=== PATIENT | male | born 1960 | race Caucasian/White ===

== ENCOUNTER 2017-08-10 09:43 | Emergency (ER) | payer MEDICARE ==
[~2017-08-10] VITALS: Ht 180.3 cm; Wt 98.9 kg
[~2017-08-10 09:43] MED LIST: AMBIEN10 MG PO; ATORVASTATIN CA10 MG PO; CLONIDINE HCL0.1 MG PO; LYRICA150 MG PO; NORCO 10-325 T1 EACH PO; OXYCODONE-ACET1 EAC1 PO; SOMA350 MG PO; VALIUM10 MG PO; ZANAFLEX4 M1 PO; [UNRECOGNIZED DRUG - OTHER] PO
[2017-08-10] MEDS ORDERED: BYSTOLIC10 MG PO (09:51)
[2017-08-10] MEDS ORDERED: HYDROCODONE 7.5MG/IBUPROFEN 200MG TAB PO STA (10:22)
[2017-08-10 10:27] LABS: BASOPHILS # (AUTO) 0.1 (0.0-0.1); BASOPHILS % 0.5 % (0.0-1.0); EOSINOPHILS # (AUTO) 0.2 (0.0-0.4); HEMATOCRIT 46.6 % (38.2-49.6); HEMOGLOBIN 16.2 g/dL (14.0-18.0); LYMPHOCYTES # (AUTO) 1.7 (1.0-3.2); LYMPHOCYTES % 17.4 % (18.0-39.1); MEAN CORPUSCULAR HEMOGLOBIN 29.7 pg (28-32); MEAN CORPUSCULAR HGB CONC 34.8 g/dL (31-35); MEAN CORPUSCULAR VOLUME 85.3 fL (81-99); MONOCYTES # (AUTO) 0.5 (0.2-0.8); MONOCYTES % 5.4 % (4.4-11.3); NEUTROPHILS # (AUTO) 7.1 (2.1-6.9); NEUTROPHILS % 74.4 % (38.7-80.0); PLATELET COUNT 147 x10e3/uL (140-360); RED BLOOD COUNT 5.46 x10e6/uL (4.3-5.7); RED CELL DISTRIBUTION WIDTH 12.6 % (11.7-14.4)
[2017-08-10] MEDS ORDERED: FAMOTIDINE 20 MG TAB PO ONE (10:30)
[2017-08-10 10:31] LABS: INR 1.05; PROTHROMBIN TIME 12.9 seconds (11.9-14.5)
[2017-08-10 10:32] LABS: PARTIAL THROMBOPLASTIN TIME 26.6 seconds (23.8-35.5)
[2017-08-10] MEDS ORDERED: ONDANSETRON HCL INJ 2 MG/ML VIAL IV STA (10:37)
[2017-08-10 10:40] LABS: ALANINE AMINOTRANSFERASE 36 IU/L (0-55); ALBUMIN/GLOBULIN RATIO 1.3 (0.8-2.0); ALKALINE PHOSPHATASE 75 IU/L (40-150); AMYLASE 33 U/L (25-125); ANION GAP 12.1 mmol/L (8-16); BLOOD UREA NITROGEN 16 mg/dL (7-26); BUN/CREATININE RATIO 15 (6-25); CALCIUM 9.5 mg/dL (8.4-10.2); CARBON DIOXIDE 25 mmol/L (22-29); CHLORIDE 108 mmol/L (98-107); CREATINE KINASE 92 IU/L (30-200); CREATININE, SERUM 1.09 mg/dL (0.72-1.25); EST GLOMERULAR FILTRATION RATE > 60 ML/MIN (60-); GLUCOSE 150 mg/dL (74-118); LIPASE 34 U/L (8-78); POTASSIUM 4.1 mmol/L (3.5-5.1); SODIUM 141 mmol/L (136-145)
[2017-08-10] MEDS ORDERED: DONNATAL/LIDOCAINE/MAALOX 30 ML SUSP PO NR (10:45)
[2017-08-10 10:48] LABS: CLARITY,URINE SL CLOUDY (CLEAR); COLOR,URINE YELLOW (YELLOW); LEUKOCYTE ESTERASE ,URINE NEGATIVE (NEGATIVE)
[2017-08-10 10:49] LABS: BILIRUBIN,URINE NEGATIVE (NEGATIVE); EPITHELIAL CELLS,URINE RARE /LPF; KETONES,URINE NEGATIVE (NEGATIVE); NITRITE,URINE NEGATIVE (NEGATIVE); PROTEIN,URINE DIPSTICK NEGATIVE (NEGATIVE); RBC,URINE 0-5 /HPF (0-5); URINE UROBILINOGEN 0.2 mg/dL (0.2 - 1)
[2017-08-10 10:50] LABS: MUCUS,URINE RARE (RARE)
[2017-08-10 10:51] LABS: CALCIUM OXALATE CRYSTALS,UR RARE (FEW)
[2017-08-10] MEDS ORDERED: FENTANYL CITRATE/PF 100MCG/2 ML INJ IV ONE (11:00)
--- NOTE | 2017-08-10 11:40 | Diagnostic Imaging Report ---
PROCEDURE: CT ABDOMEN AND PELVIS WITH CONTRAST TECHNIQUE: The abdomen and pelvis were scanned utilizing a multidetector helical scanner from the diaphragm to the lesser trochanter after the IV administration of 100 cc of Isovue 370 and the oral administration of 100 mL of Isovue-370. Coronal and sagittal multiplanar reformations were obtained. COMPARISON: None. INDICATIONS: ABDOMINAL PAIN FINDINGS: LOWER THORAX: Normal. HEPATOBILIARY: Subcentimeter hypodensities in both lobes of the liver (series 2, images 27 and 13) are unchanged and likely represent small cysts. No suspicious hepatic lesions. There has been a cholecystectomy. No biliary ductal dilatation. SPLEEN: No splenomegaly. PANCREAS: No focal masses or ductal dilatation. ADRENALS: No adrenal nodules. KIDNEYS/URETERS: No hydronephrosis or solid mass lesions. 3 mm nonobstructing stone in the lower pole the right kidney (series 2 image 38). PELVIC ORGANS/BLADDER: Dystrophic calcifications of the prostate gland, unchanged. Bladder is unremarkable. PERITONEUM / RETROPERITONEUM: No free air or fluid. LYMPH NODES: No lymphadenopathy. VESSELS: Mild atherosclerotic calcifications of the aorta and its branches. GI TRACT: No distention or wall thickening. There are postsurgical changes from prior appendectomy. BONES AND SOFT TISSUES: Severe degenerative changes at L4-L5 and L5-S1 with sclerosis of L4 and L5. There is endplate irregularity at L5-S1. The appearance is unchanged since at least 12/17/2016. IMPRESSION: Stable 3 mm nonobstructing stone in the right kidney. No ureteral stones. No other findings to explain the patient's abdominal pain. There has been a cholecystectomy and appendectomy. Dictated by: Matthew Salazar M.D. on 08/10/2017 at 11:41 Electronically approved by: Matthew Salazar M.D. on 08/10/2017 at 11:41
[2017-08-10] MEDS ORDERED: SODIUM CHLORIDE 0.9% 50ML 50 ML ONE (11:42)
[2017-08-10] MEDS ORDERED: IOPAMIDOL 370 MG/ML 200 ML INFUS..BTL INJ ONE (11:43)
[2017-08-10] MEDS ORDERED: DONNATAL/LIDOCAINE/MAALOX 30 ML SUSP PO SCH (15:00)
== END 2017-08-10 12:24 | disposition home or self-care (01) ==
LOC: ER 09:43
DX: R10.13 Epigastric pain (principal); R11.0 Nausea; K29.20 Alcoholic gastritis without bleeding; K21.0 Gastro-esophageal reflux disease with esophagitis; F17.210 Nicotine dependence, cigarettes, uncomplicated
CPT/HCPCS: 36415; 74177; 80053; 81001; 82150; 82550; 82553; 83690; 84484; 85025; 85610; 85730; 93005; 99284; J2405; Q9967

== ENCOUNTER → 2018-02-03 | Day surgery (SDC) | payer MEDICARE ==
[~2018-02-03] MED LIST changes: +BYSTOLIC10 MG PO; +FENTANYL CITRATE/PF 100MCG/2 ML INJ ONE; +MIDAZOLAM HCL 2 MG/2 ML VIAL ONE; +NICOTINE PATCH; +PROPOFOL IV EMULSION 10 MG/ML 50 ML VIAL ONE
--- NOTE | 2018-02-03 13:08 | Operative Report ---
DATE OF PROCEDURE: February 03, 2018 REFERRING PHYSICIAN: Dr. Julien Wilson PROCEDURE PERFORMED: Esophagogastroduodenoscopy with biopsies and esophageal dilatation. INDICATIONS FOR EGD: Dysphagia, nausea, epigastric pain. MEDICATION: Patient was done under MAC. Please see anesthesiologist's note. PROCEDURE: With the patient in the left lateral decubitus position, the flexible fiberoptic Olympus gastroscope was introduced into the esophagus under direct visualization without any difficulty. There were some minute tongues of velvety red mucosa noted to extend proximally from the GE junction. Biopsies were obtained to rule out Mar's. The esophagus was then dilated to a size 52-Estonian Gibson. The scope was then advanced with ease into the stomach, and the mucosa overlying the antrum revealed some patchy intense erythema and moderate edema, and biopsies were obtained and sent to stain for H. pylori. There was an approximately 5-mm peripyloric fold noted that was biopsied. The scope was then advanced with ease into the 2nd portion of the duodenum. Some of the folds in the proximal 2nd portion were somewhat scalloped, and biopsies were obtained to rule out sprue. Mucosa overlying the duodenal bulb appeared to be within normal limits. The scope was then withdrawn back into the stomach and retroflexed. The mucosa overlying the fundus and the cardia appeared to be within normal limits. The scope was then straightened out. The stomach was decompressed. The scope was subsequently withdrawn. Patient tolerated the procedure well. IMPRESSION 1. Distal esophagitis, mild. 2. Esophagus dilated to a size 52-Estonian Gibson. 3. Rule out Mar's esophagus. 4. Gastritis, biopsied. Biopsies sent to stain for H. pylori. 5. Peripyloric fold, approximately 5 mm, biopsied. 6. Rule out sprue. PLAN: Follow up histology. Initiate Protonix 40 mg 1 p.o. q.a.m. a.c. Job#: [id number] cc:MOLINA WILSON DO
[2018-02-03 13:25] VITALS: BP 153/102
== END | disposition home or self-care (01) ==
LOC: OR 09:13
PROVIDERS: ATTEND Internal Medicine Gastroenterology
DX: K22.2 Esophageal obstruction (principal); K29.70 Gastritis, unspecified, without bleeding; K31.89 Other diseases of stomach and duodenum; K59.00 Constipation, unspecified; I10 Essential (primary) hypertension; F41.9 Anxiety disorder, unspecified; K21.9 Gastro-esophageal reflux disease without esophagitis; F17.210 Nicotine dependence, cigarettes, uncomplicated; Z88.6 Allergy status to analgesic agent; Z88.8 Allergy status to other drugs, medicaments and biological substances; Z01.810 Encounter for preprocedural cardiovascular examination; Z68.30 Body mass index [BMI] 30.0-30.9, adult
CPT/HCPCS: 43239; 43450; 88305; 88312; 93005; J2250

== ENCOUNTER 2018-05-17 13:46 | Emergency (ER) | payer MEDICARE ==
[~2018-05-17] VITALS: Ht 180.3 cm; Wt 103.4 kg
[~2018-05-17 13:46] MED LIST changes: -FENTANYL CITRATE/PF 100MCG/2 ML INJ ONE; -MIDAZOLAM HCL 2 MG/2 ML VIAL ONE; -PROPOFOL IV EMULSION 10 MG/ML 50 ML VIAL ONE
[2018-05-17] MEDS ORDERED: CEFTRIAXONE SOD 1 GM/NS 50 ML 50 ML IV ONE ×3 (13:55→15:30)
[2018-05-17] MEDS ORDERED: METHYLPREDNISOLONE SOD SUCC 125 MG/2ML VIAL IV STA (13:55)
[2018-05-17] MEDS ORDERED: AZITHROMYCIN 500MG/NS 250 ML 250 ML IV ONE ×2 (13:55→15:30)
[2018-05-17] MEDS ORDERED: IPRATROPIUM BROMIDE 0.02% 2.5 ML NEB NEB STA (13:55)
[2018-05-17] MEDS ORDERED: SODIUM CHLORIDE 0.9% 1000ML 1,000 ML IV STA (13:55)
[2018-05-17] MEDS ORDERED: BENZONATATE 100 MG CAP PO ONE ×2 (14:00→15:30)
[2018-05-17 14:33] LABS: BASOPHILS % 0.5 % (0.0-1.0); EOSINOPHILS # (AUTO) 0.1 (0.0-0.4); EOSINOPHILS % 0.8 % (0.0-6.0); HEMATOCRIT 42.1 % (38.2-49.6); HEMOGLOBIN 14.6 g/dL (14.0-18.0); LYMPHOCYTES # (AUTO) 0.4 (1.0-3.2); LYMPHOCYTES % 6.5 % (18.0-39.1); MEAN CORPUSCULAR HGB CONC 34.7 g/dL (31-35); MEAN CORPUSCULAR VOLUME 86.6 fL (81-99); MONOCYTES # (AUTO) 0.6 (0.2-0.8); MONOCYTES % 9.5 % (4.4-11.3); NEUTROPHILS % 82.4 % (38.7-80.0); PLATELET COUNT 143 x10e3/uL (140-360); RED BLOOD COUNT 4.86 x10e6/uL (4.3-5.7); RED CELL DISTRIBUTION WIDTH 12.5 % (11.7-14.4)
[2018-05-17 14:40] LABS: INR 0.9; PARTIAL THROMBOPLASTIN TIME 28.3 seconds (23.8-35.5)
[2018-05-17] MEDS ORDERED: ACETAMINOPHEN 325 MG TAB PO ONE ×2 (14:45→15:30)
[2018-05-17 14:51] LABS: ALANINE AMINOTRANSFERASE 34 IU/L (0-55); ALBUMIN 4.1 g/dL (3.5-5.0); ALBUMIN/GLOBULIN RATIO 1.7 (0.8-2.0); ALKALINE PHOSPHATASE 82 IU/L (40-150); ANION GAP 13.1 mmol/L (8-16); BLOOD UREA NITROGEN 15 mg/dL (7-26); BUN/CREATININE RATIO 12 (6-25); CARBON DIOXIDE 22 mmol/L (22-29); CHLORIDE 103 mmol/L (98-107); CREATINE KINASE 214 IU/L (30-200); CREATININE, SERUM 1.26 mg/dL (0.72-1.25); EST GLOMERULAR FILTRATION RATE 59 ML/MIN (60-); GLUCOSE 105 mg/dL (74-118); POTASSIUM 4.1 mmol/L (3.5-5.1); SODIUM 134 mmol/L (136-145)
[2018-05-17 15:02] LABS: B-TYPE NATRIURETIC PEPTIDE2 102.7 pg/mL (0-100)
[2018-05-17] MEDS ORDERED: AZITHROMYCIN 500MG/NS 250 ML 250 ML ONE (15:25)
[2018-05-17] MEDS ORDERED: ACETAMINOPHEN 325 MG TAB ONE (15:26)
[2018-05-17] MEDS ORDERED: BENZONATATE 100 MG CAP ONE (15:27)
[2018-05-17 15:36] LABS: INFLUENZAE A&B ANTIGEN (RAPID) NEGATIVE (NEGATIVE)
[2018-05-17 15:37] LABS: STREPTOCOCCUS GRP A ANTIGEN NEGATIVE (NEGATIVE)
[2018-05-17] MEDS ORDERED: HYDROCODONE/APAP 10MG-325MG TAB PO ONE (16:30)
--- NOTE | 2018-05-17 16:33 | Diagnostic Imaging Report ---
Frontal and lateral views of the chest. HISTORY: Trouble breathing COMPARISON: None available. DISCUSSION: Lungs: Prominence of the peribronchial markings. No evidence of a consolidative pneumonia or pulmonary alveolar edema. A 5 mm left mid to upper lung zone calcified granuloma. Pleura: No pleural effusion or pneumothorax. Heart and mediastinum: The cardiomediastinal silhouette appears unremarkable. Bones: Straightening of the normal thoracic kyphosis. IMPRESSION: 1. Findings which could be seen in the setting of bronchitis. 2. No consolidative pneumonia. Signed by: Dr. Gary Peralta D.O., M.M.M. on 05/17/2018 3:23 PM
[2018-05-17] MEDS ORDERED: HYDROMORPHONE 1MG/1ML INJ IV PRN (16:45)
[2018-05-17] MEDS ORDERED: HYDROMORPHONE 2MG/ML 2 MG/ML ML IV PRN (17:00)
[2018-05-17 18:12] VITALS: BP 134/90
== END 2018-05-17 19:25 | disposition home or self-care (01) ==
LOC: ER 13:46
DX: R05 Cough (principal); J20.9 Acute bronchitis, unspecified; S39.012A Strain of muscle, fascia and tendon of lower back, initial encounter; I10 Essential (primary) hypertension
CPT/HCPCS: 36415; 71046; 80053; 82550; 82553; 83518; 83605; 83880; 84484; 85025; 85610; 85730; 87040; 87070; 87400; 99284; J0456; J0696; J1170; J2930; J7030

== ENCOUNTER 2018-05-19 19:54 | Inpatient (IN) | payer MEDICARE ==
[~2018-05-19] VITALS: Ht 180.3 cm; Wt 102.3 kg
[2018-05-19] MEDS ORDERED: ALBUTEROL SULF 0.083% NEB SOLN 3 ML NEB NEB STA (20:44)
[2018-05-19] MEDS ORDERED: IPRATROPIUM BROMIDE 0.02% 2.5 ML NEB NEB STA (20:44)
--- NOTE | 2018-05-19 21:15 | NUR ---
RESP CALLED FOR HHN [place]
--- NOTE | 2018-05-19 21:27 | Diagnostic Imaging Report ---
EXAM: CHEST 2 VIEWS, PA and lateral INDICATION: Cough COMPARISON: PA and lateral view of the chest May 17, 2017 FINDINGS: LINES/TUBES: None LUNGS: No consolidations or edema. Nodular density projects over the left hilum is most consistent with an end-on vessel. PLEURA: No effusions or pneumothorax. HEART AND MEDIASTINUM: Normal size and contour. BONES AND SOFT TISSUES: No acute findings. 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 IMPRESSION: No consolidative pneumonia. Signed by: Dr. Katie Jang M.D. on 05/19/2018 9:24 PM
[2018-05-19] MEDS ORDERED: PANTOPRAZOLE 40 MG 10ML VIAL IV STA (22:49)
[2018-05-19] MEDS ORDERED: ONDANSETRON HCL INJ 2 MG/ML VIAL IV STA (22:49)
[2018-05-19] MEDS ORDERED: SODIUM CHLORIDE 0.9% 1000ML 1,000 ML IV STA ×2 (22:49→23:49)
[2018-05-19] MEDS ORDERED: HYDROMORPHONE 1MG/1ML INJ IV STA (22:49)
[2018-05-19] MEDS ORDERED: METHYLPREDNISOLONE SOD SUCC 125 MG/2ML VIAL IV STA (22:57)
[2018-05-19 23:08] LABS: BASOPHILS % 0.5 % (0.0-1.0); EOSINOPHILS % 0.2 % (0.0-6.0); HEMATOCRIT 43.5 % (38.2-49.6); HEMOGLOBIN 14.5 g/dL (14.0-18.0); LYMPHOCYTES % 23.8 % (18.0-39.1); MEAN CORPUSCULAR HGB CONC 33.3 g/dL (31-35); MEAN CORPUSCULAR VOLUME 90.1 fL (81-99); MONOCYTES # (AUTO) 0.5 (0.2-0.8); MONOCYTES % 11.3 % (4.4-11.3); NEUTROPHILS # (AUTO) 2.8 (2.1-6.9); PLATELET COUNT 124 x10e3/uL (140-360); RED BLOOD COUNT 4.83 x10e6/uL (4.3-5.7); RED CELL DISTRIBUTION WIDTH 12.6 % (11.7-14.4)
[2018-05-19] MEDS ORDERED: HYDROMORPHONE 2MG/ML 2 MG/ML ML ONE (23:10)
[2018-05-19 23:27] LABS: ALBUMIN 3.7 g/dL (3.5-5.0); ALBUMIN/GLOBULIN RATIO 1.2 (0.8-2.0); ANION GAP 17.9 mmol/L (8-16); CALCIUM 9.3 mg/dL (8.4-10.2); CREATININE, SERUM 1.27 mg/dL (0.72-1.25); MAGNESIUM 2.1 MG/DL (1.3-2.1); POTASSIUM 3.9 mmol/L (3.5-5.1)
[2018-05-19 23:33] LABS: CREATINE KINASE MB 0.9 ng/mL (0-5.0)
[2018-05-19 23:44] LABS: INR 0.84; PARTIAL THROMBOPLASTIN TIME 28.8 seconds (23.8-35.5); PROTHROMBIN TIME 12.3 seconds (11.9-14.5)
[2018-05-19] MEDS ORDERED: SODIUM CHLORIDE 0.9% 1000ML 1,000 ML ONE (23:58)
[2018-05-20] VITALS (8 sets, daily range): BP systolic 136–159; BP diastolic 81–92
[2018-05-20] MEDS: CEFTRIAXONE SOD 1 GM/NS 50 ML 50 ML IV SCH ×2 (00:03→12:33)
[2018-05-20] MEDS: AZITHROMYCIN 500MG/NS 250 ML 250 ML IV SCH ×2 (00:03→08:48)
--- NOTE | 2018-05-20 00:07 | NUR ---
pt given urinal, inst on need for urine, verbalized understanding. call painter in reach
--- NOTE | 2018-05-20 00:54 | Diagnostic Imaging Report ---
EXAM: CT CHEST W INDICATION: Shortness of breath COMPARISON: None TECHNIQUE: Multidetector CT scanning of the chest was performed. Coronal and sagittal multiplanar reformations were obtained. Dose modulation, iterative reconstruction, and/or weight based adjustment of the mA/kV was utilized to reduce the radiation dose to as low as reasonably achievable. PE protocol performed. IV Contrast: 100 cc Isovue-370 CTDIvol has been reviewed. It is below the limits set by the Radiation Protocol Committee (RPC). FINDINGS: LUNGS AND AIRWAYS: The trachea and major bronchi are unremarkable. No consolidations or edema. Mild central bronchial thickening. PLEURA: No effusions or pneumothorax. HEART, MEDIASTINUM, VESSELS: The heart is within normal size limits. There is no pericardial effusion. No mediastinal mass or lymphadenopathy. No evidence of a pulmonary embolism. Multiple artifacts in subsegmental vessels secondary to motion. UPPER ABDOMEN: Normal MUSCULOSKELETAL: No acute findings. IMPRESSION: No evidence of a pulmonary embolism. Signed by: Dr. Katie Jang M.D. on 05/20/2018 12:51 AM
[2018-05-20] MEDS ORDERED: ATORVASTATIN CA10 MG PO (01:06)
[2018-05-20] MEDS ORDERED: BYSTOLIC10 MG PO (01:06)
[2018-05-20] MEDS ORDERED: DIAZEPAM10 MG PO (01:06)
[2018-05-20] MEDS ORDERED: ZOLPIDEM TARTRA10 MG PO (01:06)
[2018-05-20] MEDS ORDERED: HYDROCODON-ACE1 EAC9 PO (01:06)
[2018-05-20] MEDS ORDERED: ONDANSETRON HCL INJ 2 MG/ML VIAL IV PRN (01:15)
[2018-05-20] MEDS ORDERED: FAMOTIDINE 20 MG/2 ML VIAL IV SCH (01:15)
[2018-05-20] MEDS ORDERED: ZOLPIDEM TARTRATE 10 MG TAB PO STA (01:20)
[2018-05-20 01:36] LABS: AMPHETAMINES SCREEN,URINE NEGATIVE (NEGATIVE); BENZODIAZEPINES SCREEN,URINE POSITIVE (NEGATIVE); PHENCYCLIDINE SCREEN,URINE NEGATIVE (NEGATIVE)
[2018-05-20] MEDS: SODIUM CHLORIDE 0.9% 1000ML 1,000 ML IV SCH ×4 (01:38→18:17)
--- NOTE | 2018-05-20 01:38 | NUR ---
pt requesting higher dose of dilaudid. states 1mg not helping his pain. dr encinas aware, no new orders, advised pt he may receive dilaudid 1mg q4hr prn pain, verbalized understanding.
[2018-05-20 01:41] LABS: BILIRUBIN,URINE NEGATIVE (NEGATIVE); CLARITY,URINE CLEAR (CLEAR); COLOR,URINE YELLOW (YELLOW); KETONES,URINE 1+ (NEGATIVE); LEUKOCYTE ESTERASE ,URINE NEGATIVE (NEGATIVE); NITRITE,URINE NEGATIVE (NEGATIVE); PROTEIN,URINE DIPSTICK NEGATIVE (NEGATIVE); URINE UROBILINOGEN 0.2 mg/dL (0.2 - 1)
--- NOTE | 2018-05-20 01:47 | NUR ---
attempted to call report without success
[2018-05-20 01:49] LABS: BACTERIA,URINE RARE /HPF; EPITHELIAL CELLS,URINE RARE /LPF; MUCUS,URINE FEW (RARE); RBC,URINE 0-5 /HPF (0-5); WBC,URINE (MAN) 0-5 /HPF (0-5)
[2018-05-20] MEDS: HYDROMORPHONE 2MG/ML 2 MG/ML ML IV PRN ×5 (03:15→20:19)
--- NOTE | 2018-05-20 03:18 | NUR ---
CONT TO COMPLAIN OF CHEST WALL AND BACK PAIN, REQUESTING PAIN MEDICATIONS, MEDICATED PER ORDERS.
[2018-05-20] MEDS: ALBUTEROL SULF 0.083% NEB SOLN 3 ML NEB NEB SCH ×6 (04:15→23:15)
[2018-05-20] MEDS: IPRATROPIUM BROMIDE 0.02% 2.5 ML NEB NEB SCH ×6 (04:15→23:15)
[2018-05-20] MEDS ORDERED: SODIUM CHLORIDE 0.9% 50ML 50 ML ONE (06:12)
[2018-05-20] MEDS ORDERED: IOPAMIDOL 370 MG/ML 200 ML INFUS..BTL INJ ONE (06:12)
[2018-05-20 06:47] LABS: BASOPHILS % 0.3 % (0.0-1.0); HEMATOCRIT 37.2 % (38.2-49.6); HEMOGLOBIN 12.4 g/dL (14.0-18.0); LYMPHOCYTES # (AUTO) 0.5 (1.0-3.2); LYMPHOCYTES % 16.3 % (18.0-39.1); MEAN CORPUSCULAR HEMOGLOBIN 29.5 pg (28-32); MEAN CORPUSCULAR HGB CONC 33.3 g/dL (31-35); MEAN CORPUSCULAR VOLUME 88.4 fL (81-99); MONOCYTES # (AUTO) 0.1 (0.2-0.8); MONOCYTES % 2.6 % (4.4-11.3); NEUTROPHILS # (AUTO) 2.5 (2.1-6.9); NEUTROPHILS % 80.5 % (38.7-80.0); PLATELET COUNT 116 x10e3/uL (140-360); RED BLOOD COUNT 4.21 x10e6/uL (4.3-5.7); RED CELL DISTRIBUTION WIDTH 12.7 % (11.7-14.4)
--- NOTE | 2018-05-20 07:15 | NUR ---
Pt alert resp even and unlabored at this time no distress noted, pt able to make needs known, no c/o pain when asked, call light in reach.
[2018-05-20 07:16] LABS: CREATINE KINASE MB 1.2 ng/mL (0-5.0)
[2018-05-20 07:29] LABS: ALANINE AMINOTRANSFERASE 27 IU/L (0-55); ALBUMIN 3.1 g/dL (3.5-5.0); ALBUMIN/GLOBULIN RATIO 1.1 (0.8-2.0); ALKALINE PHOSPHATASE 58 IU/L (40-150); ANION GAP 11.5 mmol/L (8-16); BLOOD UREA NITROGEN 12 mg/dL (7-26); BUN/CREATININE RATIO 12 (6-25); CALCIUM 8.3 mg/dL (8.4-10.2); CARBON DIOXIDE 24 mmol/L (22-29); CHLORIDE 102 mmol/L (98-107); CREATININE, SERUM 1.03 mg/dL (0.72-1.25); EST GLOMERULAR FILTRATION RATE > 60 ML/MIN (60-); GLUCOSE 148 mg/dL (74-118); POTASSIUM 4.5 mmol/L (3.5-5.1); SODIUM 133 mmol/L (136-145)
--- NOTE | 2018-05-20 07:50 | NUR ---
spoke with Dr. Steve, about pt meds, he states cont home meds.
[2018-05-20] MEDS: FAMOTIDINE 20 MG/2 ML VIAL IV SCH ×2 (08:31→20:19)
[2018-05-20] MEDS: ASPIRIN 81 MG ENTERIC COATED PO SCH (08:31)
[2018-05-20] MEDS: HYDROCODONE/APAP 10MG-325MG TAB PO SCH ×4 (08:32→20:20)
[2018-05-20] MEDS: DIAZEPAM 5 MG TAB PO SCH (08:48)
[2018-05-20] MEDS ORDERED: HYDROCODONE/APAP 10MG-325MG TAB PO SCH (09:00)
[2018-05-20] MEDS ORDERED: NON-FORMULARY MEDICATION (Diazepam 10 MG) PO SCH (09:00)
[2018-05-20] MEDS ORDERED: ATORVASTATIN 10 MG TAB PO SCH ×3 (09:00→21:00)
--- NOTE | 2018-05-20 10:55 | NUR ---
SOCIAL WORK INITIAL ASSESSMENT Textile Science Technician to bedside to discuss plan of care with patient/family. CM/SW role and care transitions discussed. Anticipated discharge plan discussed along with duration of care. CM/SW discussed patients right to make decisions in care. CM/SW work hours given. Patient lives: IN OWN HOUSE WITH DAUGHTER Admit/Transfer: VIA ED FROM HOME POA/Emergency contact: SISTER KHALIF HATHAWAY [phone] Current/Previous Home Health: NONE PCP/Follow-up Care: [facility] Current/Previous DME: NONE Other Services: NONE Employment Status: RETIRED Areas of Concerns: QUIT SMOKING 1ST OF YEAR ON PATCH Referral Needs: NONE Education Needs: NONE IMM/BUSTOS given and signed (if applicable): IMM AND BUSTOS IN CHART Goal for discharge: RETURN HOME INDEPENDENTLY CM/SW left business card at the bedside with contact information. Name and number was also written on the patients whiteboard. Patient verbalized understanding of discussion. CM will follow-up with ongoing discharge and transition of care needs.
[2018-05-20] MEDS ORDERED: METHYLPREDNISOLONE SOD SUCC 125 MG/2ML VIAL IV ONE (11:30)
[2018-05-20] MEDS: NEBIVOLOL 10 MG TAB PO SCH (12:33)
[2018-05-20] MEDS: METHYLPREDNISOLONE SOD SUCC 40 MG/ML VIAL 1ML IV SCH ×2 (15:31→21:17)
[2018-05-20 16:00] LABS: CREATINE KINASE MB 1.2 ng/mL (0-5.0)
--- NOTE | 2018-05-20 19:08 | NUR ---
report given to on coming nurse for continued care.
--- NOTE | 2018-05-20 19:10 | NUR ---
REPORT RECEIVED FROM OFF GOING NURSE, PT RESTING IN BED ALERT AND ORIENTED, NO DISTRESS NOTED, DENIES NEEDS, CALL LIGHT IN REACH INSTRUCTED TO CALL WITH NEEDS
[2018-05-20] MEDS: ZOLPIDEM TARTRATE 10 MG TAB PO PRN (20:19)
[2018-05-20] MEDS ORDERED: NON-FORMULARY MEDICATION (Zolpidem Tartrate 10 MG) PO SCH (21:00)
[2018-05-21] VITALS (9 sets, daily range): BP systolic 158–169; BP diastolic 74–96
[2018-05-21] MEDS: SODIUM CHLORIDE 0.9% 1000ML 1,000 ML IV SCH ×5 (00:07→23:51)
[2018-05-21] MEDS: HYDROMORPHONE 2MG/ML 2 MG/ML ML IV PRN ×2 (00:19→04:19)
[2018-05-21] MEDS: ALBUTEROL SULF 0.083% NEB SOLN 3 ML NEB NEB SCH ×5 (03:05→23:32)
[2018-05-21] MEDS: IPRATROPIUM BROMIDE 0.02% 2.5 ML NEB NEB SCH ×5 (03:05→23:32)
[2018-05-21] MEDS: METHYLPREDNISOLONE SOD SUCC 40 MG/ML VIAL 1ML IV SCH ×3 (05:22→21:11)
[2018-05-21 05:48] LABS: CHOL/HDL RATIO 3.6 (3.9-4.7)
[2018-05-21] MEDS ORDERED: FENTANYL 50 MCG/HR PATCH TOP SCH (07:00)
--- NOTE | 2018-05-21 07:23 | NUR ---
pt at nurses station during shift change. wanting to review his emar. upset about pain medication schedule "thought i was getting it like ever 2 hours between the pill and dilala". ed pt of current meds ordered and schedule availability. night nurse ed pt new orders recvd to change medications. pt wanting patch now and norco 'as soon as its due'. pt does not appear to have any s/s distress at this time, returned to his room. when doing morning rounds to room, pt stated 'dont forget to bring that patch brayden and the pain pill as soon as due. i need new batteries in the clock too so i can keep up with the schedule'. ed pt would admin rx as soon as available. no s/s distress noted.
[2018-05-21] MEDS: ASPIRIN 81 MG ENTERIC COATED PO SCH (08:41)
[2018-05-21] MEDS: AZITHROMYCIN 500MG/NS 250 ML 250 ML IV SCH (08:41)
[2018-05-21] MEDS: FAMOTIDINE 20 MG/2 ML VIAL IV SCH (08:41)
[2018-05-21] MEDS: HYDROCODONE/APAP 10MG-325MG TAB PO SCH ×4 (08:41→21:00)
[2018-05-21] MEDS: NEBIVOLOL 10 MG TAB PO SCH (08:41)
[2018-05-21] MEDS: DIAZEPAM 5 MG TAB PO SCH (08:42)
[2018-05-21] MEDS ORDERED: MORPHINE SULFATE 2 MG/ML SYR 1ML IV PRN (11:00)
--- NOTE | 2018-05-21 11:00 | NUR ---
pt upset about dilaudid being dc, states he normally 'takes 3 norco at home at a time'. states he 'was doing just fine with the dilala' and now his stomach is hurting him. ed pt about opiod constipation. ed would request medication to help with bm and speak with MD about complaints.
[2018-05-21] MEDS ORDERED: MORPHINE SULFATE INJ 4 MG/ML INJ 1ML IV PRN (11:15)
[2018-05-21] MEDS: BISACODYL 5 MG TAB EC PO SCH (11:30)
[2018-05-21] MEDS: GUAIFENESIN 200 MG/10 ML UDC PO PRN ×2 (11:30→21:12)
[2018-05-21] MEDS: CEFTRIAXONE SOD 1 GM/NS 50 ML 50 ML IV SCH ×3 (11:30→23:51)
[2018-05-21] MEDS: LIDOCAINE 5% PATCH TP SCH (11:30)
[2018-05-21] MEDS: DOCUSATE SODIUM 100 MG CAP PO SCH (11:30)
--- NOTE | 2018-05-21 11:30 | NUR ---
recv orders to add lidocaine patch to pt, along with iv and bm medications. admin to pt. pt resting in bed with no s/s distress. pt stated 'make sure to have my pill when due at 1300'.
--- NOTE | 2018-05-21 11:44 | History and Physical ---
HISTORY OF PRESENT ILLNESS: A 58-year-old male with past medical history positive for COPD and chronic back pain. Came here with shortness of breath and cough and fever and worsening of the back pain. REVIEW OF SYSTEMS CARDIOVASCULAR: No chest pain or palpitation. RESPIRATORY: He does have shortness of breath and cough. GASTROINTESTINAL: No nausea. No vomiting. No diarrhea. GENITOURINARY: No frequency or dysuria. ALLERGIES: HE IS ALLERGIC TO CODEINE AND MORPHINE LISINOPRIL. SOCIAL HISTORY: He smokes. He drinks alcohol socially according to him. PAST MEDICAL HISTORY: Positive for chronic back pain and COPD. PHYSICAL EXAMINATION VITAL SIGNS: Blood pressure 168/90, temperature 96.8, heart rate 82 per minute, respiratory rate is 20 per minute, oxygen saturation 100%. Chest x-ray showed no significant abnormalities. Chest CT: no pulmonary embolism. LABORATORY DATA: On the blood work, we have BMP with sodium 133, potassium 4.5, chloride 102, CO2 24, BUN 12, creatinine 1.03, glucose 148. CBC white blood count 3.13, hemoglobin 12.4, hematocrit 37.2, platelet count 116,000. PT 12.3, INR 0.84, PTT 28.8. AST 34, ALT 37, total bilirubin 0.3, alkaline phosphatase 58. FINAL IMPRESSION 1. Chronic obstructive pulmonary disease exacerbation. 2. Rhabdomyolysis. 3. Chronic back pain. 4. Pancytopenia. 5. Uncontrolled hypertension. PLAN OF TREATMENT: Going to get a pulmonary consult, Dr. Regan; pain management consult, Dr. Chanel. The patient had been started on albuterol and Atrovent q.4 hours as needed for shortness of breath, ceftriaxone 2 g IV daily, Zithromax 250 mg IV daily, Pepcid 20 mg twice a day, methylprednisolone 40 mg IV q.8 hours, fentanyl patch 50 mcg q.72 hours, Goodrich 1 tablet q.6 hours as needed, guaifenesin 400 mg q.4 hours as needed, mg daily, Bystolic 10 mg daily, diazepam 10 mg daily as needed for anxiety. Lipitor has been placed on hold because of rhabdomyolysis. Continue Ambien 10 mg at night p.r.n. for sleep. Continue normal saline 125 mL an hour. CPK is going to be ordered for today. We are going to start the patient also on Norvasc at 5 mg daily because of hypertension. Job#: [id number] VIRI
--- NOTE | 2018-05-21 16:46 | NUR ---
pt resting in bed, sleep on side. no s/s distress
--- NOTE | 2018-05-21 19:10 | NUR ---
REPORT RECEIVED FROM OFF GOING NURSE, PT RESTING IN BED ALERT AND ORIENTED, NO DISTRESS NOTED, IV INFUSING PER ORDER, CALL LIGHT IN REACH, INSTRUCTED TO CALL WITH NEEDS
[2018-05-21] MEDS: ZOLPIDEM TARTRATE 10 MG TAB PO PRN (21:11)
[2018-05-21] MEDS: KETOROLAC TROMETHAMINE 30 MG/ML VIAL IV PRN (21:33)
--- NOTE | 2018-05-21 22:42 | NUR ---
PT DEPARTING UNIT, PT AMBULATING WITH WHEEL CHAIR AT SIDE, PT REFUSING WHEEL CHAIR, NO DISTRESS NOTED, BELONGINGS AND STAFF WITH PT, NO NEEDS VOICED, TELEMETRY WORN, IV INFUSING PER ORDER
[2018-05-22 00:31] VITALS: BP 157/86
[2018-05-22] MEDS: HYDROCODONE/APAP 10MG-325MG TAB PO PRN ×3 (00:48→12:10)
--- NOTE | 2018-05-22 00:50 | NUR ---
pt removed telemetry box stated "they have already monitored my heart for 24 hours, i dont need it", asked pt if he would put tele box back on "stated no i dont want it", Dr. Belle notified and order to DC, tele box #[id number] returned to tele nurse
[2018-05-22] MEDS: KETOROLAC TROMETHAMINE 30 MG/ML VIAL IV PRN ×3 (01:30→10:34)
[2018-05-22] MEDS: ALBUTEROL SULF 0.083% NEB SOLN 3 ML NEB NEB SCH ×3 (03:05→10:50)
[2018-05-22] MEDS: IPRATROPIUM BROMIDE 0.02% 2.5 ML NEB NEB SCH ×3 (03:05→11:25)
--- NOTE | 2018-05-22 03:19 | Consultation ---
DATE OF CONSULTATION: May 21, 2018 PULMONARY MEDICINE CONSULT PRIMARY CARE DOCTOR: Dr. Vaughan. REFERRING PHYSICIAN: Dr. Steve. REASON FOR REFERRAL: Shortness of breath. HISTORY: Mr. Lees is a pleasant 58-year-old gentleman with shortness of breath. He has associated cough. There were some fevers that he had. The patient was having increasing back pain due to the cough. He also has abdominal pain due to the cough. Four days prior to coming to the hospital, he did go to another emergency room for a visit, but he failed treatment with steroids and antibiotics. He presents back to the hospital for evaluation. Of note, chest x-ray without acute abnormalities and CT chest with no evidence of PE and otherwise unremarkable. He is admitted as he retains significant work of breathing. PAST MEDICAL HISTORY: Chronic back pain; COPD, he was diagnosed with asthma in his 20s per report; GERD, mild to moderate. No definite allergies. OUTPATIENT MEDICATIONS: As per electronic record. Of note, there are no respiratory medicines that he chronically takes. ALLERGIES: CODEINE, LISINOPRIL, AND MORPHINE. FAMILY HISTORY: Noncontributory to this diagnosis. SOCIAL HISTORY: Patient smokes from age 16 to 58, active, 1.5 packs per day. Alcohol, 2 drinks of liquor per day. No drugs. He is retired for 2 years due to back problems and he was a emergency medical technician facilities operator formerly. REVIEW OF SYSTEMS GENERAL: No weight changes. OPHTHALMOLOGY: No double vision. ENT: No dry mouth. ENDOCRINE: No thyroid disease known. PULMONARY: No hemoptysis. CARDIAC: No heart attacks. GI: Denies constipation. : No blood in the urine. MUSCULOSKELETAL: Mild arthritis. NEUROLOGIC: No seizures. DERMATOLOGIC: No rashes. PSYCHIATRIC: No depression. PHYSICAL EXAMINATION VITALS: Afebrile. Vital signs noted per electronic record. GENERAL: No acute distress, although it hurts him to cough and he is intermittently coughing. HEENT: Normocephalic and atraumatic. Throat is midline. NECK: Supple. LUNGS: Bilateral air entry is moderate, few rhonchi, no rales. CARDIOVASCULAR: S1 and S2. No murmurs, rubs or gallops. ABDOMEN: Soft and nontender. EXTREMITIES: No clubbing. No cyanosis. There is no edema. INTEGUMENT: No rash. No purpura. LABS: White count 4, hematocrit 44, and platelets 124. No eosinophilia on the lab work. Sodium 133, BUN 12, and creatinine 1.0. Calcium 8.3. CK was 652 with unremarkable troponins. Albumin 3.1, total protein is 5.8. IMPRESSION 1. Exacerbation of respiratory disease, presumptive chronic obstructive pulmonary disease. 2. Obesity, possible obstructive sleep apnea or possible obesity hypoventilation syndrome. 3. Reported history of asthma, diagnosed in 20s. 4. Edor-wo-eznqwwgh gastroesophageal reflux disease. 5. Chronic back pain with debility. 6. Thrombocytopenia. 7. Mild rhabdomyolysis. PLAN: Admit the patient for failure of outpatient therapy. Steroids. Bronchodilators. Antibiotics. Cough medicines. Supportive care. Check alpha-1 antitrypsin level and check IgE level to see how allergic he is. Thank you very much, Dr. Steve, for allowing me the chance to participate in the care of Mr. Lees. Do not hesitate to contact me if I can help in any way. Job#: [id number] AYLA
--- NOTE | 2018-05-22 04:30 | NUR ---
pt refused 4am vitals
[2018-05-22 05:55] LABS: ANION GAP 13.2 mmol/L (8-16); BLOOD UREA NITROGEN 14 mg/dL (7-26); BUN/CREATININE RATIO 17 (6-25); CALCIUM 8.8 mg/dL (8.4-10.2); CARBON DIOXIDE 26 mmol/L (22-29); CHLORIDE 105 mmol/L (98-107); CREATININE, SERUM 0.84 mg/dL (0.72-1.25); EST GLOMERULAR FILTRATION RATE > 60 ML/MIN (60-); GLUCOSE 156 mg/dL (74-118); POTASSIUM 4.2 mmol/L (3.5-5.1); SODIUM 140 mmol/L (136-145)
[2018-05-22 07:56] VITALS: BP 147/93
[2018-05-22] MEDS ORDERED: AMLODIPINE BESYLATE 5 MG TAB PO SCH ×2 (09:00)
[2018-05-22] MEDS ORDERED: METHYLPREDNISOLONE SOD SUCC 40 MG/ML VIAL 1ML IV SCH (09:00)
[2018-05-22] MEDS: ASPIRIN 81 MG ENTERIC COATED PO SCH (09:37)
[2018-05-22] MEDS: NEBIVOLOL 10 MG TAB PO SCH (09:37)
[2018-05-22] MEDS: AZITHROMYCIN 500MG/NS 250 ML 250 ML IV SCH (09:37)
[2018-05-22] MEDS: LIDOCAINE 5% PATCH TP SCH (09:38)
[2018-05-22] MEDS: DOCUSATE SODIUM 100 MG CAP PO SCH (09:38)
[2018-05-22] MEDS: BISACODYL 5 MG TAB EC PO SCH (09:38)
[2018-05-22] MEDS: DIAZEPAM 5 MG TAB PO SCH (09:38)
--- NOTE | 2018-05-22 10:00 | NUR ---
Pt is complaining that pain management doctor is not here. Placed a call out to physician and waiting for call back.
--- NOTE | 2018-05-22 10:00 | NUR ---
Went to check on pt and he is in bed asleep. Did speak to pain management doctor and states he will be here to see him today.
[2018-05-22] MEDS: CEFTRIAXONE SOD 1 GM/NS 50 ML 50 ML IV SCH (12:09)
[2018-05-22 13:40] VITALS: BP 156/94
[2018-05-22] MEDS ORDERED: PROAIR HFA INH8.5 GM INH (14:25)
[2018-05-22] MEDS ORDERED: SPIRIVA18 MCG INH (14:25)
[2018-05-22] MEDS ORDERED: PREDNISONE10 MG PO (14:27)
--- NOTE | 2018-05-22 14:42 | NUR ---
Pt states he is leaving and wants to have IV removed otherwise he will be taking it of himself. He sates he is no longer waiting for any doctor to come see him. Dr. Anne was here and let him know about situation. Dr. Anne spoke with pt and also spoke with Dr. Belle and bot agreed to discharge him so pt would not leave AMA.
--- NOTE | 2018-05-22 17:03 | Progress Note ---
DATE: May 22, 2018 PULMONARY MEDICINE PROGRESS NOTE SUBJECTIVE: Mr. Lees was seen and examined at bedside. He continues to have good progress. He is feeling better. He is able to ambulate today, 96% oxygen saturation, room air FiO2. Still with some back pain. REVIEW OF SYSTEMS: No headaches. No rash. OBJECTIVE VITAL SIGNS: Afebrile. Vital signs noted per electronic record. GENERAL: In no acute distress, alert and calm. HEENT: Normocephalic, atraumatic. NECK: Supple. Throat midline. LUNGS: Bilateral air entry, decreased breath sounds. No wheezes today that are heard. Rare rhonchi. CARDIOVASCULAR: S1, S2. No murmurs, rubs, or gallops. ABDOMEN: Soft, nontender. EXTREMITIES: No clubbing. No cyanosis. There is trace edema. INTEGUMENT: No rash or purpura. LABS: As per record. Potassium 4.2, creatinine 0.8. IMPRESSION 1. Chronic obstructive pulmonary disease with exacerbation. 2. Reported history of asthma, possibly diagnosed in 20s. No eddie allergies recalled by the patient. 3. Obesity, possible obstructive sleep apnea or obesity hypoventilation. 4. Gfwj-yw-johifyog gastroesophageal reflux disease. 5. Chronic back pain with debility. 6. Rhabdomyolysis. PLAN: Patient is better. He is breathing better. Long discussion with the patient. He can go home later tonight if he continues to improve. Continue steroids weaning. Continue antibiotics for now but there is consideration to stop if he keeps making progress. Continue bronchodilators. Continue to mobilize him. Job#: [id number] MAEGAN
--- NOTE | 2018-05-23 04:33 | Discharge Summary ---
HOSPITAL COURSE: This is a 58-year-old male with past medical history positive for COPD and chronic back pain, came here with cough and phlegm and worsening back pain. He was started on albuterol and Atrovent, IV antibiotics. Chest x-ray did not show any pneumonia. Patient was seen by Dr. Regan for pulmonary and Dr. Chanel for pain management because of severe back pain. Patient was feeling better. He will be discharged to home by Dr. Regan today also. PHYSICAL EXAM VITAL SIGNS: Blood pressure 147/83, temperature 96.8, heart rate 86 per minute, respiratory rate 16 per minute, oxygen saturation 99%. HEART: Regular rhythm. Normal S1 and S2 sounds. LUNGS: Clear bilaterally. LABORATORY STUDIES: On the blood work, BMP; sodium 140, potassium 4.2, chloride 105, CO2 of 26, BUN 14, creatinine 0.84. Glucose 156. On the CBC; white blood count 3.13, hemoglobin 12.4, hematocrit 37.2, platelet count 160,000. PT 12.3, INR 0.84, and PTT 28.8. AST 34, ALT 27, total bilirubin 0.3, alkaline phosphatase 58. FINAL IMPRESSION 1. Chronic obstructive pulmonary disease exacerbation. 2. Rhabdomyolysis. 3. Chronic pain syndrome. 4. Hypertension. PLAN OF TREATMENT: Patient is going home with Proventil 2 puffs every 4 hours as needed for shortness of breath, Bystolic 10 mg daily. He is taking Rothschild 1 tablet every 4 hours as needed for severe pain, which is 10/325 mg. He is also on Lipitor 10 mg daily. He is going to be on Medrol Dosepak. Continue aspirin 81 mg daily, amlodipine 5 mg daily, antibiotic prescription done by Dr. Flaquito Regan also. Follow up with his primary care physician in a week. Job#: [id number] RTY
[2018-05-24 12:20] LABS: ALPHA-1-ANTITRYPSIN 141 mg/dL (90-200)
== END 2018-05-22 14:39 | disposition home or self-care (01) | DRG 191 ==
LOC: ER 19:54 → ERHOLD 05-20 01:12 → IMCU 05-20 03:23 → OBSVTOIN 05-21 21:16 → MED/SURG2 05-21 22:36
DX: J44.1 Chronic obstructive pulmonary disease with (acute) exacerbation (principal); M62.82 Rhabdomyolysis; D61.818 Other pancytopenia; E66.2 Morbid (severe) obesity with alveolar hypoventilation; G89.4 Chronic pain syndrome; I10 Essential (primary) hypertension; G47.33 Obstructive sleep apnea (adult) (pediatric); M54.9 Dorsalgia, unspecified; K21.9 Gastro-esophageal reflux disease without esophagitis; F17.200 Nicotine dependence, unspecified, uncomplicated; E66.9 Obesity, unspecified; Z68.31 Body mass index [BMI] 31.0-31.9, adult; R53.81 Other malaise; Z28.21 Immunization not carried out because of patient refusal; Z88.5 Allergy status to narcotic agent; Z88.8 Allergy status to other drugs, medicaments and biological substances
CPT/HCPCS: 36415; 71046; 71260; 80048; 80053; 80061; 80307; 81001; 82103; 82550; 82553; 82785; 83735; 83880; 84484; 85025; 85379; 85610; 85730; 87040; 87086; 93005; 94640; 99284; G0378; J0456; J0696; J1885; J2405; J2920; J2930; J7030; Q9967

== ENCOUNTER → 2018-06-15 | Outpatient (CLI) | payer MEDICARE ==
[~2018-06-15] MED LIST changes: +DIAZEPAM10 MG PO; +HYDROCODON-ACE1 EAC9 PO; +PREDNISONE10 MG PO; +PROAIR HFA INH8.5 GM INH; +SPIRIVA18 MCG INH; +ZOLPIDEM TARTRA10 MG PO
--- NOTE | 2018-06-15 10:33 | Diagnostic Imaging Report ---
MRI SPINE LUMBAR WO HISTORY: Low back pain, left leg pain and left foot drop COMPARISON: MRI of the lumbar spine 01/31/2013; reports from MRI of the lumbar spine dated 08/08/14 and 03/11/2014 (images not available at time of dictation) TECHNIQUE: Sagittal T1, sagittal T2, sagittal STIR, axial T2, coronal T2, and axial proton density weighted images of the lumbar spine were obtained without contrast. DISCUSSION: Number of non-rib bearing lumbar vertebral bodies: 5. Alignment: Straightening of the lumbar lordosis. No scoliosis. Vertebrae: Approximately 2 cm round T1/T2 hyperintense lesion in the right T10 vertebral body is a benign hemangioma. Otherwise, no evidence for acute fractures, infection or neoplasm. Conus medullaris: Normal, ends at L2. Cauda equina: No masses or arachnoiditis. Posterior paraspinal muscles: Well preserved. Left-sided posterior incision signal changes are seen along the lower lumbar spine. Soft tissues: A small T2 hyperintense lesion in the right kidney may be a cyst. Postsurgical changes related to prior left posterolateral fusion from L4 to S1 are present. Previously described left-sided transpedicular screws at these levels have been removed. There is associated severe disc degeneration at L4-L5 and L5-S1. Osseous fusion is seen across the L5-S1 disc space. T12-L1: Patent canal and foramina. L1-L2: Patent canal and foramina. L2-L3: Disc bulge without significant canal or foraminal stenosis. L3-L4: Mild canal stenosis due to disc bulge and ligamentum flavum thickening is accentuated by mild posterior epidural lipomatosis. No significant foraminal stenosis. L4-L5: There is mild retrolisthesis of L4 on L5. Mild bilateral foraminal stenoses due to posterior disc osteophyte complex and facet arthrosis. No significant canal stenosis. L5-S1: Mild to moderate right and moderate to severe left foraminal stenoses due to posterior disc osteophyte complex and facet arthrosis. There is likely impingement of the exiting left L5 nerve root. No significant canal stenosis. IMPRESSION: 1. Prior left posterolateral fusion changes from L4 to S1. Previously described left-sided transpedicular screws at these levels have been removed. 2. Associated severe L4-L5 and L5-S1 disc degeneration with osseous fusion across the L5-S1 disc space. 3. Multilevel lower lumbar bilateral degenerative foraminal stenoses - moderate to severe on the left at L5-S1. 4. Mild degenerative canal stenosis at L3-L4 accentuated by mild epidural lipomatosis. Signed by: Dr. Ye Dorsey M.D. on 06/15/2018 10:30 AM
== END ==
LOC: MRI 08:35
PROVIDERS: ATTEND Family Medicine
DX: M21.372 Foot drop, left foot (principal)
CPT/HCPCS: 72148

== ENCOUNTER 2018-07-18 11:19 | Emergency (ER) | payer MEDICARE ==
[~2018-07-18] VITALS: Ht 180.3 cm; Wt 102.1 kg
[2018-07-18] MEDS ORDERED: MELOXICAM7.5 MG PO (11:32)
[2018-07-18] MEDS ORDERED: OXYCONTIN10 MG PO (11:32)
[2018-07-18] MEDS ORDERED: HYDROMORPHONE 2MG/ML 2 MG/ML ML IM ONE ×3 (12:30→16:00)
[2018-07-18 12:50] VITALS: BP 185/105
[2018-07-18] MEDS ORDERED: ONDANSETRON HCL 4 MG ORAL DISINTEGRATING TAB PO ONE (16:30)
== END 2018-07-18 12:34 | disposition home or self-care (01) ==
LOC: ER 11:19
DX: M54.5 Low back pain (principal); M54.16 Radiculopathy, lumbar region; G89.29 Other chronic pain
CPT/HCPCS: 99282; J1170; 99281

== ENCOUNTER → 2018-10-15 | Day surgery (SDC) | payer MEDICARE ==
[2018-10-13 11:22] LABS: BASOPHILS # (AUTO) 0.1 (0.0-0.1); BASOPHILS % 0.5 % (0.0-1.0); EOSINOPHILS # (AUTO) 0.2 (0.0-0.4); EOSINOPHILS % 2.1 % (0.0-6.0); HEMATOCRIT 46.6 % (38.2-49.6); HEMOGLOBIN 15.8 g/dL (14.0-18.0); LYMPHOCYTES # (AUTO) 1.8 (1.0-3.2); LYMPHOCYTES % 19.9 % (18.0-39.1); MEAN CORPUSCULAR HEMOGLOBIN 30.1 pg (28-32); MEAN CORPUSCULAR HGB CONC 33.9 g/dL (31-35); MEAN CORPUSCULAR VOLUME 88.8 fL (81-99); MONOCYTES # (AUTO) 0.6 (0.2-0.8); MONOCYTES % 6.7 % (4.4-11.3); NEUTROPHILS # (AUTO) 6.5 (2.1-6.9); NEUTROPHILS % 70.5 % (38.7-80.0); PLATELET COUNT 157 x10e3/uL (140-360); RED BLOOD COUNT 5.25 x10e6/uL (4.3-5.7); RED CELL DISTRIBUTION WIDTH 12.4 % (11.7-14.4)
[~2018-10-15] MED LIST changes: +FENTANYL CITRATE/PF 100MCG/2 ML INJ ONE; +KETAMINE HCL INJ 50 MG/ML 10 ML VIAL ONE; +MELOXICAM7.5 MG PO; +METOCLOPRAMIDE HCL 10 MG/2ML VIAL ONE; +MIDAZOLAM 2MG/1ML ORAL LIQUID ONE; +MIDAZOLAM HCL 2 MG/2 ML VIAL ONE; +MIDAZOLAM HCL 5MG/ML 2ML VIAL ONE; +OXYCONTIN10 MG PO; +PANTOPRAZOLE 40 MG 10ML VIAL ONE; +PROMETHAZINE HCL (IM) 25 MG/ML VIAL ONE; +PROPOFOL IV EMULSION 10 MG/ML 50 ML VIAL ONE; +TIZANIDINE HCL4 MG PO
[2018-10-15 17:45] VITALS: BP 136/90
--- NOTE | 2018-10-15 22:34 | Operative Report ---
DATE OF PROCEDURE: 10/15/2018 SURGEON: Amari Steve MD PROCEDURE: An EGD with biopsies. INDICATIONS FOR EGD: Marked early satiety, bloating, nausea. MEDICATIONS: The patient was done under MAC, please see anesthesiologist's note. PROCEDURE IN DETAIL: With the patient in left lateral decubitus position, flexible fiberoptic Olympus gastroscope was introduced into the esophagus under direct visualization without any difficulty. There was some patchy erythema noted in distal esophagus. Focal nodularity was noted at the GE junction that was biopsied. The scope was then advanced with ease into the stomach and mucosa overlying the antrum and the body revealed some diffuse erythema and moderate edema and biopsies were obtained, sent to stain for H pylori. Pylorus was intubated with ease and the scope was advanced all the way to the second portion of the duodenum. The scope was then withdrawn slowly and biopsies were obtained from the second portion and the duodenal bulb to rule out sprue. The scope was then withdrawn back into the stomach and retroflexed and mucosa overlying the fundus and the cardia appeared to be within normal limits. The scope was then straightened out it was subsequently withdrawn. The patient tolerated the procedure well. IMPRESSION: 1. Distal esophagitis. 2. Focal nodularity, GE junction biopsied. 3. Gastritis biopsied, biopsies sent to stain for H pylori. 4. Rule out sprue. PLAN: Follow up histology. Initiate Protonix 40 mg 1 p.o. q.a.m. a.c. and Carafate 1 g p.o. a.c. t.i.d. and q.h.s. Amari Steve MD [facility] [place] /[id number] cc: Torey Vaughan DO
== END | disposition home or self-care (01) ==
LOC: OR 13:42
PROVIDERS: ATTEND Internal Medicine Gastroenterology
DX: K29.70 Gastritis, unspecified, without bleeding (principal); K29.80 Duodenitis without bleeding; K22.70 Barrett's esophagus without dysplasia; K21.0 Gastro-esophageal reflux disease with esophagitis; K59.00 Constipation, unspecified; I10 Essential (primary) hypertension; F17.210 Nicotine dependence, cigarettes, uncomplicated; Z01.810 Encounter for preprocedural cardiovascular examination; Z01.812 Encounter for preprocedural laboratory examination; Z68.30 Body mass index [BMI] 30.0-30.9, adult
CPT/HCPCS: 36415; 43239; 85025; 88305; 88312; 93005; C9113; J2250 ×2; J2550; J2704; J2765

== ENCOUNTER 2018-11-26 15:30 | Inpatient (IN) | payer MEDICARE ==
[~2018-11-26] VITALS: Ht 180.3 cm; Wt 102.1 kg
[2018-11-26] MEDS: SODIUM CHLORIDE 0.9% 1000ML 1,000 ML IV SCH (01:25)
[~2018-11-26 15:30] MED LIST changes: -FENTANYL CITRATE/PF 100MCG/2 ML INJ ONE; -KETAMINE HCL INJ 50 MG/ML 10 ML VIAL ONE; -METOCLOPRAMIDE HCL 10 MG/2ML VIAL ONE; -MIDAZOLAM 2MG/1ML ORAL LIQUID ONE; -MIDAZOLAM HCL 2 MG/2 ML VIAL ONE; -MIDAZOLAM HCL 5MG/ML 2ML VIAL ONE; -PANTOPRAZOLE 40 MG 10ML VIAL ONE; -PROMETHAZINE HCL (IM) 25 MG/ML VIAL ONE; -PROPOFOL IV EMULSION 10 MG/ML 50 ML VIAL ONE
[2018-11-26] MEDS ORDERED: ONDANSETRON HCL INJ 2MG/ML 2ML 2 MG/ML VIAL IV STA ×2 (16:20→16:32)
[2018-11-26] MEDS ORDERED: SODIUM CHLORIDE 0.9% 1000ML 1,000 ML IV SCH ×2 (16:30→18:29)
[2018-11-26] MEDS ORDERED: MORPHINE SULFATE INJ 4 MG/ML INJ 1ML IV PRN (16:30)
[2018-11-26 16:32] LABS: BASOPHILS % 0.3 % (0.0-1.0); EOSINOPHILS # (AUTO) 0.1 (0.0-0.4); EOSINOPHILS % 0.5 % (0.0-6.0); HEMATOCRIT 44.7 % (38.2-49.6); HEMOGLOBIN 15.9 g/dL (14.0-18.0); LYMPHOCYTES # (AUTO) 1.4 (1.0-3.2); LYMPHOCYTES % 14.5 % (18.0-39.1); MEAN CORPUSCULAR HEMOGLOBIN 31.2 pg (28-32); MEAN CORPUSCULAR HGB CONC 35.6 g/dL (31-35); MEAN CORPUSCULAR VOLUME 87.6 fL (81-99); MONOCYTES # (AUTO) 0.5 (0.2-0.8); MONOCYTES % 5.2 % (4.4-11.3); NEUTROPHILS # (AUTO) 7.8 (2.1-6.9); NEUTROPHILS % 79.1 % (38.7-80.0); PLATELET COUNT 150 x10e3/uL (140-360); RED CELL DISTRIBUTION WIDTH 13.2 % (11.7-14.4)
[2018-11-26] MEDS ORDERED: KETOROLAC TROMETHAMINE 30 MG/ML VIAL IV STA (16:32)
[2018-11-26] MEDS ORDERED: KETOROLAC TROMETHAMINE 30 MG/ML VIAL ONE (16:33)
[2018-11-26 16:53] LABS: ALANINE AMINOTRANSFERASE 52 IU/L (0-55); ALBUMIN 4.1 g/dL (3.5-5.0); ALBUMIN/GLOBULIN RATIO 1.3 (0.8-2.0); ALKALINE PHOSPHATASE 101 IU/L (40-150); ANION GAP 19.3 mmol/L (8-16); BLOOD UREA NITROGEN 19 mg/dL (7-26); BUN/CREATININE RATIO 18 (6-25); CALCIUM 9.7 mg/dL (8.4-10.2); CARBON DIOXIDE 22 mmol/L (22-29); CHLORIDE 103 mmol/L (98-107); CREATININE, SERUM 1.07 mg/dL (0.72-1.25); EST GLOMERULAR FILTRATION RATE > 60 ML/MIN (60-); GLUCOSE 105 mg/dL (74-118); POTASSIUM 4.3 mmol/L (3.5-5.1); SODIUM 140 mmol/L (136-145)
[2018-11-26 17:46] LABS: AMPHETAMINES SCREEN,URINE NEGATIVE (NEGATIVE); BENZODIAZEPINES SCREEN,URINE POSITIVE (NEGATIVE); BILIRUBIN,URINE SMALL (NEGATIVE); CLARITY,URINE SL CLOUDY (CLEAR); COLOR,URINE STRAW (YELLOW); KETONES,URINE 1+ (NEGATIVE); LEUKOCYTE ESTERASE ,URINE NEGATIVE (NEGATIVE); NITRITE,URINE NEGATIVE (NEGATIVE); PHENCYCLIDINE SCREEN,URINE NEGATIVE (NEGATIVE); PROTEIN,URINE DIPSTICK 1+ (NEGATIVE); URINE UROBILINOGEN 0.2 mg/dL (0.2 - 1)
[2018-11-26 17:48] LABS: AMYLASE 608 U/L (25-125)
[2018-11-26 17:55] LABS: EPITHELIAL CELLS,URINE MODERATE /LPF
--- NOTE | 2018-11-26 18:02 | Diagnostic Imaging Report ---
EXAM: CT Abdomen and Pelvis WITHOUT contrast INDICATION: ^left flank pain ^[id number] ^1707 ^Y COMPARISON: CT abdomen and pelvis 08/10/2017 TECHNIQUE: Abdomen and pelvis were scanned utilizing a multidetector helical scanner from the lung base to the pubic symphysis without administration of IV contrast. Absence of intravenous contrast decreases sensitivity for detection of focal lesions and vascular pathology. Coronal and sagittal reformations were obtained. Stone protocol is performed. IV CONTRAST: None. ORAL CONTRAST: Water RADIATION DOSE: Total DLP: 781.7 mGy*cm Estimated effective dose: (DLP x 0.015 x size factor) mSv COMPLICATIONS: None FINDINGS: LINES and TUBES: None. LOWER THORAX: Unremarkable HEPATOBILIARY: No focal hepatic lesions. No biliary ductal dilation. GALLBLADDER: Cholecystectomy. SPLEEN: No splenomegaly. PANCREAS: Large amount of fat stranding surrounding the distal body and tail consistent with acute pancreatitis. Small amount of low-attenuation fluid adjacent to the pancreatic tail and the spleen. No pancreatic necrosis or pseudocyst. No masses on limited evaluation. ADRENALS: No adrenal nodules KIDNEYS/URETERS: No hydronephrosis. No cystic or solid mass lesions. Unchanged nonobstructing 4 mm calcified stone in the inferior pole of the right kidney on coronary image 74. New 2 and 1 mm calcified stone in the inferior pole of the left kidney on image 74 and 73. No calcified stones in the ureters. GI TRACT: No abnormal distention, wall thickening, or evidence of bowel obstruction. Scattered diverticulosis throughout the colon without diverticulitis, unchanged. Appendectomy. PELVIC ORGANS/BLADDER: The urinary bladder is partially collapsed. Prostate calcifications, unchanged. LYMPH NODES: No lymphadenopathy. VESSELS: Unremarkable. PERITONEUM / RETROPERITONEUM: No free air. Small amount of low-attenuation fluid adjacent to the pancreatic tail and the spleen. BONES: Severe degenerative change at L5-S1 with cortical destruction of L5 and mild protrusion of L5 into the spinal canal is unchanged when compared to 08/10/2017. SOFT TISSUES: Unremarkable. IMPRESSION: 1. CT findings consistent with acute noncomplicated pancreatitis. Follow-up after treatment. 2. Diverticulosis throughout the colon, unchanged. 3. Nonobstructing bilateral nephrolithiasis, unchanged on the right and new on the left. Signed by: Dr. Jesenia Reyes M.D. on 11/26/2018 5:58 PM
[2018-11-26 18:10] LABS: LIPASE 2138 U/L (8-78)
[2018-11-26] MEDS ORDERED: HYDROMORPHONE 1MG/1ML INJ IV ONE (18:15)
[2018-11-26] MEDS ORDERED: SODIUM CHLORIDE 0.9% 1000ML 1,000 ML IV ONE (18:15)
[2018-11-26] MEDS ORDERED: HYDROMORPHONE 1MG/1ML INJ ONE (18:23)
--- NOTE | 2018-11-26 18:29 | NUR ---
PT BEING ADMITTED FOR PANCREATITIS. PT AWARE OF PLAN OF CARE.
[2018-11-26] MEDS ORDERED: HYDROMORPHONE 1MG/1ML INJ IV PRN ×2 (18:30→21:00)
[2018-11-26] MEDS ORDERED: HYDROMORPHONE 2MG/ML 2 MG/ML ML IV PRN (18:30)
--- NOTE | 2018-11-26 18:33 | NUR ---
pt admits to drinking a half gallon of rain beam over last couple of days.
[2018-11-26] MEDS ORDERED: ATORVASTATIN CA10 MG PO (19:34)
[2018-11-26] MEDS ORDERED: SUCRALFATE1 GM PO (19:34)
[2018-11-26] MEDS ORDERED: PANTOPRAZOLE SO40 MG PO (19:34)
--- NOTE | 2018-11-26 19:59 | NUR ---
Pt arrived to the unit via wheelchair. Pt alert and oriented x3. Pt c/o abdominal pain and states that dilaudid given in ER worked but now has come back again. Pt asking to increase dose of Dilaudid from 1mg to 2mg IV. Pt ambulatory with standby assist prn. Pt on IVF. Call back within reach.
[2018-11-26 20:00] VITALS: BP 160/91
--- NOTE | 2018-11-26 21:05 | NUR ---
Called Dr. Belle and informed about pt c/o nausea and pain and wished to increase dose of Dilaudid. MD aware and re-ordered home meds, increase dilaudid to 2mg IV Q3hr prn, Zofran 4mg IV Q4hr prn (nausea), IVF rate of 80ml/hr.
[2018-11-26] MEDS ORDERED: NON-FORMULARY MEDICATION (Zolpidem Tartrate 10 MG) PO SCH (21:10)
[2018-11-26] MEDS ORDERED: NEBIVOLOL 10 MG TAB PO SCH (21:10)
[2018-11-26] MEDS ORDERED: NON-FORMULARY MEDICATION (Diazepam 10 MG) PO PRN (21:15)
[2018-11-26] MEDS: HYDROMORPHONE 2MG/ML 2 MG/ML ML IV PRN (21:31)
[2018-11-26] MEDS: ONDANSETRON HCL INJ 2MG/ML 2ML 2 MG/ML VIAL IV PRN (21:31)
[2018-11-26] MEDS: ATORVASTATIN 10 MG TAB PO SCH (21:42)
[2018-11-26] MEDS: ZOLPIDEM TARTRATE 10 MG TAB PO SCH (21:42)
[2018-11-26 22:30] VITALS: BP 160/91
[2018-11-27] VITALS (9 sets, daily range): BP systolic 96–167; BP diastolic 60–89
[2018-11-27] MEDS: DEXTROSE 5%/LACTATED RINGERS 1,000 ML IV SCH (00:12)
[2018-11-27] MEDS: HYDROMORPHONE 2MG/ML 2 MG/ML ML IV PRN ×8 (00:35→22:08)
[2018-11-27] MEDS: ONDANSETRON HCL INJ 2MG/ML 2ML 2 MG/ML VIAL IV PRN ×4 (01:49→22:07)
[2018-11-27 06:37] LABS: BASOPHILS % 0.2 % (0.0-1.0); EOSINOPHILS % 0.1 % (0.0-6.0); HEMATOCRIT 44.6 % (38.2-49.6); LYMPHOCYTES # (AUTO) 0.7 (1.0-3.2); LYMPHOCYTES % 6.7 % (18.0-39.1); MEAN CORPUSCULAR HEMOGLOBIN 30.6 pg (28-32); MEAN CORPUSCULAR HGB CONC 33.6 g/dL (31-35); MONOCYTES # (AUTO) 0.5 (0.2-0.8); MONOCYTES % 4.3 % (4.4-11.3); NEUTROPHILS # (AUTO) 9.8 (2.1-6.9); NEUTROPHILS % 88.4 % (38.7-80.0); PLATELET COUNT 124 x10e3/uL (140-360); RED CELL DISTRIBUTION WIDTH 13.9 % (11.7-14.4)
--- NOTE | 2018-11-27 06:52 | NUR ---
RECEIVED PATIENT RESTING IN BED. NO ACUTE DISTRESS NOTED. NO S/S OF PAIN NOTED AT THIS TIME. CALL LIGHT WITHIN REACH. BED IN THE LOWEST POSITION.
[2018-11-27 06:59] LABS: ALANINE AMINOTRANSFERASE 49 IU/L (0-55); ALBUMIN 3.6 g/dL (3.5-5.0); ALBUMIN/GLOBULIN RATIO 1.2 (0.8-2.0); ALKALINE PHOSPHATASE 116 IU/L (40-150); ANION GAP 15.4 mmol/L (8-16); BLOOD UREA NITROGEN 15 mg/dL (7-26); BUN/CREATININE RATIO 16 (6-25); CALCIUM 8.2 mg/dL (8.4-10.2); CARBON DIOXIDE 21 mmol/L (22-29); CHLORIDE 105 mmol/L (98-107); CREATININE, SERUM 0.96 mg/dL (0.72-1.25); EST GLOMERULAR FILTRATION RATE > 60 ML/MIN (60-); GLUCOSE 102 mg/dL (74-118); POTASSIUM 4.4 mmol/L (3.5-5.1); SODIUM 137 mmol/L (136-145)
[2018-11-27 07:12] LABS: AMYLASE 458 U/L (25-125)
[2018-11-27] MEDS: SUCRALFATE 1 GM TAB PO SCH ×4 (07:29→22:07)
[2018-11-27 07:34] LABS: LIPASE 2159 U/L (8-78)
[2018-11-27 08:03] LABS: BAND NEUTROPHILS % (MANUAL) 5 %; LYMPHOCYTES % (MANUAL) 9 % (19-48); MONOCYTES % (MANUAL) 1 % (3.4-9.0); NEUTROPHILS % (MANUAL) 84 % (40-74); PLATELET ESTIMATE SLIGHTLY DECREASED; PLATELET MORPHOLOGY COMMENT NORMAL; RBC MORPHOLOGY COMMENT NORMAL
[2018-11-27] MEDS ORDERED: PANTOPRAZOLE 40 MG 10ML VIAL IV SCH (09:00)
[2018-11-27] MEDS: TIZANIDINE HCL 4 MG TAB PO SCH (09:03)
[2018-11-27] MEDS: PANTOPRAZOLE SOD 40 MG TABEC PO SCH (09:03)
[2018-11-27] MEDS: SODIUM CHLORIDE 0.9% 1000ML 1,000 ML IV SCH (13:12)
--- NOTE | 2018-11-27 13:52 | NUR ---
Nutrition Screen Note RD Recommendation for Physician: Advance diet when medically feasible Plan of Care: RD following, monitoring for tolerance and adequacy Nutrition reason for involvement: Nutrition Risk Trigger - MST Primary Diagnose(s): Acute pancreatitis PMH: HTN, hyperlipidemia, cholecystectomy, chronic back pain, chronic constipation Ht:72 in Wt:225lb BMI:31.4 kg/m2 IBW:172lb +/-10% RD Assessment: (11/27/2018) Chart reviewed. Labs and meds reviewed. Pt is experiencing some nausea and constipation. 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 No wt changes. No known food allergies Current Diet: NPO Malnutrition Evaluation (11/27/2018) The patient does not meet criteria for a specified degree of malnutrition at this time. Will re-evaluate at follow-up as appropriate. Diet Education Needs Assessment: Diet education not indicated. Nutrition Care Level: Low Signed: Miles Uribe RD, LD, [facility]
[2018-11-27] MEDS ORDERED: DEXTROSE 5%/0.9% SOD CHL 1,000 ML IV SCH (15:30)
[2018-11-27 15:58] LABS: CHOL/HDL RATIO 2.5 (3.9-4.7)
--- NOTE | 2018-11-27 19:37 | NUR ---
REPORT GIVEN TO ONCOMING NURSE, WALKING ROUNDS DONE. PATIENT IS IN STABLE CONDITION. NO ACUTE DISTRESS NOTED AT THIS TIME. CALL LIGHT WITHIN REACH. BED IN THE LOWEST POSITION.
--- NOTE | 2018-11-27 19:51 | History and Physical ---
HISTORY OF PRESENT ILLNESS: A 58 years old male with past medical history positive for chronic pain syndrome, alcohol abuse, hypertension, hyperlipidemia, came here with abdominal pain. He was found to have pancreatitis. REVIEW OF SYSTEMS: CARDIOVASCULAR: No chest pain or palpitation. RESPIRATORY: No shortness of breath. No cough. GASTROINTESTINAL: Nausea and vomiting. Abdominal pain radiated to the back. No blood in the stool. No black stools. GENITOURINARY: No frequency or dysuria. ALLERGIES: NOT ALLERGIC TO ANY MEDICATION. SOCIAL HISTORY: He drinks alcohol. He does smoke. PHYSICAL EXAMINATION: VITAL SIGNS: Blood pressure 96/60, temperature 95.4, heart rate 91 per minute, respiratory rate 18 per minute, O2 saturation 95%. HEART: Showed regular rhythm. Normal S1, S2 sound. LUNGS: Clear bilaterally. ABDOMEN: Soft, tender in the mid periumbilical area. EXTREMITIES: Show no evidence of cyanosis or hematoma. CT of the abdomen showed acute pancreatitis. LABORATORY DATA: On BMP; sodium 137, potassium 4.4, chloride 105. CO2 of 21, BUN 15, creatinine 0.86, glucose of 102. On CBC, white blood count 48307, hemoglobin 15.0, hematocrit 44.6, platelet count 124,000. AST 47, ALT 49, total bilirubin 1.2, alkaline phosphatase 116, lipase 2159. IMPRESSION: 1. Acute alcoholic pancreatitis. 2. Chronic back pain. 3. Hypertension. 4. Hyperlipidemia. 5. Obesity. PLAN OF TREATMENT: Continue n.p.o. Continue D5 normal saline at 80 mL an hour, Lipitor 10 mg daily, Protonix 40 mg IV daily, Carafate 1 g before meals and at bedtime, Bystolic 20 mg daily, [place] 1 tablet q.6 hours as needed for moderate pain, Dilaudid 2 mg IV q.3 hours as needed for severe pain. Zanaflex 4 mg daily, Ambien 10 mg at nighttime, diazepam 10 mg daily, Zofran 4 mg IV q.4 hours as needed. Continue n.p.o. status. We are going to consult Dr. Amari Steve for Gastroenterology. Continue monitoring lipase every day and CMP every night. MD REBECCA Cutler/MODL /[id number]
[2018-11-27] MEDS: CHLORDIAZEPOXIDE HCL 25 MG CAP PO PRN (19:57)
[2018-11-27] MEDS: HYDROCODONE/APAP 10MG-325MG TAB PO PRN (20:26)
--- NOTE | 2018-11-27 20:27 | NUR ---
PATIENT C/O PAIN TO THE ABDOMEN WITH PAIN SCORE #6, MEDICATED WITH NORCO 1TAB ORDERED. BED ALARM ON, CALL LIGHT WITHIN EASY REACH, ICE-CHIP PROVIDED.
[2018-11-27] MEDS: ZOLPIDEM TARTRATE 10 MG TAB PO SCH (22:07)
[2018-11-27] MEDS: ATORVASTATIN 10 MG TAB PO SCH (22:07)
[2018-11-27] MEDS: NEBIVOLOL 10 MG TAB PO SCH (22:07)
--- NOTE | 2018-11-27 22:08 | NUR ---
PATIENT C/O NAUSEA AND ABDOMINAL PAIN, MEDICATED WITH DILAUDID AND ZOFRAN ORDERED. ASSISTED WITH ADLS, CALL LIGHT WITHIN, INSTRUCTED TO CALL FOR ASSISTANCE NEEDED.
[2018-11-28] VITALS (9 sets, daily range): BP systolic 94–150; BP diastolic 62–81
--- NOTE | 2018-11-28 00:39 | NUR ---
DR MARTINEZ SAW THE PATIENT, PLAN IS TO INCREASE THE IV FLUID RATE TO 250ML/HR AND PROVIDE INCENTIVE SPIROMETRY FOR FREQUENT USE.
[2018-11-28] MEDS: HYDROMORPHONE 2MG/ML 2 MG/ML ML IV PRN ×8 (01:12→22:27)
--- NOTE | 2018-11-28 01:12 | NUR ---
PATIENT SITTING AT THE SIDE OF THE BED, HE C/O SEVERE PAIN TO THE ABDOMEN. MEDICATED WITH DILAUDID ORDERED, CALL LIGHT WITHIN EASY REACH, HE'S INSTRUCTED TO CALL FOR ASSISTANCE NEEDED. WILL MONITOR CLOSELY.
--- NOTE | 2018-11-28 02:07 | NUR ---
PATIENT IS SOUNDLY ASLEEP, NO RESPIRATORY DISTRESS OBSERVED. BED ALARM ON, CALL LIGHT WITHIN EASY REACH.
[2018-11-28] MEDS: DEXTROSE 5%/LACTATED RINGERS 1,000 ML IV SCH ×3 (04:10→16:28)
--- NOTE | 2018-11-28 04:14 | NUR ---
PATIENT C/O ABDOMINAL PAIN, MEDICATED WITH DILAUDID ORDERED. EXTRA PILLOWS PROVIDED FOR COMFORT, CALL LIGHT WITHIN EASY REACH, PATIENT INSTRUCTED TO CALL FOR ASSISTANCE UPON GETTING OUT OF THE BED.
[2018-11-28] MEDS: HYDROCODONE/APAP 10MG-325MG TAB PO PRN (04:33)
--- NOTE | 2018-11-28 04:34 | NUR ---
PATIENT HAS A TEMPERATURE OF 102.9 AND HE STILL C/O ABDOMINAL PAIN. MEDICATED WITH NORCO 1TAB ORDERED, SEVERAL LUNG EXERCISES PERFORMED USING THE INCENTIVE SPIROMETRY.
[2018-11-28 06:08] LABS: BASOPHILS % 0.2 % (0.0-1.0); EOSINOPHILS % 0.1 % (0.0-6.0); HEMATOCRIT 38.1 % (38.2-49.6); HEMOGLOBIN 12.6 g/dL (14.0-18.0); LYMPHOCYTES # (AUTO) 0.6 (1.0-3.2); LYMPHOCYTES % 4.8 % (18.0-39.1); MEAN CORPUSCULAR HEMOGLOBIN 30.7 pg (28-32); MEAN CORPUSCULAR HGB CONC 33.1 g/dL (31-35); MEAN CORPUSCULAR VOLUME 92.7 fL (81-99); MONOCYTES # (AUTO) 0.9 (0.2-0.8); NEUTROPHILS # (AUTO) 10.8 (2.1-6.9); NEUTROPHILS % 86.4 % (38.7-80.0); PLATELET COUNT 98 x10e3/uL (140-360); RED BLOOD COUNT 4.11 x10e6/uL (4.3-5.7); RED CELL DISTRIBUTION WIDTH 13.9 % (11.7-14.4)
--- NOTE | 2018-11-28 06:54 | NUR ---
RECEIVED PATIENT RESTING IN BED. RESPIRATIONS EVEN AND UNLABORED, NO ACUTE DISTRESS NOTED. CALL LIGHT WITHIN REACH. BED IN THE LOWEST POSITION.
[2018-11-28 07:00] LABS: BAND NEUTROPHILS % (MANUAL) 9 %; LYMPHOCYTES % (MANUAL) 5 % (19-48); MONOCYTES % (MANUAL) 7 % (3.4-9.0); NEUTROPHILS % (MANUAL) 79 % (40-74); PLATELET ESTIMATE SLIGHTLY DECREASED; PLATELET MORPHOLOGY COMMENT NORMAL; RBC MORPHOLOGY COMMENT NORMAL
--- NOTE | 2018-11-28 07:47 | NUR ---
PAGED DR. ESPINO TO NOTIFY OF PATIENT'S TEMPERATURE OF 101.1. NEW ORDERS RECEIVED.
[2018-11-28] MEDS: TIZANIDINE HCL 4 MG TAB PO SCH (08:10)
[2018-11-28] MEDS: SUCRALFATE 1 GM TAB PO SCH ×4 (08:10→20:27)
[2018-11-28] MEDS: PANTOPRAZOLE SOD 40 MG TABEC PO SCH (08:10)
[2018-11-28] MEDS: ACETAMINOPHEN 325 MG TAB PO PRN (08:10)
[2018-11-28] MEDS ORDERED: CEFTRIAXONE SOD 1 GM VIAL IV SCH (09:00)
[2018-11-28 09:07] LABS: ALANINE AMINOTRANSFERASE 27 IU/L (0-55); ALBUMIN 2.6 g/dL (3.5-5.0); ALBUMIN/GLOBULIN RATIO 0.8 (0.8-2.0); ALKALINE PHOSPHATASE 104 IU/L (40-150); ANION GAP 12.1 mmol/L (8-16); BLOOD UREA NITROGEN 11 mg/dL (7-26); BUN/CREATININE RATIO 10 (6-25); CALCIUM 7.8 mg/dL (8.4-10.2); CARBON DIOXIDE 24 mmol/L (22-29); CHLORIDE 101 mmol/L (98-107); CREATININE, SERUM 1.06 mg/dL (0.72-1.25); EST GLOMERULAR FILTRATION RATE > 60 ML/MIN (60-); GLUCOSE 118 mg/dL (74-118); LIPASE 422 U/L (8-78); POTASSIUM 4.1 mmol/L (3.5-5.1); SODIUM 133 mmol/L (136-145)
[2018-11-28] MEDS: CEFTRIAXONE SOD 2 GM/NS 100 ML 100 ML IV SCH (09:50)
[2018-11-28] MEDS: ONDANSETRON HCL INJ 2MG/ML 2ML 2 MG/ML VIAL IV PRN ×4 (10:18→22:27)
--- NOTE | 2018-11-28 10:34 | Diagnostic Imaging Report ---
Examination: Single AP view of the chest. COMPARISON: CT abdomen and pelvis 11/26/2018 INDICATION: Shortness of breath IMPRESSION: 1. Lines and Tubes: None 2. Lungs are well-inflated. Partial obscuration of the left hemidiaphragm, suggestive of small pleural effusion, however, posterior eventration of the left hemidiaphragm is noted on CT dated 11/26/2018. Chest PA and lateral would be helpful for further evaluation. 3. Cardiomediastinal silhouette is normal. Pulmonary vasculature is normal. 4. No acute bony abnormalities. Signed by: Dr. Ariel Savage M.D. on 11/28/2018 10:31 AM
--- NOTE | 2018-11-28 14:03 | Progress Note ---
DATE: 11/28/2018 Internal Medicine Progress Note SUBJECTIVE: The patient is sleeping today. He has been running fever. PHYSICAL EXAMINATION: VITAL SIGNS: Blood pressure 144/75, temperature 101.1, heart rate 105 per minute, respiratory rate 20 per minute, and oxygen saturation 94%. HEART: Regular rhythm. Normal S1, S2 sounds. LUNGS: Clear bilaterally. ABDOMEN: Soft. EXTREMITIES: Show no evidence of cyanosis or hematoma. MICROBIOLOGY: Blood culture and urine culture have been sent. IMAGING STUDIES: Chest x-ray show some herniated hemidiaphragm on the left side, but no evidence of pneumonia. LABORATORY DATA: On the BMP; sodium 133, potassium 4.1, chloride 101, CO2 24, BUN 11, creatinine 1.86, glucose 118. On the CBC, white count 12,500, hemoglobin 12.6, hematocrit 38.1, platelet count 98,000. AST 20, ALT 27, total bilirubin 1.8, alkaline phosphatase 104. IMPRESSION: 1. Acute pancreatitis. 2. Fever, most likely secondary to pancreatitis. 3. Chronic back pain syndrome. 4. Hypertension. 5. Obesity. 6. Hyperlipidemia. PLAN OF TREATMENT: 1. He has been started empirically on Rocephin 2 g IV daily. 2. IV fluids have been decreased to 120 mL an hour because the patient is complaining of shortness of breath. 3. He is on Lipitor 10 mg daily. 4. Protonix 40 mg daily. 5. Zofran 4 mg IV q.4 hours as needed. 6. Dilaudid 2 mg IV every 3 hours as needed. 7. Carafate 1 g before meals and at bedtime. 8. Bystolic 20 mg daily. 9. Ambien 10 mg at night p.r.n. for sleep. 10. [place] 1 tablet q.6 hours as needed for moderate pain. 11. Librium 25 mg q.6 hours as needed because the patient was having alcohol withdrawal, so he is a heavy alcohol drinker. 12. We are going to hold on the diazepam. 13. Continue on Zanaflex 4 mg daily. 14. Tylenol 650 mg q.[address] Sanchez has been consulted from Infectious Disease point of view to help on the workup of the fever. Dr. Amari Steve has been seeing him from the Gastroenterology point of view. We are going to continue monitoring CBC, CMP, and lipase levels. Blood culture, urine culture have been sent and reports are pending. Urinalysis negative. Chest x-ray showed no pneumonia. MD REBECCA Cutler/WENDY /[id number]
--- NOTE | 2018-11-28 14:36 | NUR ---
RECEIVED DC ORDER FROM MD. PATIENT IS IN STABLE CONDITION. IS AT BEDSIDE. IV LINE TO LEFT FOREARM DCD WITH TIP INTACT, PRESSURE APPLIED TO SITE, NO BLEEDING NOTED. DISCHARGE TEACHING PROVIDED TO PATIENT AND , THEY BOTH VERBALIZED UNDERSTANDING. DISCHARGE FOLDER WITH PRESCRIPTIONS AND PERSONAL ITEMS ON HAND. PATIENT ACCOMPANIED TO PRIVATE AUTO BY STAFF, REFUSED WHEELCHAIR. Addendum: 11/28/18 at 1451 by MARY JO BENNETT RN WRONG PATIENT.
--- NOTE | 2018-11-28 19:06 | NUR ---
REPORT GIVEN TO ONCOMING NURSE, PATIENT IS RESTING IN BED. NO ACUTE DISTRESS NOTED. NO S/S OF PAIN NOTED. CALL LIGHT WITHIN REACH. BED IN THE LOWEST POSITION.
--- NOTE | 2018-11-28 19:18 | NUR ---
PT IS RESTING IN BED. RESPIRATION IS EVEN AND UNLABORED, NO DISTRESS NOTED. BED IN THE LOWEST POSITION, LOCKED, AND CALL LIGHT WITHIN REACH. WILL CONTINUE TO MONITOR.
[2018-11-28] MEDS: ZOLPIDEM TARTRATE 10 MG TAB PO SCH (20:26)
[2018-11-28] MEDS: NEBIVOLOL 10 MG TAB PO SCH (20:27)
[2018-11-28] MEDS: ATORVASTATIN 10 MG TAB PO SCH (20:27)
[2018-11-29] VITALS (7 sets, daily range): BP systolic 101–149; BP diastolic 64–93
[2018-11-29] MEDS: DEXTROSE 5%/LACTATED RINGERS 1,000 ML IV SCH ×3 (00:56→19:04)
[2018-11-29] MEDS: ACETAMINOPHEN 325 MG TAB PO PRN (00:57)
[2018-11-29] MEDS: ONDANSETRON HCL INJ 2MG/ML 2ML 2 MG/ML VIAL IV PRN ×7 (01:27→20:13)
[2018-11-29] MEDS: HYDROMORPHONE 2MG/ML 2 MG/ML ML IV PRN ×8 (01:27→23:21)
[2018-11-29 05:56] LABS: BASOPHILS % 0.2 % (0.0-1.0); EOSINOPHILS % 0.2 % (0.0-6.0); HEMATOCRIT 34.3 % (38.2-49.6); HEMOGLOBIN 11.3 g/dL (14.0-18.0); LYMPHOCYTES # (AUTO) 0.7 (1.0-3.2); LYMPHOCYTES % 6.1 % (18.0-39.1); MEAN CORPUSCULAR HEMOGLOBIN 30.8 pg (28-32); MEAN CORPUSCULAR HGB CONC 32.9 g/dL (31-35); MEAN CORPUSCULAR VOLUME 93.5 fL (81-99); MONOCYTES # (AUTO) 1.2 (0.2-0.8); MONOCYTES % 9.6 % (4.4-11.3); NEUTROPHILS # (AUTO) 10.1 (2.1-6.9); NEUTROPHILS % 83.6 % (38.7-80.0); PLATELET COUNT 107 x10e3/uL (140-360); RED BLOOD COUNT 3.67 x10e6/uL (4.3-5.7); RED CELL DISTRIBUTION WIDTH 13.7 % (11.7-14.4)
--- NOTE | 2018-11-29 07:30 | NUR ---
PATIENT SITTING UP IN BED WATCHING TV. C/O ABDOMINAL PAIN, MEDICATED ORDERED. BED IN LOWER POSITION AND LOCKED. CALL LIGHT AT REACH.
[2018-11-29] MEDS: SUCRALFATE 1 GM TAB PO SCH ×4 (07:38→20:13)
[2018-11-29 07:49] LABS: BAND NEUTROPHILS % (MANUAL) 3 %; LYMPHOCYTES % (MANUAL) 9 % (19-48); MONOCYTES % (MANUAL) 7 % (3.4-9.0); NEUTROPHILS % (MANUAL) 80 % (40-74)
[2018-11-29 07:53] LABS: PLATELET ESTIMATE SLIGHTLY DECREASED; PLATELET MORPHOLOGY COMMENT NORMAL; RBC MORPHOLOGY COMMENT NORMAL
[2018-11-29] MEDS: CEFTRIAXONE SOD 2 GM/NS 100 ML 100 ML IV SCH (09:20)
[2018-11-29] MEDS: TIZANIDINE HCL 4 MG TAB PO SCH (09:20)
[2018-11-29] MEDS: PANTOPRAZOLE SOD 40 MG TABEC PO SCH (09:20)
--- NOTE | 2018-11-29 13:45 | Progress Note ---
DATE: 11/29/2018 SUBJECTIVE: Mr. Lees is feeling slightly better. Still abdominal pain. REVIEW OF SYSTEMS: HEENT: Negative. PULMONARY: Negative. CARDIAC: Negative. Review of systems today, still having some abdominal pain, still feeling . PHYSICAL EXAMINATION: GENERAL: He is currently alert, oriented, does not seem to be in acute distress. VITAL SIGNS: Stable, currently afebrile. HEENT: He is not icteric. NECK: Supple. CHEST: Clear. HEART: S1, S2. No murmur. ABDOMEN: Soft. Bowel sounds present. No tenderness. EXTREMITIES: No edema. SKIN: There is no rash. IMPRESSION: Pancreatitis. Continue with IV fluids. Continue supportive care. We will follow. MD THONY Santana/WENDY /[id number]
--- NOTE | 2018-11-29 15:47 | NUR ---
PATIENT AMBULATED TO THE RESTROOM AND BACK TO BED. IV FLUID INFUSING ORDERED. BED IN LOWER POSITION, CALL LIGHT AT REACH.
--- NOTE | 2018-11-29 17:20 | Consultation ---
DATE OF CONSULTATION: 11/29/2018 HISTORY OF PRESENT ILLNESS: Mr. Lees is a 58-year-old white male, history of obesity, history of alcoholism, history of smoking, hypertension, hyperlipidemia, comes in with abdominal pain severe epigastric area. The patient comes in and he was diagnosed with pancreatitis. I was asked to see him. The patient denies any fever or chills. He is having severe abdominal pain. This is the first time he got this. REVIEW OF SYSTEMS: HEENT: Negative. PULMONARY: Negative. CARDIAC: Negative. : Negative. GI: As above. All other symptoms beside abdominal pain, denies. PAST MEDICAL HISTORY: He denies. PAST SURGICAL HISTORY: Denies. ALLERGIES: NKA. SOCIAL HISTORY: Smokes heavily, drinks heavily. LABORATORY DATA: Reviewed. His white count on admission was 9.8 is slowly coming up to 11.15. His sodium 133, potassium 4.1. Liver enzyme within normal limit. His amylase was 422. His CAT scan was reviewed. PHYSICAL EXAMINATION: GENERAL: He is currently alert, oriented, does not seem to be in acute distress. VITAL SIGNS: Stable currently, afebrile. HEENT: Not icteric. NECK: Supple. CHEST: Clear. HEART: S1, S2. No murmur. ABDOMEN: Soft. Diffuse discomfort. EXTREMITIES: No edema. SKIN: There is no rash. IMPRESSION: 1. Pancreatitis, recommendation strict n.p.o. 2. IV fluids. 3. No need for antibiotic. 4. Discussed with the patient that he must quit drinking and smoking. He agreed. He said that he is going to. 5. Hypercholesteremia. 6. Hypertension. We will follow with you. Further recommendations depending on his clinical progress. MD THONY Santana/MODL /[id number]
--- NOTE | 2018-11-29 20:00 | NUR ---
Received change of shift report from AM nurse. Walking rounds completed.
[2018-11-29] MEDS: NEBIVOLOL 10 MG TAB PO SCH (20:12)
[2018-11-29] MEDS: ZOLPIDEM TARTRATE 10 MG TAB PO SCH (20:12)
[2018-11-29] MEDS: ATORVASTATIN 10 MG TAB PO SCH (20:13)
[2018-11-30] VITALS (8 sets, daily range): BP systolic 146–166; BP diastolic 85–99
--- NOTE | 2018-11-30 | NUR ---
Patient AAOx3. Requesting pain med every 2-3 hours. Asst patient to reposition on right side. Patient stated he cant tolerate.
[2018-11-30] MEDS: DEXTROSE 5%/LACTATED RINGERS 1,000 ML IV SCH ×6 (02:00→23:15)
--- NOTE | 2018-11-30 02:00 | NUR ---
Dr Steve on the floor to see patient. Orders received and completed.
--- NOTE | 2018-11-30 04:12 | NUR ---
Patient resting quitly at this time, Continue monitor.
[2018-11-30] MEDS: HYDROMORPHONE 2MG/ML 2 MG/ML ML IV PRN ×7 (05:07→23:08)
[2018-11-30] MEDS: ONDANSETRON HCL INJ 2MG/ML 2ML 2 MG/ML VIAL IV PRN ×2 (05:08→08:08)
[2018-11-30 06:24] LABS: BASOPHILS % 0.2 % (0.0-1.0); EOSINOPHILS % 0.1 % (0.0-6.0); HEMATOCRIT 33.6 % (38.2-49.6); HEMOGLOBIN 11.2 g/dL (14.0-18.0); LYMPHOCYTES # (AUTO) 0.6 (1.0-3.2); LYMPHOCYTES % 6.3 % (18.0-39.1); MEAN CORPUSCULAR HEMOGLOBIN 30.8 pg (28-32); MEAN CORPUSCULAR HGB CONC 33.3 g/dL (31-35); MEAN CORPUSCULAR VOLUME 92.3 fL (81-99); NEUTROPHILS % 82.8 % (38.7-80.0); PLATELET COUNT 117 x10e3/uL (140-360); RED BLOOD COUNT 3.64 x10e6/uL (4.3-5.7); RED CELL DISTRIBUTION WIDTH 13.3 % (11.7-14.4)
[2018-11-30 06:51] LABS: ALANINE AMINOTRANSFERASE 26 IU/L (0-55); ALBUMIN 2.4 g/dL (3.5-5.0); ALBUMIN/GLOBULIN RATIO 0.7 (0.8-2.0); ALKALINE PHOSPHATASE 127 IU/L (40-150); ANION GAP 14.4 mmol/L (8-16); BLOOD UREA NITROGEN 6 mg/dL (7-26); BUN/CREATININE RATIO 7 (6-25); CALCIUM 8.4 mg/dL (8.4-10.2); CARBON DIOXIDE 26 mmol/L (22-29); CHLORIDE 98 mmol/L (98-107); CREATININE, SERUM 0.85 mg/dL (0.72-1.25); EST GLOMERULAR FILTRATION RATE > 60 ML/MIN (60-); GLUCOSE 139 mg/dL (74-118); POTASSIUM 3.4 mmol/L (3.5-5.1); SODIUM 135 mmol/L (136-145)
--- NOTE | 2018-11-30 07:09 | NUR ---
pt alert resp even and unlabored at this time no distress noted. pt able to make needs known, call light in reach.
[2018-11-30 07:10] LABS: AMYLASE 48 U/L (25-125); LIPASE 173 U/L (8-78)
[2018-11-30] MEDS: SUCRALFATE 1 GM TAB PO SCH ×4 (07:30→20:07)
[2018-11-30] MEDS: CHLORDIAZEPOXIDE HCL 25 MG CAP PO PRN (08:08)
[2018-11-30 08:28] LABS: BAND NEUTROPHILS % (MANUAL) 11 %; LYMPHOCYTES % (MANUAL) 9 % (19-48); MONOCYTES % (MANUAL) 10 % (3.4-9.0); NEUTROPHILS % (MANUAL) 70 % (40-74)
[2018-11-30 08:29] LABS: PLATELET ESTIMATE SLIGHTLY DECREASED; PLATELET MORPHOLOGY COMMENT NORMAL; TOXIC GRANULATION SLIGHT
[2018-11-30 08:30] LABS: RBC MORPHOLOGY COMMENT NORMAL
[2018-11-30] MEDS: PANTOPRAZOLE SOD 40 MG TABEC PO SCH (09:00)
[2018-11-30] MEDS: TIZANIDINE HCL 4 MG TAB PO SCH (09:00)
--- NOTE | 2018-11-30 19:11 | NUR ---
WALKING ROUNDS PERFORMED, RECEIVED PT LAYING SEMI FOWLERS IN BED, AAOX3, RR EVEN AND NON=LABORED, PT REPORTS COUGH FOR COUPLE OF DAYS. LEFT PT LAYING SEMI FOWLERS IN BED, BED IN LOW LOCKED POSITION, SIDE RAILS UPX2, CALL LIGHT AND PHONE WITHIN REACH.
--- NOTE | 2018-11-30 19:38 | NUR ---
report given to oncoming nurse, for continued care.
[2018-11-30] MEDS: ATORVASTATIN 10 MG TAB PO SCH (20:07)
[2018-11-30] MEDS: ZOLPIDEM TARTRATE 10 MG TAB PO SCH (20:07)
[2018-11-30] MEDS: NEBIVOLOL 10 MG TAB PO SCH (20:07)
--- NOTE | 2018-11-30 23:05 | NUR ---
IV TO (L) AC NOTED TO BE LEAKING. IV DISCONTINUED. PRESSURE AND DRESSING APPLIED NEW IV STARTED TO (R) FA. BLOOD RETURN NOTED AND FLUSHES WITHOUT DIFFICULTY.
[2018-12-01] VITALS (8 sets, daily range): BP systolic 129–179; BP diastolic 58–91
[2018-12-01] MEDS: DEXTROSE 5%/LACTATED RINGERS 1,000 ML IV SCH ×5 (00:06→20:40)
[2018-12-01] MEDS: HYDROCODONE/APAP 10MG-325MG TAB PO PRN (01:13)
[2018-12-01] MEDS: HYDROMORPHONE 2MG/ML 2 MG/ML ML IV PRN ×8 (02:09→23:37)
[2018-12-01] MEDS: DIAZEPAM 5 MG TAB PO PRN (02:11)
--- NOTE | 2018-12-01 05:15 | NUR ---
SECOND IV STARTED TO (R) AC 20G FOR CT OF ABDOMEN. BLOOD RETURN NOTED, FLUSHES WITHOUT DIFFICULTY.
[2018-12-01 05:40] LABS: BASOPHILS % 0.3 % (0.0-1.0); EOSINOPHILS % 0.3 % (0.0-6.0); HEMOGLOBIN 10.8 g/dL (14.0-18.0); LYMPHOCYTES # (AUTO) 0.8 (1.0-3.2); LYMPHOCYTES % 7.2 % (18.0-39.1); MEAN CORPUSCULAR HEMOGLOBIN 30.9 pg (28-32); MEAN CORPUSCULAR HGB CONC 33.8 g/dL (31-35); MEAN CORPUSCULAR VOLUME 91.4 fL (81-99); MONOCYTES # (AUTO) 1.5 (0.2-0.8); MONOCYTES % 14.4 % (4.4-11.3); NEUTROPHILS # (AUTO) 8.1 (2.1-6.9); NEUTROPHILS % 75.9 % (38.7-80.0); PLATELET COUNT 147 x10e3/uL (140-360); RED CELL DISTRIBUTION WIDTH 13.5 % (11.7-14.4)
[2018-12-01 06:11] LABS: ALANINE AMINOTRANSFERASE 27 IU/L (0-55); ALBUMIN 2.2 g/dL (3.5-5.0); ALBUMIN/GLOBULIN RATIO 0.6 (0.8-2.0); ALKALINE PHOSPHATASE 131 IU/L (40-150); ANION GAP 13.3 mmol/L (8-16); BLOOD UREA NITROGEN < 5 mg/dL (7-26); BUN/CREATININE RATIO 6 (6-25); CALCIUM 8.5 mg/dL (8.4-10.2); CARBON DIOXIDE 28 mmol/L (22-29); CHLORIDE 100 mmol/L (98-107); CREATININE, SERUM 0.81 mg/dL (0.72-1.25); EST GLOMERULAR FILTRATION RATE > 60 ML/MIN (60-); GLUCOSE 131 mg/dL (74-118); POTASSIUM 3.3 mmol/L (3.5-5.1); SODIUM 138 mmol/L (136-145)
[2018-12-01 06:23] LABS: LYMPHOCYTES % (MANUAL) 10 % (19-48); MONOCYTES % (MANUAL) 13 % (3.4-9.0); NEUTROPHILS % (MANUAL) 76 % (40-74)
[2018-12-01 06:24] LABS: AMYLASE 41 U/L (25-125); LIPASE 174 U/L (8-78)
[2018-12-01 06:25] LABS: PLATELET ESTIMATE SLIGHTLY DECREASED; RBC MORPHOLOGY COMMENT NORMAL; TOXIC GRANULATION SLIGHT
[2018-12-01 06:26] LABS: PLATELET MORPHOLOGY COMMENT NORMAL
[2018-12-01] MEDS ORDERED: IOPAMIDOL 370 MG/ML 200 ML INFUS..BTL INJ ONE (06:34)
[2018-12-01] MEDS ORDERED: SODIUM CHLORIDE 0.9% 50ML 50 ML ONE (06:34)
--- NOTE | 2018-12-01 07:24 | NUR ---
PATIENT ASSISTED TO THE RESTROOM AND BACK TO BED. IV FLUID INFUSING ORDERED. O2 IN PLACE VIA N/C. IN BED WITH CALL LIGHT AT REACH.
[2018-12-01] MEDS: SUCRALFATE 1 GM TAB PO SCH ×4 (07:30→20:30)
--- NOTE | 2018-12-01 07:34 | Diagnostic Imaging Report ---
EXAM: CT Abdomen and Pelvis with contrast INDICATION: Unresolved abdominal pain. COMPARISON: CT abdomen and pelvis 12/01/2018. TECHNIQUE: Abdomen and pelvis were scanned utilizing a multidetector helical scanner from the lung base to the pubic symphysis after administration of IV contrast. Coronal and sagittal reformations were obtained. Routine protocol was performed. IV CONTRAST: 100 cc of Isovue 370 ORAL CONTRAST: Water RADIATION DOSE: Total DLP: 519.6 mGy*cm Estimated effective dose: (DLP x 0.015 x size factor) mSv COMPLICATIONS: None FINDINGS: LINES and TUBES: None. LOWER THORAX: Interval development of a small left and trace right pleural effusion. Patchy left lower lobe opacity, likely atelectasis. HEPATOBILIARY: No focal hepatic lesions. No biliary ductal dilation. GALLBLADDER: Cholecystectomy. SPLEEN: No splenomegaly. PANCREAS: There is increasing large amount of of fat stranding surrounding the body and tail consistent with acute pancreatitis. Increasing surrounding small amount of low-attenuation fluid. No evidence of pancreatic hypoenhancement or pseudocyst. No evidence of mass. ADRENALS: No adrenal nodules KIDNEYS/URETERS: No hydronephrosis. No cystic or solid mass lesions. Unchanged nonobstructing 4 mm calcified stone in the inferior pole of the right kidney and 2 mm and 1 mm calcified stones in the inferior pole of the left kidney, better characterized on the prior non-contrast study. No evidence of ureteral stone. GI TRACT: Partially visualized. No abnormal distention, wall thickening, or evidence of bowel obstruction. Appendectomy. LYMPH NODES: No lymphadenopathy. VESSELS: Unremarkable. PERITONEUM / RETROPERITONEUM: No free air. Small amount of low-attenuation fluid adjacent to the pancreatic tail and the spleen, increased from the prior study. BONES: Severe degenerative change at L5-S1 with cortical destruction of L5 and mild protrusion of L5 into the spinal canal is unchanged. SOFT TISSUES: Unremarkable. IMPRESSION: CT findings consistent with acute noncomplicated pancreatitis with increasing extensive inflammatory changes compared to the prior study. Follow-up after treatment. Non-obstructing bilateral renal stones. Signed by: Dr. Usha Khoury MD on 12/01/2018 7:31 AM
[2018-12-01] MEDS: ONDANSETRON HCL INJ 2MG/ML 2ML 2 MG/ML VIAL IV PRN ×5 (08:10→23:37)
[2018-12-01] MEDS: TIZANIDINE HCL 4 MG TAB PO SCH (09:06)
[2018-12-01] MEDS: PANTOPRAZOLE SOD 40 MG TABEC PO SCH (09:06)
--- NOTE | 2018-12-01 11:37 | NUR ---
PATIENT C/O ABDOMINAL PAIN, MEDICATED ORDERED. WILL CLOSELY MONITOR.
[2018-12-01] MEDS ORDERED: POTASSIUM CHLORIDE 20 MEQ TAB CR PO NR (12:00)
--- NOTE | 2018-12-01 16:07 | NUR ---
SPOKE WITH MD REGARDING ABNORMAL LAB RESULT. NEW ORDER RECEIVED AND IMPLEMENTED. IN BED WITH CALL LIGHT AT REACH.
[2018-12-01] MEDS: ACETAMINOPHEN 325 MG TAB PO PRN (16:37)
--- NOTE | 2018-12-01 18:00 | NUR ---
PATIENT NOTED WITH TEMPERATURE OF 100.5. TYLENOL GIVEN ORDERED, TEMPERATURE RECHECKED WITH THE READING OF 98.9. WILL CONTINUE TO MONITOR.
--- NOTE | 2018-12-01 19:19 | NUR ---
WALKING ROUND MADE AND REPORT GIVEN TO ON COMING NURSE.
[2018-12-01] MEDS: NEBIVOLOL 10 MG TAB PO SCH (20:30)
[2018-12-01] MEDS: ATORVASTATIN 10 MG TAB PO SCH (20:30)
[2018-12-01] MEDS: ZOLPIDEM TARTRATE 10 MG TAB PO SCH (20:30)
--- NOTE | 2018-12-01 20:35 | NUR ---
PATIENT AOX3, COMPLAINTS OF ABDOMINAL PAIN OF 10 AND MEDICATED ORDERED. IV RUNNING AT ORDERED RATE AND PATENT. CALL LIGHT WITHIN EASY REACH, CONTINUING TO MONITOR.
[2018-12-02] VITALS (8 sets, daily range): BP systolic 149–177; BP diastolic 77–94
[2018-12-02] MEDS: DEXTROSE 5%/LACTATED RINGERS 1,000 ML IV SCH ×3 (00:50→05:25)
[2018-12-02] MEDS: ACETAMINOPHEN 325 MG TAB PO PRN ×2 (01:36→20:42)
[2018-12-02] MEDS: HYDROMORPHONE 2MG/ML 2 MG/ML ML IV PRN ×7 (02:28→21:52)
[2018-12-02] MEDS: ONDANSETRON HCL INJ 2MG/ML 2ML 2 MG/ML VIAL IV PRN ×3 (02:28→15:48)
--- NOTE | 2018-12-02 03:25 | NUR ---
PATIENT IN BED, WATCHING TELEVISION, NO DISTRESS NOTED. VOICED PAIN IN ABDOMEN HAS REDUCED DOWN TO A 6. CALL LIGHT WITHIN REACH.
--- NOTE | 2018-12-02 04:45 | NUR ---
PATIENT RAN A FEVER OF 101.9, PATIENT WAS MEDICATED ORDERED. TEMPERATURE RECHECKED AND IS NOW 99.3, WILL CONTINUE TO MONITOR.
[2018-12-02 06:34] LABS: ALANINE AMINOTRANSFERASE 29 IU/L (0-55); ALBUMIN 2.2 g/dL (3.5-5.0); ALBUMIN/GLOBULIN RATIO 0.6 (0.8-2.0); ALKALINE PHOSPHATASE 132 IU/L (40-150); AMYLASE 46 U/L (25-125); ANION GAP 14.2 mmol/L (8-16); BLOOD UREA NITROGEN < 5 mg/dL (7-26); BUN/CREATININE RATIO 6 (6-25); CALCIUM 8.7 mg/dL (8.4-10.2); CARBON DIOXIDE 28 mmol/L (22-29); CHLORIDE 98 mmol/L (98-107); CREATININE, SERUM 0.77 mg/dL (0.72-1.25); EST GLOMERULAR FILTRATION RATE > 60 ML/MIN (60-); GLUCOSE 119 mg/dL (74-118); LIPASE 251 U/L (8-78); POTASSIUM 3.2 mmol/L (3.5-5.1); SODIUM 137 mmol/L (136-145)
--- NOTE | 2018-12-02 07:03 | NUR ---
Walking rounds done and report received. Patient is awake, alert, and able to make needs known. POC discussed. Patient will start on clear liquid breakfast this morning. Bed in lowest position, locked, and call painter within reach.
--- NOTE | 2018-12-02 07:25 | NUR ---
RIGHT FOREARM IV WAS OCCLUDED AND REMOVED SUCCESSFULLY. RIGHT AC IV IS STILL ACCESSIBLE, PATENT, AND INTACT.
[2018-12-02] MEDS: SUCRALFATE 1 GM TAB PO SCH ×4 (08:28→20:41)
[2018-12-02] MEDS: PANTOPRAZOLE SOD 40 MG TABEC PO SCH (08:28)
[2018-12-02] MEDS: TIZANIDINE HCL 4 MG TAB PO SCH (08:29)
[2018-12-02] MEDS ORDERED: POTASSIUM CHLORIDE 20 MEQ TAB CR PO ONE ×2 (10:00→11:30)
--- NOTE | 2018-12-02 11:35 | Diagnostic Imaging Report ---
EXAMINATION: CHEST SINGLE (PORTABLE) INDICATION: Shortness of breath COMPARISON: None FINDINGS: LINES/TUBES:None LUNGS:The lungs are moderately inflated. No focal consolidation or pulmonary edema. PLEURA:No pleural effusion or pneumothorax. MEDIASTINUM:The cardiomediastinal silhouette appears to be at the upper limits of normal for size. BONES/SOFT TISSUES:No acute osseous injury. ABDOMEN:No free air under the diaphragm. IMPRESSION: No focal pneumonia or pulmonary edema. Signed by: Ashu Rich MD on 12/02/2018 11:32 AM
[2018-12-02] MEDS: DEXTROSE 5% 1,000 ML IV SCH ×2 (11:49→21:57)
[2018-12-02] MEDS ORDERED: FUROSEMIDE INJ 10 MG/ML 4 ML VIAL IV ONE (14:30)
--- NOTE | 2018-12-02 16:41 | NUR ---
Nutrition Intervention Note RD Recommendation(s) for Physician: -Rec advancing diet as tolerated to low fat diet -If unable to advance diet within 24hr, rec to initiate PN (30% dextrose, 15% AA) @ 41.7mL/hr, providing 1000mL total volume/day, 150g dextrose, 75g AA. Total kcal including lipids of 25g/ daily 1035kcal/day. -Check BMP, Phos, Mag daily; Prealbumin, LFT and TG levels weekly -Continue with TPN per MD until diet is advanced and intake is >50% Plan of Care: RD following, monitoring for tolerance and adequacy Nutrition reason for involvement: NPO/ Clear liquid x [address] Assessment 12/02 - 58yo M, with hx of alcoholism, who was admitted for abdominal pain. Abd CT showed acute non-complicated pancreatitis with increasing extensive inflammatory changes. Pt has been NPO/ on clear liquid x 6 days. Visited pt in the room. Pt reported tolerating clear liquid diet. No complains of nausea or vomiting. Handouts on low fat diet were provided. Discussed case with DANE Bowen. Per RN, pt didnt take in any of the liquids for breakfast and lunch today. Pt has been getting Dilaudid q 3hr. Unable to determine if pt actually tolerating clear liquids. RD rec to initiate PN if unable to advance diet, in order to prevent risk of malnutrition. Principal Problems/Diagnoses: pancreatitis PMH: obesity, HLD, alcoholism, HTN, smoking GI: abdomen soft, round, tender, flatus present Skin: no pressure wound noted Labs: (12/02) K 3.2 L, Glucose 119 H, lipase 251 H Meds: Zofran, dilaudid, dextrose, protonix Ht: 71in Wt: 225lb BMI: 31.4kg/m2 IBW: 172lb +/- 10% Malnutrition Evaluation (12/02/2018) The patient does not meet criteria for a specified degree of malnutrition at this time. Will re-evaluate at follow-up as appropriate. Nutrition Prescription (Diet Order): clear liquid Estimated Nutritional Needs: Calories: 1716 1950kcal(22-25kcal/kg/d) Weight used: IBW Protein : 117 195g(1.5-2.5g/kg/d) Weight used: IBW Diet Adequacy: Not meeting calorie needs, Not meeting protein needs Diet Education Needs Assessment: Diet education indicated and patient agreeable. Learner(s): pt Barriers: none Cultural/Language Modifications: Pt speaks Macedonian. Readiness: acceptance Method: handouts, explanation Topics: Pancreatitis nutrition therapy low fat diet Understanding/Compliance: Fair understanding/ compliance noted. All questions have been answered. Nutrition Care Level: mod Nutrition Diagnosis: Inadequate oral intake related to pancreatitis as evidenced by NPO/ clear liquid x 6 days. Goal: Patient will meet 75-100% of estimated needs by follow up Progress: Not Progressing Interventions: Modified diet, Composition, Rate, Route, IVF, Prescription medications Monitoring/Evaluation: Total energy intake, Total protein intake, Formula/Solution, IVF, Modified diet, Weight change Signed: Deya Donato MS, RD, LD
--- NOTE | 2018-12-02 19:00 | NUR ---
Received patient awake on bed, not in distress, no complaints of pain at this time, call light within easy reach, advised to call for assistance anytime when needed. Next pain meds due time updated on the board, patient understood. Will continue to monitor closely.
--- NOTE | 2018-12-02 19:15 | NUR ---
Walking rounds done and report given. Call painter within reach.
[2018-12-02] MEDS: ZOLPIDEM TARTRATE 10 MG TAB PO SCH (20:40)
[2018-12-02] MEDS: NEBIVOLOL 10 MG TAB PO SCH (20:41)
[2018-12-02] MEDS: ATORVASTATIN 10 MG TAB PO SCH (20:41)
[2018-12-03] VITALS (8 sets, daily range): BP systolic 141–160; BP diastolic 74–99
[2018-12-03] MEDS: HYDROMORPHONE 2MG/ML 2 MG/ML ML IV PRN ×7 (01:10→21:00)
[2018-12-03] MEDS: ACETAMINOPHEN 325 MG TAB PO PRN (05:10)
[2018-12-03] MEDS: DEXTROSE 5% 1,000 ML IV SCH ×2 (05:10→14:07)
--- NOTE | 2018-12-03 07:25 | NUR ---
PT UP IN BED PAIN LEVEL 3 ,MEDICATED EARLIER,NO DISTRES NOTED,IV INFUSING
[2018-12-03 08:05] LABS: AMYLASE 53 U/L (25-125); ANION GAP 14.1 mmol/L (8-16); BLOOD UREA NITROGEN 6 mg/dL (7-26); BUN/CREATININE RATIO 7 (6-25); CALCIUM 8.4 mg/dL (8.4-10.2); CARBON DIOXIDE 32 mmol/L (22-29); CHLORIDE 93 mmol/L (98-107); CREATININE, SERUM 0.87 mg/dL (0.72-1.25); EST GLOMERULAR FILTRATION RATE > 60 ML/MIN (60-); GLUCOSE 128 mg/dL (74-118); LIPASE 271 U/L (8-78); POTASSIUM 3.1 mmol/L (3.5-5.1); SODIUM 136 mmol/L (136-145)
[2018-12-03] MEDS: PANTOPRAZOLE SOD 40 MG TABEC PO SCH (08:26)
[2018-12-03] MEDS: SUCRALFATE 1 GM TAB PO SCH ×4 (08:26→21:00)
[2018-12-03] MEDS: TIZANIDINE HCL 4 MG TAB PO SCH (08:27)
--- NOTE | 2018-12-03 11:18 | NUR ---
PT REFUSED PICC LINE UNTIL HE SPEAKS WITH PHYSICAN.SPOKE WITH AL TO INFORM HIM PT REFUSED ,NO NEW ORDERS
[2018-12-03 11:19] LABS: HEMATOCRIT 34.3 % (38.2-49.6); HEMOGLOBIN 11.2 g/dL (14.0-18.0); MEAN CORPUSCULAR HGB CONC 32.7 g/dL (31-35); PLATELET COUNT 233 x10e3/uL (140-360); RED BLOOD COUNT 3.73 x10e6/uL (4.3-5.7); RED CELL DISTRIBUTION WIDTH 13.9 % (11.7-14.4)
[2018-12-03 11:28] LABS: CALCIUM IONIZED 1.1 mmol/L (1.09-1.30)
[2018-12-03 11:45] LABS: ALANINE AMINOTRANSFERASE 26 IU/L (0-55); ALBUMIN 2.1 g/dL (3.5-5.0); ALBUMIN/GLOBULIN RATIO 0.6 (0.8-2.0); ALKALINE PHOSPHATASE 128 IU/L (40-150); ANION GAP 15.4 mmol/L (8-16); BLOOD UREA NITROGEN 6 mg/dL (7-26); BUN/CREATININE RATIO 7 (6-25); CARBON DIOXIDE 33 mmol/L (22-29); CHLORIDE 93 mmol/L (98-107); CREATININE, SERUM 0.87 mg/dL (0.72-1.25); EST GLOMERULAR FILTRATION RATE > 60 ML/MIN (60-); GLUCOSE 119 mg/dL (74-118); POTASSIUM 3.4 mmol/L (3.5-5.1); SODIUM 138 mmol/L (136-145)
[2018-12-03 11:46] LABS: BILIRUBIN,DIRECT 1.2 mg/dL (0.0-0.5); PHOSPHORUS 4.1 MG/DL (2.3-4.7)
[2018-12-03 12:09] LABS: ANISOCYTOSIS SLIGHT; LYMPHOCYTES % (MANUAL) 8 % (19-48); METAMYELOCYTES % (MANUAL) 1 % (0-0); MONOCYTES % (MANUAL) 4 % (3.4-9.0); NEUTROPHILS % (MANUAL) 87 % (40-74); RBC MORPHOLOGY COMMENT ABNORMAL; TOXIC GRANULATION MODERATE
[2018-12-03 12:10] LABS: OVALOCYTES FEW; PLATELET ESTIMATE ADEQUATE; PLATELET MORPHOLOGY COMMENT FEW LARGE
[2018-12-03] MEDS: KCL 20MEQ/.9 SOD CHL 1,000 ML IV SCH ×2 (12:15→21:10)
--- NOTE | 2018-12-03 12:30 | NUR ---
dr hilda smith notified abut pt refusal picc line ,stated he would come see pt.
[2018-12-03] MEDS: MEROPENEM 500MG/ NS 50ML 50 ML IV SCH ×2 (14:07→22:45)
--- NOTE | 2018-12-03 14:18 | NUR ---
ORDERS TODAY FOR LTAC EVAL PT REFUSING TO SIGN CHOICE LETTER FOR LTAC UNTIL HE SPEAKS WITH DR Dillon MARTINEZ CALL PLACED TO DR Nick MARTINEZ TO NOTIFY HIM OF REFUSAL OF TREATMENT CALL PLACED TO DR Dillon MARTINEZ (CURRENTLY IN ENDOSCOPY) AND ASKED HIM TO COME SEE PT RG SO WE CAN PROCEED WITH TREATMENT PLAN
[2018-12-03] MEDS: DIAZEPAM 5 MG TAB PO PRN (14:40)
--- NOTE | 2018-12-03 17:20 | Progress Note ---
DATE: 12/03/2018 SUBJECTIVE: Mr. Lees continued to have abdominal pain. He is having back pain. He is having minimum nausea. He continued to have fever of 101, 101.9. PHYSICAL EXAMINATION: GENERAL: He is currently alert, oriented, does not seem to be in acute distress. VITAL SIGNS: Stable. Currently with febrile. HEENT: Not icteric. NECK: Supple. CHEST: Clear. IMPRESSION: Pancreatitis, progressing. Discussed with GI. I would recommend to make the patient n.p.o., put him on meropenem. Obtain blood cultures. TPN. Discussed with the patient. The patient would like to talk with Dr. Amari Steve, before he does anything. We will follow with you. MD THONY Santana/WENDY /[id number]
--- NOTE | 2018-12-03 19:25 | NUR ---
PICC LINE NURSE HAS ARRIVED IN PATIENTS ROOM FOR PROCEDURE.
--- NOTE | 2018-12-03 19:45 | NUR ---
PATIENT IS DONE WITH CENTRAL LINE INSERTION.
[2018-12-03] MEDS ORDERED: CENTRAL TPN FORMULA 1 BAG IV SCH (20:00)
--- NOTE | 2018-12-03 20:15 | NUR ---
PATIENT NOW HAS MIDLINE INSERTED IN LEFT UPPER ARM.
--- NOTE | 2018-12-03 20:31 | Diagnostic Imaging Report ---
A single frontal view of the chest. HISTORY: PICC line, pancreatitis COMPARISON: Chest radiograph December 02, 2018 DISCUSSION: Portable technique, limits sensitivity of the exam. Soft tissue attenuation partially limits sensitivity of the exam. Tubes/Lines: Status post placement of a right upper summary PICC line, the catheter turns cranially and extends beyond the [id number] within the right neck. Lungs and pleura: Low lung volumes result in bibasilar vascular crowding, accentuation of the pulmonary interstitial markings, central pulmonary vasculature, and the cardiac silhouette. Allowing for these limitations, the findings are as follows: No evidence of a consolidative pneumonia or pulmonary alveolar edema. No definite pleural effusion or pneumothorax is identified. Heart and mediastinum: The cardiomediastinal silhouette appear(s) unremarkable. Bones and soft tissues: Appear unremarkable, given this limited exam. IMPRESSION: Status post placement of a right upper summary PICC line, which extends cranially into the neck. At the time of this dictation, the PICC nurse Bolivar Wise is aware of this finding per the technologist that performed the x-ray. Signed by: Dr. Gary Peralta D.O., M.M.M. on 12/03/2018 8:28 PM
[2018-12-03] MEDS: NEBIVOLOL 10 MG TAB PO SCH (21:00)
[2018-12-03] MEDS: ATORVASTATIN 10 MG TAB PO SCH (21:00)
[2018-12-03] MEDS: ZOLPIDEM TARTRATE 10 MG TAB PO SCH (21:00)
[2018-12-03] MEDS: METHADONE HCL 10 MG TAB PO SCH (22:45)
[2018-12-04] VITALS (8 sets, daily range): BP systolic 116–184; BP diastolic 59–98
--- NOTE | 2018-12-04 00:40 | NUR ---
PATIENT HAS A TEMPERATURE OF 101.5 AND VOICED CHILLS. PATIENT WAS MEDICATED ORDERED. WILL CONTINUE TO MONITOR.
[2018-12-04] MEDS: HYDROMORPHONE 2MG/ML 2 MG/ML ML IV PRN ×8 (00:41→22:01)
[2018-12-04] MEDS: ACETAMINOPHEN 325 MG TAB PO PRN (00:44)
[2018-12-04] MEDS ORDERED: HYDROCODONE/APAP 10MG-325MG TAB PO PRN (01:30)
--- NOTE | 2018-12-04 04:30 | NUR ---
PATIENT NOW HAS A TEMPERATURE OF 99.3, NO CHILLS NOTED. PATIENT NOW RESTING WITH BOTH EYES CLOSED, SIDE RAILS UP, CALL LIGHT WITHIN REACH, WILL CONTINUE TO MONITOR.
[2018-12-04] MEDS: METHADONE HCL 10 MG TAB PO SCH ×3 (06:05→21:20)
[2018-12-04] MEDS: MEROPENEM 500MG/ NS 50ML 50 ML IV SCH ×3 (06:05→21:20)
[2018-12-04 06:17] LABS: ALANINE AMINOTRANSFERASE 23 IU/L (0-55); ALBUMIN 1.9 g/dL (3.5-5.0); ALBUMIN/GLOBULIN RATIO 0.6 (0.8-2.0); ALKALINE PHOSPHATASE 110 IU/L (40-150); ANION GAP 14.4 mmol/L (8-16); BLOOD UREA NITROGEN 9 mg/dL (7-26); BUN/CREATININE RATIO 10 (6-25); CALCIUM 8.3 mg/dL (8.4-10.2); CARBON DIOXIDE 30 mmol/L (22-29); CHLORIDE 99 mmol/L (98-107); CREATININE, SERUM 0.86 mg/dL (0.72-1.25); EST GLOMERULAR FILTRATION RATE > 60 ML/MIN (60-); GLUCOSE 131 mg/dL (74-118); POTASSIUM 3.4 mmol/L (3.5-5.1); SODIUM 140 mmol/L (136-145)
--- NOTE | 2018-12-04 07:25 | NUR ---
PT IN BED SLEEPING,NO S/S DISCOMFORT,TPN INFUSING
[2018-12-04] MEDS: KCL 20MEQ/.9 SOD CHL 1,000 ML IV SCH ×2 (08:39→15:48)
[2018-12-04] MEDS: PANTOPRAZOLE SOD 40 MG TABEC PO SCH (09:27)
[2018-12-04] MEDS: SUCRALFATE 1 GM TAB PO SCH ×4 (09:27→21:20)
[2018-12-04] MEDS: TIZANIDINE HCL 4 MG TAB PO SCH (09:27)
--- NOTE | 2018-12-04 09:40 | NUR ---
C/O PAIN LEVEL 6 MEDICATED
[2018-12-04] MEDS ORDERED: PERIPHERAL TPN FORMULA 1 BAG IV SCH ×2 (10:45→20:00)
[2018-12-04] MEDS: FENTANYL 50 MCG/HR PATCH TOP SCH (12:27)
--- NOTE | 2018-12-04 12:40 | NUR ---
PT REQUESTING PAIN MEDS AND MEDICATED,O2 2L NC IN PLACE.
[2018-12-04] MEDS ORDERED: POTASSIUM CHLORIDE 10MEQ EA PO ONE (13:30)
--- NOTE | 2018-12-04 17:52 | NUR ---
PT UP IN BED ,STILL STATES PAIN LEEL 6
[2018-12-04] MEDS: NEBIVOLOL 10 MG TAB PO SCH (21:20)
[2018-12-04] MEDS: ATORVASTATIN 10 MG TAB PO SCH (21:20)
[2018-12-04] MEDS: ONDANSETRON HCL INJ 2MG/ML 2ML 2 MG/ML VIAL IV PRN (22:01)
[2018-12-05] VITALS (8 sets, daily range): BP systolic 122–180; BP diastolic 70–100
[2018-12-05] MEDS: HYDROMORPHONE 2MG/ML 2 MG/ML ML IV PRN ×7 (01:05→22:00)
[2018-12-05] MEDS: KCL 20MEQ/.9 SOD CHL 1,000 ML IV SCH ×3 (04:04→20:25)
[2018-12-05] MEDS: ACETAMINOPHEN 325 MG TAB PO PRN ×2 (04:12→20:50)
[2018-12-05] MEDS: MEROPENEM 500MG/ NS 50ML 50 ML IV SCH ×3 (05:08→21:24)
[2018-12-05] MEDS: METHADONE HCL 10 MG TAB PO SCH ×3 (05:09→21:24)
[2018-12-05 06:05] LABS: BASOPHILS % 0.3 % (0.0-1.0); EOSINOPHILS # (AUTO) 0.1 (0.0-0.4); EOSINOPHILS % 1.1 % (0.0-6.0); HEMATOCRIT 33.9 % (38.2-49.6); HEMOGLOBIN 10.7 g/dL (14.0-18.0); LYMPHOCYTES % 8.6 % (18.0-39.1); MEAN CORPUSCULAR HEMOGLOBIN 29.9 pg (28-32); MEAN CORPUSCULAR HGB CONC 31.6 g/dL (31-35); MEAN CORPUSCULAR VOLUME 94.7 fL (81-99); NEUTROPHILS # (AUTO) 9.2 (2.1-6.9); NEUTROPHILS % 80.2 % (38.7-80.0); PLATELET COUNT 292 x10e3/uL (140-360); RED BLOOD COUNT 3.58 x10e6/uL (4.3-5.7); RED CELL DISTRIBUTION WIDTH 14.3 % (11.7-14.4)
[2018-12-05 06:37] LABS: ALANINE AMINOTRANSFERASE 28 IU/L (0-55); ALBUMIN 2.2 g/dL (3.5-5.0); ALBUMIN/GLOBULIN RATIO 0.6 (0.8-2.0); ALKALINE PHOSPHATASE 197 IU/L (40-150); AMYLASE 88 U/L (25-125); ANION GAP 14.2 mmol/L (8-16); BLOOD UREA NITROGEN 11 mg/dL (7-26); BUN/CREATININE RATIO 12 (6-25); CALCIUM 8.6 mg/dL (8.4-10.2); CARBON DIOXIDE 26 mmol/L (22-29); CHLORIDE 102 mmol/L (98-107); CREATININE, SERUM 0.92 mg/dL (0.72-1.25); EST GLOMERULAR FILTRATION RATE > 60 ML/MIN (60-); GLUCOSE 125 mg/dL (74-118); LIPASE 382 U/L (8-78); POTASSIUM 4.2 mmol/L (3.5-5.1); SODIUM 138 mmol/L (136-145)
--- NOTE | 2018-12-05 07:30 | NUR ---
pt up in bed awake,states pain level 5 medicated earlier.o2 2l nc in [place
[2018-12-05] MEDS: TIZANIDINE HCL 4 MG TAB PO SCH (09:14)
[2018-12-05] MEDS: PANTOPRAZOLE SOD 40 MG TABEC PO SCH (09:14)
[2018-12-05] MEDS: SUCRALFATE 1 GM TAB PO SCH ×4 (09:14→20:25)
--- NOTE | 2018-12-05 12:00 | NUR ---
IV RESTARTED TO RT WRIST 20 GAUGE,RT HAND SWOLLEN ELEVAED ON PILLOW,STATES PAIN LEVEL 6 CHRONIC
--- NOTE | 2018-12-05 17:13 | NUR ---
PT RESTING ,NO S/S DISCOMFORT.
[2018-12-05] MEDS: NEBIVOLOL 10 MG TAB PO SCH (20:25)
[2018-12-05] MEDS: ATORVASTATIN 10 MG TAB PO SCH (20:25)
[2018-12-05] MEDS: PERIPHERAL TPN FORMULA 1 BAG IV SCH (21:22)
[2018-12-06] VITALS (8 sets, daily range): BP systolic 131–189; BP diastolic 76–109
[2018-12-06] MEDS: HYDROMORPHONE 2MG/ML 2 MG/ML ML IV PRN ×8 (01:00→22:50)
--- NOTE | 2018-12-06 04:41 | NUR ---
NOTIFIED DR MARTINEZ PATIENT HASN'T HAD BM SINCE LAST THURSDAY. NEW ORDER RECEIVED
[2018-12-06] MEDS ORDERED: BISACODYL 10 MG SUPP PR ONE (04:45)
--- NOTE | 2018-12-06 05:08 | NUR ---
PATIENT IS OFF UNIT FOR KUB
--- NOTE | 2018-12-06 05:40 | NUR ---
PATIENT IS BACK TO UNIT
[2018-12-06] MEDS: METHADONE HCL 10 MG TAB PO SCH ×3 (05:51→21:57)
[2018-12-06] MEDS: MEROPENEM 500MG/ NS 50ML 50 ML IV SCH ×3 (05:51→21:56)
[2018-12-06 06:18] LABS: BASOPHILS % 0.3 % (0.0-1.0); EOSINOPHILS # (AUTO) 0.1 (0.0-0.4); EOSINOPHILS % 1.4 % (0.0-6.0); HEMATOCRIT 35.6 % (38.2-49.6); HEMOGLOBIN 11.2 g/dL (14.0-18.0); LYMPHOCYTES # (AUTO) 1.2 (1.0-3.2); LYMPHOCYTES % 11.4 % (18.0-39.1); MEAN CORPUSCULAR HEMOGLOBIN 30.1 pg (28-32); MEAN CORPUSCULAR HGB CONC 31.5 g/dL (31-35); MEAN CORPUSCULAR VOLUME 95.7 fL (81-99); MONOCYTES # (AUTO) 1.1 (0.2-0.8); NEUTROPHILS # (AUTO) 7.6 (2.1-6.9); NEUTROPHILS % 75.1 % (38.7-80.0); PLATELET COUNT 280 x10e3/uL (140-360); RED BLOOD COUNT 3.72 x10e6/uL (4.3-5.7); RED CELL DISTRIBUTION WIDTH 14.3 % (11.7-14.4)
[2018-12-06 06:48] LABS: ALANINE AMINOTRANSFERASE 35 IU/L (0-55); ALBUMIN 2.4 g/dL (3.5-5.0); ALBUMIN/GLOBULIN RATIO 0.6 (0.8-2.0); ALKALINE PHOSPHATASE 191 IU/L (40-150); AMYLASE 76 U/L (25-125); ANION GAP 17.2 mmol/L (8-16); BLOOD UREA NITROGEN 13 mg/dL (7-26); BUN/CREATININE RATIO 15 (6-25); CALCIUM 8.9 mg/dL (8.4-10.2); CARBON DIOXIDE 26 mmol/L (22-29); CHLORIDE 100 mmol/L (98-107); CREATININE, SERUM 0.86 mg/dL (0.72-1.25); EST GLOMERULAR FILTRATION RATE > 60 ML/MIN (60-); GLUCOSE 101 mg/dL (74-118); LIPASE 305 U/L (8-78); POTASSIUM 4.2 mmol/L (3.5-5.1); SODIUM 139 mmol/L (136-145)
--- NOTE | 2018-12-06 07:00 | NUR ---
received am report from rn, morning rounds done. pt is oob and walking the hallway. no s/s of distress. gait is steady, no assistive device.
--- NOTE | 2018-12-06 07:31 | Diagnostic Imaging Report ---
Abdomen, 2 views dated 12/06/2014 at 5:07 AM. History: Distended abdomen. Findings: The intestinal gas pattern is nonobstructive. There no masses or abnormal calcifications. Clips in the right upper quadrant and right lower quadrant. Calcification within the prostate gland. The osseous structures reveal mild degenerative changes. IMPRESSION: No acute abdominal abnormality. Signed by: Dr. Brandon Michael DO on 12/06/2018 7:27 AM
[2018-12-06] MEDS: PANTOPRAZOLE SOD 40 MG TABEC PO SCH (07:40)
[2018-12-06] MEDS: SUCRALFATE 1 GM TAB PO SCH ×4 (07:40→20:24)
[2018-12-06] MEDS: TIZANIDINE HCL 4 MG TAB PO SCH (07:40)
[2018-12-06] MEDS: ACETAMINOPHEN 325 MG TAB PO PRN (07:40)
--- NOTE | 2018-12-06 19:15 | NUR ---
patient received awake, alert, lying quietly in bed. tpn/ivf continue to infuse without difficulty. pm assessment complete. patient instructed to call for assistance when needed.
--- NOTE | 2018-12-06 19:46 | NUR ---
patient medicated with dilaudid 2mg ivp for c/o lower back pain 11/10 at this time.
[2018-12-06] MEDS: PERIPHERAL TPN FORMULA 1 BAG IV SCH (20:00)
[2018-12-06] MEDS: ATORVASTATIN 10 MG TAB PO SCH (20:24)
[2018-12-06] MEDS: NEBIVOLOL 10 MG TAB PO SCH (20:24)
--- NOTE | 2018-12-06 22:50 | NUR ---
patient medicated for c/o lower back pain per orders per patients request at this time.
[2018-12-07] VITALS (8 sets, daily range): BP systolic 150–191; BP diastolic 94–101
--- NOTE | 2018-12-07 01:25 | NUR ---
bp 183/96 hr 92 call placed to re: elevated bp. new order for lasix 40 mg iv x 1 ordered at this time.
[2018-12-07] MEDS ORDERED: FUROSEMIDE INJ 10 MG/ML 4 ML VIAL IV ONE (01:30)
[2018-12-07] MEDS: HYDROMORPHONE 2MG/ML 2 MG/ML ML IV PRN ×7 (01:43→20:40)
--- NOTE | 2018-12-07 01:43 | NUR ---
patient medicated for lower back pain per orders at this time per patients request.
[2018-12-07] MEDS: KCL 20MEQ/.9 SOD CHL 1,000 ML IV SCH ×2 (03:40→13:56)
--- NOTE | 2018-12-07 05:00 | NUR ---
bp 191/98 hr 78. call placed to re: elevated bp. awaiting return call.
[2018-12-07] MEDS: MEROPENEM 500MG/ NS 50ML 50 ML IV SCH ×3 (05:46→22:46)
[2018-12-07 06:00] LABS: ALANINE AMINOTRANSFERASE 34 IU/L (0-55); ALBUMIN 2.4 g/dL (3.5-5.0); ALBUMIN/GLOBULIN RATIO 0.6 (0.8-2.0); ALKALINE PHOSPHATASE 170 IU/L (40-150); BLOOD UREA NITROGEN 11 mg/dL (7-26); BUN/CREATININE RATIO 13 (6-25); CARBON DIOXIDE 28 mmol/L (22-29); CHLORIDE 99 mmol/L (98-107); CREATININE, SERUM 0.88 mg/dL (0.72-1.25); EST GLOMERULAR FILTRATION RATE > 60 ML/MIN (60-); GLUCOSE 113 mg/dL (74-118); SODIUM 141 mmol/L (136-145)
[2018-12-07] MEDS: METHADONE HCL 10 MG TAB PO SCH ×3 (06:00→22:46)
--- NOTE | 2018-12-07 06:45 | NUR ---
rounded with hazardous waste technician nurse, patient aware of change and in no distress. call painter within reach and bed in lowest position.
[2018-12-07] MEDS: PANTOPRAZOLE SOD 40 MG TABEC PO SCH (08:20)
[2018-12-07] MEDS: TIZANIDINE HCL 4 MG TAB PO SCH (08:20)
[2018-12-07] MEDS: SUCRALFATE 1 GM TAB PO SCH ×5 (08:20→20:40)
[2018-12-07] MEDS: FENTANYL 50 MCG/HR PATCH TOP SCH (11:21)
--- NOTE | 2018-12-07 17:13 | NUR ---
Nutrition Follow-up Note RD Recommendation(s) for Physician: - Current standard PN (10% dextrose, 8.5% AA) @50mL/hr, providing 1200mL total volume/ day, 60g dextrose, 51g AA, 408 kcal/day. - meets 24% of est calorie and 44% of est protein needs - As lipase level has trend down, rec initiating clear liquid diet with Ensure Clear TID - Check BMP, Phos, Mag daily; Prealbumin, LFT and TG levels weekly - Continue with TPN per MD until diet is advanced and intake is >50% Plan of Care: RD following, monitoring for tolerance and adequacy Nutrition reason for involvement: Follow up RD Assessment 12/07 - Pt was started on PN through midline. K and Na WNL. No Phos and Mg drawn. Visited pt in the room. Explained purpose of PN. Pt in no distress, asking for pain meds. Notified DANE Mcgee. Lipase has trend down, RD rec to intiate clear liquid with Ensure Clear TID. 12/02 - 58yo M, with hx of alcoholism, who was admitted for abdominal pain. Abd CT showed acute non-complicated pancreatitis with increasing extensive inflammatory changes. Pt has been NPO/ on clear liquid x 6 days. Visited pt in the room. Pt reported tolerating clear liquid diet. No complains of nausea or vomiting. Handouts on low fat diet were provided. Discussed case with DANE Bowen. Per RN, pt didnt take in any of the liquids for breakfast and lunch today. Pt has been getting Dilaudid q 3hr. Unable to determine if pt actually tolerating clear liquids. RD rec to initiate PN if unable to advance diet, in order to prevent risk of malnutrition. Principal Problems/Diagnoses: pancreatitis PMH: obesity, HLD, alcoholism, HTN, smoking GI: abdomen flat, soft, non-tender Skin: no pressure wound noted Labs: (12/07) reviewed (12/02) K 3.2 L, Glucose 119 H, lipase 251 H Meds: Dilaudid, meropenem, carafate, protonix Ht: 71in Wt: 225lb BMI: 31.4kg/m2 IBW: 172lb +/- 10% Malnutrition Evaluation (12/02/2018) The patient does not meet criteria for a specified degree of malnutrition at this time. Will re-evaluate at follow-up as appropriate. Nutrition Prescription (Diet Order): NPO Estimated Nutritional Needs: Calories: 1716 1950kcal (22-25kcal/kg/d) Weight used: IBW Protein : 117 195g (1.5-2.5g/kg/d) Weight used: IBW Diet Adequacy: Not meeting calorie needs, Not meeting protein needs Diet Education Needs Assessment: (12/02) Diet education indicated and patient agreeable. Learner(s): pt Barriers: none Cultural/Language Modifications: Pt speaks Ethiopian. Readiness: acceptance Method: handouts, explanation Topics: Pancreatitis nutrition therapy low fat diet Understanding/Compliance: Fair understanding/ compliance noted. All questions have been answered. Nutrition Care Level: mod Nutrition Diagnosis: Inadequate oral intake related to pancreatitis as evidenced by pt requiring PN as main source of nutrition. Goal: Patient will meet 75-100% of estimated needs by follow up Progress: Not Progressing Interventions: Composition, Rate, Route, IVF Monitoring/Evaluation: Total energy intake, Total protein intake, Formula/Solution, IVF, Weight change Signed: Deya Donato, MS, RD, LD
--- NOTE | 2018-12-07 19:10 | NUR ---
rounded with vp construction nurse, patient aware of change and in no distress. call painter within reach and bed in lowest position. daughter at bedside.
--- NOTE | 2018-12-07 19:36 | NUR ---
PT IS RESTING IN BED WITH DAUGHTER AT BEDSIDE. RESPIRATION IS EVEN AND UNLABORED, NO DISTRESS NOTED. BED IN THE LOWEST POSITION, LOCKED, AND CALL LIGHT WITHIN REACH. WILL CONTINUE TO MONITOR.
[2018-12-07] MEDS: ATORVASTATIN 10 MG TAB PO SCH (20:40)
[2018-12-07] MEDS: PERIPHERAL TPN FORMULA 1 BAG IV SCH (20:40)
[2018-12-07] MEDS: NEBIVOLOL 10 MG TAB PO SCH (20:40)
[2018-12-08] VITALS (9 sets, daily range): BP systolic 147–186; BP diastolic 83–108
--- NOTE | 2018-12-08 00:15 | NUR ---
PER DR Rodrigo MARTINEZ PT MAY HAVE ICE CHIPS. WILL CONTINUE TO MONITOR.
[2018-12-08] MEDS: HYDROMORPHONE 2MG/ML 2 MG/ML ML IV PRN ×7 (01:12→22:52)
[2018-12-08 05:59] LABS: BASOPHILS % 0.4 % (0.0-1.0); EOSINOPHILS # (AUTO) 0.1 (0.0-0.4); HEMATOCRIT 32.3 % (38.2-49.6); HEMOGLOBIN 10.2 g/dL (14.0-18.0); LYMPHOCYTES # (AUTO) 0.8 (1.0-3.2); LYMPHOCYTES % 11.6 % (18.0-39.1); MEAN CORPUSCULAR HEMOGLOBIN 29.6 pg (28-32); MEAN CORPUSCULAR HGB CONC 31.6 g/dL (31-35); MEAN CORPUSCULAR VOLUME 93.6 fL (81-99); MONOCYTES # (AUTO) 0.8 (0.2-0.8); MONOCYTES % 10.6 % (4.4-11.3); NEUTROPHILS # (AUTO) 5.3 (2.1-6.9); PLATELET COUNT 304 x10e3/uL (140-360); RED BLOOD COUNT 3.45 x10e6/uL (4.3-5.7)
[2018-12-08] MEDS: MEROPENEM 500MG/ NS 50ML 50 ML IV SCH ×3 (06:05→22:51)
[2018-12-08] MEDS: METHADONE HCL 10 MG TAB PO SCH ×3 (06:18→22:32)
[2018-12-08 06:21] LABS: ALANINE AMINOTRANSFERASE 45 IU/L (0-55); ALBUMIN 2.2 g/dL (3.5-5.0); ALBUMIN/GLOBULIN RATIO 0.6 (0.8-2.0); ALKALINE PHOSPHATASE 151 IU/L (40-150); ANION GAP 16.1 mmol/L (8-16); BLOOD UREA NITROGEN 10 mg/dL (7-26); BUN/CREATININE RATIO 12 (6-25); CALCIUM 8.8 mg/dL (8.4-10.2); CARBON DIOXIDE 29 mmol/L (22-29); CHLORIDE 97 mmol/L (98-107); CREATININE, SERUM 0.84 mg/dL (0.72-1.25); EST GLOMERULAR FILTRATION RATE > 60 ML/MIN (60-); GLUCOSE 108 mg/dL (74-118); LIPASE 215 U/L (8-78); POTASSIUM 4.1 mmol/L (3.5-5.1); SODIUM 138 mmol/L (136-145)
[2018-12-08] MEDS: TIZANIDINE HCL 4 MG TAB PO SCH (08:17)
[2018-12-08] MEDS: SUCRALFATE 1 GM TAB PO SCH ×4 (08:17→21:17)
[2018-12-08] MEDS: PANTOPRAZOLE SOD 40 MG TABEC PO SCH (08:17)
--- NOTE | 2018-12-08 09:40 | NUR ---
PATIENT UP IN BED, ALERT WITH NO DISTRESS, KEEP MONITORING
--- NOTE | 2018-12-08 12:10 | NUR ---
Dressing changed on right foot ankle, patient tolerated well
--- NOTE | 2018-12-08 12:21 | NUR ---
CHOICE LETTER SIGNED FOR [facility] WITH [facility] NOTIFIED OF CONSULT
[2018-12-08] MEDS: PERIPHERAL TPN FORMULA 1 BAG IV SCH (20:00)
--- NOTE | 2018-12-08 20:08 | NUR ---
RECEIVED PT AOX3 WALKING IN THE HALLWAY DENIES PAIN .CALL LIGHT WITH IN REACH .CONTINUE T0 MONITOR
[2018-12-08] MEDS: NEBIVOLOL 10 MG TAB PO SCH (21:17)
[2018-12-08] MEDS: ATORVASTATIN 10 MG TAB PO SCH (21:17)
[2018-12-09] VITALS (8 sets, daily range): BP systolic 138–167; BP diastolic 70–88
[2018-12-09] MEDS: HYDROMORPHONE 2MG/ML 2 MG/ML ML IV PRN ×6 (02:16→23:40)
[2018-12-09] MEDS: ONDANSETRON HCL INJ 2MG/ML 2ML 2 MG/ML VIAL IV PRN (02:17)
[2018-12-09] MEDS ORDERED: SODIUM CHLORIDE 0.9% 250ML 250 ML ONE (06:28)
[2018-12-09] MEDS: METHADONE HCL 10 MG TAB PO SCH ×3 (06:34→22:12)
[2018-12-09] MEDS: MEROPENEM 500MG/ NS 50ML 50 ML IV SCH ×3 (06:34→22:12)
--- NOTE | 2018-12-09 07:23 | NUR ---
PT C/O PAIN AND GIVEN ORDERED PAIN MEDICATION AND BEDSIDE REPORT GIVEN TO THE ONCOMING NURSE
--- NOTE | 2018-12-09 07:55 | NUR ---
Patient ambulating inside room, Alert with no distress, call light in reach, on TPN & IV fluids
[2018-12-09] MEDS: PANTOPRAZOLE SOD 40 MG TABEC PO SCH (08:17)
[2018-12-09] MEDS: SUCRALFATE 1 GM TAB PO SCH ×4 (08:17→20:15)
[2018-12-09] MEDS: TIZANIDINE HCL 4 MG TAB PO SCH (08:18)
--- NOTE | 2018-12-09 11:34 | NUR ---
DISCUSSED IN BARRIER ROUNDS AWAIT LTAC APPROVAL BY INSURANCE TPN NPO IV PAIN MEDS Q 3 HRS
[2018-12-09] MEDS: ATORVASTATIN 10 MG TAB PO SCH (20:15)
[2018-12-09] MEDS: NEBIVOLOL 10 MG TAB PO SCH (20:25)
--- NOTE | 2018-12-09 20:30 | NUR ---
PATIENT COMPLAINS OF PAIN AND WAS MEDICATED ORDERED. NO SIGNS OF RESPIRATORY DISTRESS NOTED. CALL LIGHT WITHIN REACH, WILL CONTINUE TO MONITOR.
[2018-12-09] MEDS: PERIPHERAL TPN FORMULA 1 BAG IV SCH (22:13)
[2018-12-10 00:39] VITALS: BP 173/99
[2018-12-10] MEDS: HYDROMORPHONE 2MG/ML 2 MG/ML ML IV PRN ×3 (02:42→11:47)
--- NOTE | 2018-12-10 04:15 | NUR ---
PATIENT IS AMBULATORY WALKING UP AND DOWN THE HALLS, NO SIGNS OF DISTRESS NOTED, WILL CONTINUE TO MONITOR.
[2018-12-10] MEDS: METHADONE HCL 10 MG TAB PO SCH (05:35)
[2018-12-10] MEDS: MEROPENEM 500MG/ NS 50ML 50 ML IV SCH (05:35)
[2018-12-10 05:57] VITALS: BP 174/75
[2018-12-10 05:57] LABS: BASOPHILS % 0.7 % (0.0-1.0); EOSINOPHILS # (AUTO) 0.1 (0.0-0.4); EOSINOPHILS % 2.1 % (0.0-6.0); HEMOGLOBIN 10.2 g/dL (14.0-18.0); LYMPHOCYTES # (AUTO) 0.7 (1.0-3.2); LYMPHOCYTES % 12.3 % (18.0-39.1); MEAN CORPUSCULAR HEMOGLOBIN 29.7 pg (28-32); MEAN CORPUSCULAR HGB CONC 32.9 g/dL (31-35); MEAN CORPUSCULAR VOLUME 90.4 fL (81-99); MONOCYTES # (AUTO) 0.6 (0.2-0.8); MONOCYTES % 10.4 % (4.4-11.3); NEUTROPHILS % 73.8 % (38.7-80.0); PLATELET COUNT 301 x10e3/uL (140-360); RED BLOOD COUNT 3.43 x10e6/uL (4.3-5.7); RED CELL DISTRIBUTION WIDTH 13.3 % (11.7-14.4)
[2018-12-10 06:29] LABS: ALANINE AMINOTRANSFERASE 42 IU/L (0-55); ALBUMIN 2.3 g/dL (3.5-5.0); ALBUMIN/GLOBULIN RATIO 0.6 (0.8-2.0); ALKALINE PHOSPHATASE 142 IU/L (40-150); AMYLASE 40 U/L (25-125); ANION GAP 14.3 mmol/L (8-16); BLOOD UREA NITROGEN 11 mg/dL (7-26); BUN/CREATININE RATIO 14 (6-25); CALCIUM 8.7 mg/dL (8.4-10.2); CARBON DIOXIDE 29 mmol/L (22-29); CHLORIDE 95 mmol/L (98-107); CREATININE, SERUM 0.76 mg/dL (0.72-1.25); EST GLOMERULAR FILTRATION RATE > 60 ML/MIN (60-); GLUCOSE 93 mg/dL (74-118); LIPASE 169 U/L (8-78); POTASSIUM 4.3 mmol/L (3.5-5.1); SODIUM 134 mmol/L (136-145)
--- NOTE | 2018-12-10 06:54 | NUR ---
RECEIVED PATIENT RESTING IN BED. NO ACUTE DISTRESS NOTED. NO S/S OF PAIN NOTED AT THIS TIME. CALL LIGHT WITHIN REACH. BED IN THE LOWEST POSITION.
[2018-12-10 07:48] VITALS: BP 133/82
[2018-12-10] MEDS: PANTOPRAZOLE SOD 40 MG TABEC PO SCH (08:30)
[2018-12-10] MEDS: SUCRALFATE 1 GM TAB PO SCH ×2 (08:30→11:47)
[2018-12-10] MEDS: TIZANIDINE HCL 4 MG TAB PO SCH (08:48)
[2018-12-10 09:08] VITALS: BP 133/82
--- NOTE | 2018-12-10 09:32 | NUR ---
ASSESSED PATIENT'S LOC. PATIENT IS ALERT BUT DISORIENTED. PAGED DR. Nick MARTINEZ AT THIS TIME.
--- NOTE | 2018-12-10 10:04 | NUR ---
PAGED DR. MARTINEZ A SECOND TIME TO INFORM HIM THAT PATIENT IS DISORIENTED.
--- NOTE | 2018-12-10 10:23 | NUR ---
EDUCATED ABOUT IMM, SIGNED, FILED IN CHART, WITH COPY LEFT WITH FAMILY AT BEDSIDE.
--- NOTE | 2018-12-10 10:56 | NUR ---
SPOKE TO DR. Nick MARTINEZ IN REGARDS TO PATIENT BEING DISORIENTED, PER MD IS DUE TO THE PAIN MEDICATION. OK TO DC PATIENT TO [facility] FOR CONTINUATION OF CARE.
--- NOTE | 2018-12-10 11:01 | NUR ---
REPORT CALLED TO DANE GRIER AT [facility] AT THIS TIME.
--- NOTE | 2018-12-10 11:18 | NUR ---
PAGED DR. CASTRO IN REGARDS TO PATIENT GOING TO [facility] AND BEING DISORIENTED. PER MD MEDICATIONS CAN BE CHANGED ONCE PATIENT GETS TO [facility]. NOTIFIED DANE GRIER AT [facility].
[2018-12-10] MEDS: FENTANYL 50 MCG/HR PATCH TOP SCH (11:41)
--- NOTE | 2018-12-10 11:41 | NUR ---
PATIENT AAOX3 NOW. DR. Nick MARTINEZ ROUNDING ON PATIENT.
[2018-12-10 11:45] VITALS: BP 145/67
--- NOTE | 2018-12-10 12:35 | NUR ---
RECEIVED DC ORDER FORM MD. PATIENT IS IN STABLE CONDITION. IV LINE TO LEFT UPPER ARM MIDLINE AND RIGHT AC ARE INTACT, SALINE FLUSHED. REPORT CALLED TO [facility] @ [phone] TO DANE GRIER. EMS TRANSPORTING PATIENT TO [facility]. ALL TRANSFER MARS GIVEN TO EMS PERSONNEL.
[2018-12-10] MEDS ORDERED: MEROPENEM 500MG/ NS 50ML 50 ML IV SCH (14:00)
--- NOTE | 2019-01-14 07:31 | Discharge Summary ---
CHIEF COMPLAINT: Abdominal pain. FINAL DIAGNOSES: Acute pancreatitis, alcohol abuse, hypokalemia, abdominal pain. DISPOSITION: [facility] HOSPITAL COURSE: A 58-year-old male with history of chronic pain syndrome, alcohol abuse, hypertension, hyperlipidemia, presents to the ER complaining of abdominal pain, demonstrating tenderness in the periumbilical area. Underwent review and evaluation in the emergency room. X-rays and lab were performed. Admission was made with impression of acute alcoholic pancreatitis, chronic back pain, hypertension, hyperlipidemia, obesity. Admission will be made to the Med-Surg floor. We will be requesting a GI followup. With admission, the patient did undergo GI evaluation as well as other consultation with Dr. Sanchez for Infectious Disease review and following Dr. Sanchez's review of the patient, impression was made of pancreatitis. Recommendation was for strict n.p.o., IV fluids. No need for antibiotics. Discussions were made with the patient for the necessity quit drinking and smoking. Agreement was made. He said he is going to start. Hypercholesterolemia, hypertension. The patient was on the Med-Surg floor, started IV n.p.o. status, was on IV fluids, started on PPIs, given hydromorphone for pain control. His daily medications were continuing as well. Laboratory studies were being followed. He then underwent review from a GI standpoint, Dr. Amari Steve related to his upper abdominal pain with findings of pancreatitis. With his review, his impression was acute interstitial pancreatitis secondary to alcohol abuse. Recommend n.p.o. and maintain IV fluids. Monitor pancreatic enzymes. He was continued to maintained on the Med-Surg floor. Continued n.p.o. protocols. Continued watch of his laboratory studies were in place. Continued to have also complains of constant upper abdominal pain. Maintained on n.p.o. status as mentioned, except for consumption of ice chips. Analgesics were being addressed. With review by Dr. Sanchez, no antibiotics were being recommended. Vital signs remained stable. [place] to his stay, he was beginning to respond. He was resting comfortably. There were no nausea or vomiting. Trials being made for full liquids. CT scan of the abdomen was being rechecked. Further diagnostic studies were finding evidence of right nephrolithiasis and with further lab studies reviewed, his leukocytosis was resolving. The repeat CT of his abdomen was still showing pancreatitis involvement. The patient will be continued to be maintained on full liquids. His pancreatic enzymes were continued to be above normal. His IVs were then changed to D5 . Discussions were now being placed for long-term care with further treatment for resolution of symptoms and condition. Case management was brought in to assist placement to [facility] and before transfer we noted that the patient's potassium has required replenishment protocols. The patient was started on potassium replenishment and was able to be transferred to [facility], stable and in guarded condition. IMAGING: Abdomen and pelvis CT, findings were showing evidence consistent with acute noncomplicated pancreatitis. Diverticulosis throughout the colon unchanged, nonobstructing bilateral nephrolithiasis, unchanged on the right and new on the left. Routine chest x-ray shows lungs are well inflated, partial obscuration in the right hemidiaphragm suggestive of small pleural effusion, although the posterior eventration is noted on CT. Cardiomediastinal silhouette is normal. Pulmonary vasculature is normal. Followup abdomen CT shows findings consistent with acute noncomplicated pancreatitis with increasing extensive inflammatory changes compared to the prior study. Followup study recommended. Nonobstructing bilateral renal stones. Repeat chest x-ray noncontributory. Routine abdomen x-ray shows no acute abdominal abnormality. Upper and lower extremity Doppler, lower extremities were showing no evidence of venous thrombosis on the visualized vessels. Blood cultures were negative. Urine culture was negative. LABORATORY STUDIES: CBC reveals an initial study to be unremarkable. Followup CBC shows a rise in the white cell count of 12,500, final up to 13,200. Study at the time of transfer was 5300. Initial H and H were 15.9 and 44.7, followup study shows a decline to a final study of 10.2 and 31.0. Urinalysis shows a cloudy clarity, 1+ protein, 1+ ketones, 3+ occult blood, small amount of bilirubin, 11 to 20 rbc's by high-power field, no bacteria. Chemistries on admission study unremarkable. Followup studies reveal amylase of 608, lipase 2138. Followup amylase 458. Followup lipase from 2159. Further lipase level followup was 422. Potassium began to fall as well, trended down to 3.1. He was started on corrective medication. BNP study was performed showing elevated findings of 814.0. Lipase on 12/03/2018, was 271, on 12/04/2018, was 366. Followup potassium levels were now in normal range. Followup lipase 169. As mentioned, the patient is transferred to [facility] for continuation of care, where that facility will continue on his current medications. Continue with strict diet protocol. I will be monitoring this patient's progress as he continued and care in the facility evaluating the status daily. Dictated by JV Correa Robin Steve MD CC/MODL /[id number]
== END 2018-12-10 12:35 | DRG 871 ==
LOC: ER 15:30 → ERHOLD 18:35 → MED/SURG3 19:53
PROC: 02HV33Z Insertion of Infusion Device into Superior Vena Cava, Percutaneous Approach (ICD-10-PCS; principal; 2018-12-03)
DX: A41.9 Sepsis, unspecified organism (principal); K85.90 Acute pancreatitis without necrosis or infection, unspecified; M54.9 Dorsalgia, unspecified; I10 Essential (primary) hypertension; E78.5 Hyperlipidemia, unspecified; Z68.31 Body mass index [BMI] 31.0-31.9, adult; E78.00 Pure hypercholesterolemia, unspecified; G89.29 Other chronic pain; E66.9 Obesity, unspecified; F10.20 Alcohol dependence, uncomplicated; N20.0 Calculus of kidney; E87.6 Hypokalemia; K21.9 Gastro-esophageal reflux disease without esophagitis
CPT/HCPCS: 36415; 71045; 74018; 74160; 74176; 80048; 80053; 80061; 80307; 81001; 82150; 82248; 82948; 83605; 83690; 83735; 83880; 84100; 84134; 84478; 85007; 85025; 85027; 86301; 87040; 87086; 93971; 96365; 96366; 96376; 99284; J0696; J1170; J1885; J1940; J2270; J2405; J7030; J7042; J7050; J7070; Q9967

== ENCOUNTER 2019-12-21 12:02 | Emergency (ER) | payer OTHER ==
[~2019-12-21] VITALS: Ht 180.3 cm; Wt 102.1 kg
[~2019-12-21 12:02] MED LIST changes: +PANTOPRAZOLE SO40 MG PO; +SUCRALFATE1 GM PO
--- NOTE | 2019-12-21 12:31 | NUR ---
SEEN IN TRIAGE BY
[2019-12-21 13:00] LABS: BASOPHILS % 0.6 % (0.0-1.0); EOSINOPHILS # (AUTO) 0.2 (0.0-0.4); EOSINOPHILS % 2.7 % (0.0-6.0); HEMOGLOBIN 14.6 g/dL (14.0-18.0); LYMPHOCYTES # (AUTO) 2.1 (1.0-3.2); LYMPHOCYTES % 31.1 % (18.0-39.1); MEAN CORPUSCULAR HEMOGLOBIN 29.1 pg (28-32); MEAN CORPUSCULAR VOLUME 85.8 fL (81-99); MONOCYTES # (AUTO) 0.4 (0.2-0.8); MONOCYTES % 6.2 % (4.4-11.3); NEUTROPHILS # (AUTO) 3.9 (2.1-6.9); NEUTROPHILS % 59.2 % (38.7-80.0); PLATELET COUNT 176 x10e3/uL (140-360); RED BLOOD COUNT 5.01 x10e6/uL (4.3-5.7); RED CELL DISTRIBUTION WIDTH 12.8 % (11.7-14.4)
[2019-12-21 13:17] LABS: ALANINE AMINOTRANSFERASE 17 IU/L (0-55); ALBUMIN 3.9 g/dL (3.5-5.0); ALBUMIN/GLOBULIN RATIO 1.6 (0.8-2.0); ALKALINE PHOSPHATASE 77 IU/L (40-150); BILIRUBIN,URINE SMALL (NEGATIVE); BLOOD UREA NITROGEN 17 mg/dL (7-26); BUN/CREATININE RATIO 16 (6-25); CALCIUM 8.8 mg/dL (8.4-10.2); CARBON DIOXIDE 22 mmol/L (22-29); CHLORIDE 109 mmol/L (98-107); CLARITY,URINE TURBID (CLEAR); COLOR,URINE AMBER (YELLOW); CREATININE, SERUM 1.07 mg/dL (0.72-1.25); EST GLOMERULAR FILTRATION RATE > 60 ML/MIN (60-); GLUCOSE 88 mg/dL (74-118); KETONES,URINE NEGATIVE (NEGATIVE); LEUKOCYTE ESTERASE ,URINE NEGATIVE (NEGATIVE); NITRITE,URINE NEGATIVE (NEGATIVE); PROTEIN,URINE DIPSTICK 2+ (NEGATIVE); SODIUM 142 mmol/L (136-145); URINE UROBILINOGEN 0.2 mg/dL (0.2 - 1)
--- NOTE | 2019-12-21 13:17 | Emergency Department Note ---
History of Present Illnes History of Present Illness Chief Complaint: Genitourinary History of Present Illness This is a 59 year old male Chief Complaint Comment BLOOD IN URINE. ABD PAIN STATES MIDDLE AND FEELS LIKE HE'S BEEN DOING SITS ups. Historian: Patient Arrival Mode: Car Ambulatory Technologist Required: No Onset (how long ago): day(s) (1) Location: Bladder Quality: Achy Radiation: Reports non-radiation Severity: moderate Onset quality: gradual Duration (how long): day(s) (1) Timing of current episode: constant Progression: worsening Chronicity: new Context: Denies recent illness Relieving factors: none Exacerbating factors: none Associated symptoms: Reports denies other symptoms Treatments prior to arrival: none Past Medical/Family History Physician Review I have reviewed the patient's past medical and family history. Any updates have been documented here. 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 X ONE YEARS 2019) PANCREATITIS Past Surgical History: Cholecysctectomy, Appendectomy Other Surgery: Laminectomy, left ankle surgery Social History Smoking Cessation: Current every day smoker Counseling Performed: No Alcohol Use: None Any Illegal Drug Use: No Physically hurt or threatened: No Other Last Tetanus: ood Any Pre-Existing Lines (PICC,: No Review of Systems Review of Systems Constitutional: Reports no symptoms EENTM: Reports no symptoms Cardiovascular: Reports no symptoms Respiratory: Reports no symptoms Gastrointestinal: Reports as per HPI, Reports other (Periumbillical pain) Genitourinary: Reports as per HPI, Reports hematuria Musculoskeletal: Reports no symptoms Integumentary: Reports no symptoms Neurological: Reports no symptoms Psychological: Reports no symptoms Endocrine: Reports no symptoms Hematological/Lymphatic: Reports no symptoms Physical Exam Related Data Allergies: Coded Allergies: No Known Allergies (Unverified , 10/13/18) Triage Vital Signs Vital Signs Date Time Temp Pulse Resp B/P (MAP) Pulse Ox O2 Delivery O2 Flow Rate FiO2 12/21/19 12:07 97.9 52 16 155/73 98 Room Air Vital signs reviewed: Yes Physical Exam CONSTITUTIONAL Constitutional: Present well-developed, Present well-nourished HENT HENT: Present normocephalic, Present atraumatic, Present oropharynx clear/moist, Present nose normal HENT L/R: Present left ext ear normal, Present right ext ear normal EYES Eyes: Reports PERRL, Reports conjunctivae normal NECK Neck: Present ROM normal PULMONARY Pulmonary: Present effort normal, Present breath sounds normal CARDIOVASCULAR Cardiovascular: Present regular rhythm, Present heart sounds normal, Present capillary refill normal, Present normal rate GASTROINTESTINAL Abdominal: Present soft, Present nontender, Present bowel sounds normal GENITOURINARY Genitourinary: Present exam deferred SKIN Skin: Present warm, Present dry MUSCULOSKELETAL Musculoskeletal: Present ROM normal NEUROLOGICAL Neurological: Present alert, Present oriented x 3, Present no gross motor or sensory deficits PSYCHOLOGICAL Psychological: Present mood/affect normal, Present judgement normal Results Laboratory Result Diagram: 12/21/19 1230 Laboratory Laboratory Tests Test 12/21/19 12:30 White Blood Count 6.63 x10e3/uL (4.8-10.8) Red Blood Count 5.01 x10e6/uL (4.3-5.7) Hemoglobin 14.6 g/dL (14.0-18.0) Hematocrit 43.0 % (38.2-49.6) Mean Corpuscular Volume 85.8 fL (81-99) Mean Corpuscular Hemoglobin 29.1 pg (28-32) Mean Corpuscular Hemoglobin Concent 34.0 g/dL (31-35) Red Cell Distribution Width 12.8 % (11.7-14.4) Platelet Count 176 x10e3/uL (140-360) Neutrophils (%) (Auto) 59.2 % (38.7-80.0) Lymphocytes (%) (Auto) 31.1 % (18.0-39.1) Monocytes (%) (Auto) 6.2 % (4.4-11.3) Eosinophils (%) (Auto) 2.7 % (0.0-6.0) Basophils (%) (Auto) 0.6 % (0.0-1.0) Neutrophils # (Auto) 3.9 (2.1-6.9) Lymphocytes # (Auto) 2.1 (1.0-3.2) Monocytes # (Auto) 0.4 (0.2-0.8) Eosinophils # (Auto) 0.2 (0.0-0.4) Basophils # (Auto) 0.0 (0.0-0.1) Absolute Immature Granulocyte (auto 0.01 x10e3/uL (0-0.1) Assessment & Plan Medical Decision Making MDM 59-year-old male with periumbilical pain for the last month or so but now with worsening pain and hematuria. No significant abdominal tenderness. Vital signs stable, within a couple limits. Workup shows gross hematuria. Will get CT renal stone protocol to rule out nephrolithiasis. CT shows multiple punctate kidney and ureteral stones. I discussed results with patient and he will follow-up with Dr. Ulrich in urology clinic. Instructed to use ibuprofen and increase his hydration status. Patient was reexamined and is appropriate for discharge. Reassessment Reassessment time: 14:18 Reassessment Well appearing NAD Assessment & Plan Final Impression: (1) Nephrolithiasis Depart Disposition: HOME, SELF-CARE Last Vital Signs Date Time Temp Pulse Resp B/P (MAP) Pulse Ox O2 Delivery O2 Flow Rate FiO2 12/21/19 12:07 97.9 52 16 155/73 98 Room Air Home Meds Reported Medications Sucralfate (SUCRALFATE) 1 Gm Tablet, 1 GM PO ACHS, TAB 11/26/18 Pantoprazole Sodium* (PROTONIX) 40 Mg Tablet.dr, 40 MG PO DAILY, TAB 11/26/18 Atorvastatin Calcium (ATORVASTATIN CALCIUM) 10 Mg Tablet, 10 MG PO 2100, #30 TAB 11/26/18 Tizanidine Hcl (TIZANIDINE HCL) 4 Mg Tablet, 4 MG PO DAILY, TAB 10/13/18 Hydrocodone Bit/Acetaminophen (NORCO 10-325 TABLET) 1 Each Tablet, 1 TAB PO Q6H PRN for MODERATE PAIN (4-6) 10/13/18 Nebivolol Hcl (BYSTOLIC) 10 Mg Tablet, 20 MG PO DAILY 05/20/18 Zolpidem Tartrate (ZOLPIDEM TARTRATE) 10 Mg Tablet, 10 MG PO HS 05/20/18 Diazepam (DIAZEPAM) 10 Mg Tablet, 10 MG PO DAILY PRN for ANXIETY 05/20/18 NITIN BENJAMIN MD Dec 21, 2019 13:17
[2019-12-21 13:19] LABS: BACTERIA,URINE RARE /HPF; MUCUS,URINE FEW (RARE); RBC,URINE >50 /HPF (0-5)
--- OUTSIDE RECORDS SUMMARY | 2019-12-21 13:26 | XMS REPORT | Clinical Summary ---
Author Author [facility] Organization [facility] Address Unknown Phone Unavailable Care Team Providers Care S[employer] Machine Name Role Phone PCP Unavailable Allergies No Known Allergies Medications End Date Status Medication Sig Dispensed Refills Start Date Active predniSONE (DELTASONE) 50 Take 1 tablet 5 tablet 0 mg tabletIndications: by mouth 5 Back pain daily. Active acetaminophen-codeine Take 1 tablet 30 tablet 0 (TYLENOL/CODEINE #3) by mouth 5 300-30 mg per every 4 hours tabletIndications: Back as needed for pain Pain. Active ibuprofen (MOTRIN) 600 mg Take 1 tablet 30 tablet 0 tabletIndications: Back by mouth 5 pain every 8 hours as needed for Pain. Active Problems Not on file Social History Date Tobacco Use Types Packs/Day Years Used Never Assessed Sex Assigned at Date Recorded Not on file Industry Job Start Date Occupation Not on file Not on file Not on file Travel End Travel History Travel Start No recent travel history available. Last Filed Vital Signs Not on file Plan of Treatment Health Maintenance Due Date Last Done Comments Colorectal Cancer Scrn 2012 Annual (FIT/FOBT) Age 50 to 75 IMM Influenza Seasonal 02/02/2020Feb to July (>/= 19 yrs) Results Not on fileafter 12/20/2018 Insurance Type Payer Benefit Subscriber ID Effective Phone Address Plan / Dates Group [facility] SELF-PAY SELF-PAY xxxxxxxxx 2014- [phone] [id number] [place] [address]
--- OUTSIDE RECORDS SUMMARY | 2019-12-21 13:27 | XMS REPORT | Continuity of Care Document ---
Author Author [facility] t Organization [facility] Address [address] [place] [address] Phone Unavailable Care Team Providers Care Data Processing Supervisor Name Role Phone MOLINA WILSON DO PCP MARTINEZ, SOUHEIL Attphys Unavailable MOLINA WILSON Attphys Unavailable SWEET A LAIRD Attphys Unavailable RANCHOBYRachel SOLANGE Attphys Unavailable MARTINEZ, SOUHEIL Admphys Unavailable Payers Payer Name Policy Type Policy Number Effective Date Expiration Date Nick harley Liseth Medicare Complete [id number] 2018 00:00:00 [facility] Problems Condition Name Condition Details Condition Category Status Onset Date Resolution Date Last Treatment Date Treating Clinician Comments Source Chronic low back pain Chronic lower back pain Problem Active 2014-08-08 00:00:00 [facility] Back pain due to inflammatory process Back pain due to infla mmatory process Problem Active 2014-03-11 00:00:00 [facility] Bronchitis Bronchitis Problem Active [facility] Acute exacerbation of chronic obstructive pulmonary disease COPD exacerbation Problem Active [facility] Chest pain Chest pain Problem Active [facility] Rhabdomyolysis Rhabdomyolysis Problem Active [facility] Alcohol-induced acute pancreatitis Pancreatitis, alcoholic, acut e Problem Active [facility] Allergies, Adverse Reactions, Alerts This patient has no known allergies or adverse reactions. Social History Social Habit Start Date Stop Date Quantity Comments Source Sex Assigned At [facility] Medications Ordered Medication Name Filled Medication Name Start Date Stop Da te Current Medication? Ordering Clinician Indication Dosage Frequency Signature (SIG) Comments Components Source Albuterol Sulfate (Proair Hfa Inhaler*) 8.5 Gm Inh, 2 Inh Inhalation Albuterol Sulfate (Proair Hfa Inhaler*) 8.5 Gm Inh, 2 Inh Inhalation 2018-05-22 00:00:00 2018-10-13 00:00:00 Abiola Regan Md 2 Every 4 Hours as needed for Shortness Of Breath [facility] Prednisone 10 Mg Tab, 10 Mg Oral Prednisone 10 Mg Tab, 10 Mg Oral 2018-05-22 00:00:00 2018-10-13 00:00:00 Abiola Regan Md 10 Daily [facility] Tiotropium [place] (Spiriva) 18 Mcg Cap.w.dev, 18 Mcg Inhalation Tiotropium [place] (Spiriva) 18 Mcg Cap.w.dev, 18 Mcg Inhalation 2018-05-22 00:00:00 2018-10-13 00:00:00 Abiola Regan Md 18 [place] y [facility] predniSONE (DELTASONE) 50 mg tablet 2014-12-15 00:00:00 Yes Back pain 50mg QD Take 1 tablet by mouth daily. [facility] acetaminophen-codeine (TYLENOL/CODEINE #3) 300-30 mg per tab let 2014-12-15 00:00:00 Yes Back pain 1{tbl} Take 1 tab let by mouth every 4 hours as needed for Pain. [facility] ibuprofen (MOTRIN) 600 mg tablet 2014-12-15 00:00:00 Yes Back pain 600mg Take 1 tablet by mouth every 8 hours as needed for Pain. [facility] Atorvastatin Calcium 10 Mg Tablet Atorvastatin Calcium 10 Mg Tablet Yes 10 Today At 9:00PM [facility] Diazepam 10 Mg Tablet Diazepam 10 Mg Tablet Yes 10 Daily as needed for Anxiety [facility] Hydrocodone Bit/Acetaminophen (Flat Top 10-325 Tablet) 1 Each Tablet Hydrocodone Bit/Acetaminophen (Flat Top 10-325 Tablet) 1 Each Tablet Yes 1 Every 6 Hours as needed for Moderate Pain (4-6) [facility] Nebivolol Hcl (Bystolic) 10 Mg Tablet Nebivolol Hcl (Bystolic) 10 M g Tablet Yes 20 Daily [facility] Pantoprazole Sodium (Protonix) 40 Mg Tablet. Pantopr azole Sodium (Protonix) 40 Mg Tablet. Yes 40 Daily [facility] Sucralfate 1 Gm Tablet Sucralfate 1 Gm Tablet Yes 1 Before Meals And At Bedtime [facility] Tizanidine Hcl 4 Mg Tablet Tizanidine Hcl 4 Mg Tablet Yes 4 Daily [facility] Zolpidem Tartrate 10 Mg Tablet Zolpidem Tartrate 10 Mg Tablet Yes 10 Bedtime [facility] Meloxicam 7.5 Mg Tablet, 15 Mg Oral Meloxicam 7.5 Mg Tablet, 15 Mg Oral 2018-11-26 00:00:00 No 15 Daily [facility] Atorvastatin Calcium 10 Mg Tablet, 10 Mg Oral Atorvast atin Calcium 10 Mg Tablet, 10 Mg Oral 2018-10-13 00:00:00 No 10 Daily [facility] Oxycodone Hcl (Oxycontin) 10 Mg Tab.er.12h, 10 Mg Oral Oxycodone Hcl (Oxycontin) 10 Mg Tab.er.12h, 10 Mg Oral 2018-10-13 00:00:00 No 10 As Needed as needed for Pain [facility] Hydrocodone Bit/Acetaminophen (Hydrocodo n-Acetaminophn 10-325) 1 Each Tablet, 1 Tab Oral Hydrocodone Bit/Acetaminophen (Hydrocodo n-Acetaminophn 10-325) 1 Each Tablet, 1 Tab Oral 2018-07-18 00:00:00 No 1 Four Times Daily [facility] Nebivolol Hcl (Bystolic) 10 Mg Tablet, 10 Mg Oral Nebi volol Hcl (Bystolic) 10 Mg Tablet, 10 Mg Oral 2018-02-01 00:00:00 No 10 Bedti me [facility] Atorvastatin Calcium 10 Mg Tablet, 10 Mg Oral Atorvast atin Calcium 10 Mg Tablet, 10 Mg Oral 2017-01-23 00:00:00 No 10 Today At 9:00 PM [facility] Losartan Pot.-Hctz , 50 Mg Oral Losartan Pot.-Hctz , 50 Mg Oral 2017-01-23 00:00:00 No 50 Daily [facility] Pregabalin (Lyrica) 150 Mg Capsule, 150 Mg Oral Pregab abdoul (Lyrica) 150 Mg Capsule, 150 Mg Oral 2016-12-17 00:00:00 No 150 Asiya ry 8 Hours [facility] Procedures Procedure Date / Time Performed Performing Clinician [facility] e Computed tomography of abdomen with contrast 2018-12-01 00:0 0:00 TONIA MARTINEZ [facility] CT of abdomen and pelvis without contrast 2018-11-26 00:00:0 0 OLENA MALHOTRA [facility] EGD BIOPSY SINGLE/MULTIPLE 2018-10-15 00:00:00 TONIA MARTINEZ [facility] Magnetic resonance imaging of lumbar spine without contrast 2018-06-15 00:00:00 MOLINA WILSON [facility] Computed tomography of chest with contrast 2018-05-20 00:00:00 RAFAEL SALCEDO [facility] X-ray of chest, two views 2018-05-19 00:00:00 JARED HE [facility] X-ray of chest, two views 2018-05-17 00:00:00 JARED HE [facility] Plan of Care Planned Activity Planned Date Details Comments Source Future Scheduled Test 2020-02-02 00:00:00 IMM Influenza Seas onal Feb to July (>/= 19 yrs) [code = IMM Influenza Seasonal Feb to July (>/= 19 yrs)] [facility] Future Scheduled Test 2012 00:00:00 Screening for ant gnant neoplasm of colon (procedure) [code = 824530117] [facility] Encounters Start Date/Time End Date/Time Encounter Type Admission Type Attendi [facility] Facility Care Department Encounter ID Source 2018-11-26 18:35:00 2018-12-10 12:35:00 Discharged Inpatient 1 JUAN BHARGAVI [facility] [id number] [facility] 2018-10-15 13:42:00 2018-10-15 13:42:00 Registered Surgical Day Care [id number] [facility] 2018-07-18 11:19:00 2018-07-18 12:34:00 Departed Emergency Room [facility] [id number] [facility] - Patients [facility] 2018-06-15 08:35:00 2018-06-15 08:35:00 Registered Clinic 3 MOLINA ENGEL [facility] [id number] [facility] 2018-05-21 21:16:00 2018-05-22 14:39:00 Discharged Inpatient 1 RAFAEL AVILA [facility] [id number] [facility] 2018-05-17 13:46:00 2018-05-17 19:25:00 Departed Emergency Room 1 SOLANGE BAILEY [facility] [id number] [facility] 2018-02-03 09:13:00 2018-02-03 09:13:00 Registered Surgical Day Care [facility] [id number] [facility] 2017-08-10 09:43:00 2017-08-10 12:24:00 Departed Emergency Room ER SOLANGE BAILEY [facility] [id number] [facility] 2017-01-26 11:18:00 2017-01-26 11:18:00 Registered Surgical Day Care [facility] [id number] [facility] 2016-12-17 12:58:00 2016-12-17 15:49:00 Departed Emergency Room [facility] [id number] [facility] Results Test Description Test Time Test Comments Results Result Comments Source Bedside Glucose 2018-12-10 11:08:00 Test Item Bedside Glucose (test code = 81922-3) 104 70-120 Meter ID: [id number] [facility] 2018-12-10 06:33:00* Test Item Value Reference Range Interpretation Comments Sodium Level (test code = 2951-2) 134 136-145 L [facility]Potassium Ohqzc0329-49-80 06:33:00* Test Item Value Reference Range Interpretation Comments Potassium Level (test code = 2823-3) 4.3 3.5-5.1 [facility] HospitalChloride Uelrg4178-65-03 06:33:00* Test Item Value Reference Range Interpretation Comments Chloride Level (test code = 2075-0) 95 98-107 L [facility] HospitalCarbon Dioxide Xubwk1747-49-90 06:33:00* Test Item Value Reference Range Interpretation Comments Carbon Dioxide Level (test code = 2028-9) 29 22-29 [facility] HospitalAnion Omj8603-92-03 06:33:00* Test Item Value Reference Range Interpretation Comments Anion Gap (test code = 04935-6) 14.3 8-16 [facility] HospitalBlood Urea Asouogea7642-53-03 06:33:00* Test Item Value Reference Range Interpretation Comments Blood Urea Nitrogen (test code = 3094-0) 11 7-26 [facility] HospitalCreatinine2019-08-09 06:33:00* Test Item Value Reference Range Interpretation Comments Creatinine (test code = 2160-0) 0.76 0.72-1.25 [facility] HospitalBUN/Creatinine Qpfzj5242-67-39 06:33:00* Test Item Value Reference Range Interpretation Comments BUN/Creatinine Ratio (test code = 3097-3) 14 6-25 [facility] HospitalEstimat Glomerular Filtration Rate 2018-12-10 06:33:00* Test Item Value Reference Range Interpretation Comments Estimat Glomerular Filtration Rate (test code = 527664157) > 60 >60 Ranges were taken from the National Kidney Disease Education Program and the [facility] Kid[facility] Foundation literature.Reference ranges:60 or greater: Vdxzvt82-61 ( for 3 consecutive months): Chronic kidney disease 15 or less: Kidney failureFaith Community HospitalGlucose Zjlca5448-56-31 06:33:00* Test Item Value Reference Range Interpretation Comments Glucose Level (test code = TCH2708) 93 74-118 [facility] HospitalCalcium Rcekl5946-67-66 06:33:00* Test Item Value Reference Range Interpretation Comments Calcium Level (test code = 04530-4) 8.7 8.4-10.2 [facility] HospitalTotal Zswfsuwjv2270-43-21 06:33:00* Test Item Value Reference Range Interpretation Comments Total Bilirubin (test code = 1975-2) 0.8 0.2-1.2 [facility] HospitalAspartate Amino Transf (AST/SGOT) 2018-12-10 06:33:00* Test Item Value Reference Range Interpretation Comments Aspartate Amino Transf (AST/SGOT) (test code = Aspartate Amino Transf (AST/SGOT)) 44 5-34 H [facility] HospitalAlanine Aminotransferase (ALT/SGPT) 2018-12-10 06:33:00* Test Item Value Reference Range Interpretation Comments Alanine Aminotransferase (ALT/SGPT) (test code = 1742-6) 42 0-55 [facility] HospitalTotal Rzzbeuw8638-86-49 06:33:00* Test Item Value Reference Range Interpretation Comments Total Protein (test code = 2885-2) 5.9 6.5-8.1 L [facility] HospitalAlbumin2019-08-09 06:33:00* Test Item Value Reference Range Interpretation Comments Albumin (test code = 1751-7) 2.3 3.5-5.0 L [facility] HospitalGlobulin2019-08-09 06:33:00* Test Item Value Reference Range Interpretation Comments Globulin (test code = 34417-2) 3.6 2.3-3.5 H [facility] HospitalAlbumin/Globulin Zhacz0549-39-86 06:33:00 * Test Item Value Reference Range Interpretation Comments Albumin/Globulin Ratio (test code = 1759-0) 0.6 0.8-2.0 L [facility] HospitalAlkaline Mcwjodgmprt0025-86-14 06:33:00* Test Item Value Reference Range Interpretation Comments Alkaline Phosphatase (test code = 6768-6) 142 40-150 [facility] HospitalAmylase Ghfzi6917-83-00 06:33:00* Test Item Value Reference Range Interpretation Comments Amylase Level (test code = 1798-8) 40 25-125 [facility] HospitalLipase2019-08-09 06:33:00* Test Item Value Reference Range Interpretation Comments Lipase (test code = 3040-3) 169 8-78 H [facility] HospitalWhite Blood Fctjj2295-72-92 06:14:00* Test Item Value Reference Range Interpretation Comments White Blood Count (test code = 6690-2) 5.36 4.8-10.8 [facility] HospitalRed Blood Qxkdw2398-89-18 06:14:00* Test Item Value Reference Range Interpretation Comments Red Blood Count (test code = 789-8) 3.43 4.3-5.7 L [facility] HospitalHemoglobin2019-08-09 06:14:00* Test Item Value Reference Range Interpretation Comments Hemoglobin (test code = 09698-0) 10.2 14.0-18.0 L [facility] HospitalHematocrit2019-08-09 06:14:00* Test Item Value Reference Range Interpretation Comments Hematocrit (test code = 4544-3) 31.0 38.2-49.6 L [facility] HospitalMean Corpuscular Ygndwc3814-44-05 06:14:00* Test Item Value Reference Range Interpretation Comments Mean Corpuscular Volume (test code = 787-2) 90.4 81-99 [facility] HospitalMean Corpuscular Awuuxezhzk7920-40-25 06:14:00* Test Item Value Reference Range Interpretation Comments Mean Corpuscular Hemoglobin (test code = 785-6) 29.7 28-32 [facility] HospitalMean Corpuscular Hemoglobin Concent 2018-12-10 06:14:00* Test Item Value Reference Range Interpretation Comments Mean Corpuscular Hemoglobin Concent (test code = 786-4) 32.9 31-35 [facility] HospitalRed Cell Distribution Pntfh8757-82-02 06:14:00* Test Item Value Reference Range Interpretation Comments Red Cell Distribution Width (test code = 16775-1) 13.3 11.7 -14.4 [facility] HospitalPlatelet Aohet4475-34-74 06:14:00* Test Item Value Reference Range Interpretation Comments Platelet Count (test code = 777-3) 301 140-360 [facility] HospitalNeutrophils (%) (Auto)2018-12-10 06:14:00 * Test Item Value Reference Range Interpretation Comments Neutrophils (%) (Auto) (test code = 11558-5) 73.8 38.7-80.0 [facility] HospitalLymphocytes (%) (Auto)2018-12-10 06:14:00 * Test Item Value Reference Range Interpretation Comments Lymphocytes (%) (Auto) (test code = 736-9) 12.3 18.0-39.1 L [facility] HospitalMonocytes (%) (Auto)2018-12-10 06:14:00* Test Item Value Reference Range Interpretation Comments Monocytes (%) (Auto) (test code = 5905-5) 10.4 4.4-11.3 [facility] HospitalEosinophils (%) (Auto)2018-12-10 06:14:00 * Test Item Value Reference Range Interpretation Comments Eosinophils (%) (Auto) (test code = 713-8) 2.1 0.0-6.0 [facility] HospitalBasophils (%) (Auto)2018-12-10 06:14:00* Test Item Value Reference Range Interpretation Comments Basophils (%) (Auto) (test code = 706-2) 0.7 0.0-1.0 [facility] HospitalIM GRANULOCYTES %2018-12-10 06:14:00* Test Item Value Reference Range Interpretation Comments IM GRANULOCYTES % (test code = IM GRANULOCYTES %) 0.7 0.0- 1.0 [facility] HospitalNeutrophils # (Auto)2018-12-10 06:14:00* Test Item Value Reference Range Interpretation Comments Neutrophils # (Auto) (test code = 751-8) 4.0 2.1-6.9 [facility] HospitalLymphocytes # (Auto)2018-12-10 06:14:00* Test Item Value Reference Range Interpretation Comments Lymphocytes # (Auto) (test code = 09026-6) 0.7 1.0-3.2 L [facility] HospitalMonocytes # (Auto)2018-12-10 06:14:00* Test Item Value Reference Range Interpretation Comments Monocytes # (Auto) (test code = 742-7) 0.6 0.2-0.8 [facility] HospitalEosinophils # (Auto)2018-12-10 06:14:00* Test Item Value Reference Range Interpretation Comments Eosinophils # (Auto) (test code = 711-2) 0.1 0.0-0.4 [facility] HospitalBasophils # (Auto)2018-12-10 06:14:00* Test Item Value Reference Range Interpretation Comments Basophils # (Auto) (test code = 704-7) 0.0 0.0-0.1 [facility] HospitalAbsolute Immature Granulocyte (auto 2018-12-10 06:14:00* Test Item Value Reference Range Interpretation Comments Absolute Immature Granulocyte (auto (sudha t code = Absolute Immature Granulocyte (auto) 0.04 0-0.1 [facility] HospitalCA 19-9 Taoaioq0618-60-67 06:27:00* Test Item Value Reference Range Interpretation Comments CA 19-9 Antigen (test code = 24358-8) 62 0-35 H [facility] Electrochemiluminescence Immunoassay(ECLIA)Values obtained wit h different assay methods or kits cannotbe used interchangeably. Results cannot be interpreted asabsolute evidence of the presence or absence of malignantdisea se.Performed at: [address] [id number] Banking Supervisor: Bobo Denson MD, Phone: [phone] Community HospitalBlood Fscpyke5323-44-62 11:05:00* Test Item Value Reference Range Interpretation Comments Blood Culture (test code = 61157660) NO GROWTH AFTER 5 DAYS, FINAL REPORT [facility] HospitalABDOMEN-1VIEW (KUB)2018-12-06 07:24:00 [place] [address] Patient Name: SANA CHIN MR #: [id number] : 1960 Age/Sex: 58/M Req #: [id number] Adm Physician: BHARGAVI MARTINEZ MD Ordered by: TONIA MARTINEZ MD Report #: [id number] Location: MED/SURG3 Room/Bed: 293-1 Procedure: [id number] DX/ABDOMEN-1VIEW (KUB) Exam Date: 12/06/18 Exam Azam e: 0510 REPORT STATUS: Signed Ab domen, 2 views dated 12/06/2014 at 5:07 AM. History: Distended abdomen. Findings: The intestinal gas pattern is nonobstructive. There no masses or abn ormal calcifications. Clips in the right upper quadrant and right lower quadra nt. Calcification within the prostate gland. The osseous structures reveal mil d degenerative changes. IMPRESSION: No acute abdominal abnormality. Signed by: Dr. Brandon Grande DO on 12/06/2018 7:27 AM Dictated By: BRANDON GRANDE DO 6 Trans cribed By: HENRI on 12/06/18726 COPY TO: TONAI MARTINEZ MD Ercifgyeaa6896-11-39 23:03:00* Test Item Value Reference Range Interpretation Comments Prealbumin (test code = 54319-9) 7 10-36 L Performed at: - [facility] [id number] Director: Bobo Denson MD, Phone: [phone] Community HospitalLactic Acid Xmjlo6268-57-96 14:13:00* Test Item Value Reference Range Interpretation Comments Lactic Acid Level (test code = Lactic Acid Level) 5.0 4.5- 19.8 [facility] YQKHODNPB0784-27-14 20:23:00 [facility] [address] [place] [address] Patient Name: SANA CHIN MR #: [id number] : 1960 Age/Sex: 58/M Req #: [id number] Adm Physician: BHARGAVI MARTINEZ MD Ordered by: TAJ WEEMS MD Report #: [id number] Location: MED/SURG3 Room/Bed: [facility] Procedure: [id number] D X/CHEST XRAY LINE PLACEMENT Exam Date: 12/03/18 Exam Time: 2004 REPORT STATUS: Signed A single frontal view of the chest. HISTORY: PICC line, pancreatitis C OMPARISON: Chest radiograph December 02, 2018 DISCUSSION: Portable pola hnique, limits sensitivity of the exam. Soft tissue attenuation partially pacheco its sensitivity of the exam. Tubes/Lines: Status post placement of a right up per summary PICC line, the catheter turns cranially and extends beyond the fie ld-of-view within the right neck. Lungs and pleura: Low lung volumes result in bibasilar vascular crowding, accentuation of the pulmonary interstit ial markings, central pulmonary vasculature, and the cardiac silhouette. Allo wing for these limitations, the findings are as follows: No evidence of a co nsolidative pneumonia or pulmonary alveolar edema. No definite pleural effusio n or pneumothorax is identified. Heart and mediastinum: The cardiomedia stinal silhouette appear(s) unremarkable. Bones and soft tissues: Appea r unremarkable, given this limited exam. IMPRESSION: Status post plac ement of a right upper summary PICC line, which extends cranially into the nec k. At the time of this dictation, the PICC nurse Bolivar Wise is aware o f this finding per the technologist that performed the x-ray. Signed by: Mi BatesOLuis E, M.M.M. on 12/03/2018 8:28 PM Dictated By: JADA ABEBE DO 27 Tra nscribed By: HENRI on 12/03/182027 COPY TO: TAJ WEEMS MD Differential Total Cells Dppaniz3252-58-41 12:10:00* Test Item Value Reference Range Interpretation Comments Differential Total Cells Counted (test code = Differen tial Total Cells Counted) 100 [facility] HospitalNeutrophils % (Manual)2018-12-03 12:10:00 * Test Item Value Reference Range Interpretation Comments Neutrophils % (Manual) (test code = 51146-1) 87 40-74 H [facility] HospitalLymphocytes % (Manual)2018-12-03 12:10:00 * Test Item Value Reference Range Interpretation Comments Lymphocytes % (Manual) (test code = 737-7) 8 19-48 L [facility] HospitalMonocytes % (Manual)2018-12-03 12:10:00* Test Item Value Reference Range Interpretation Comments Monocytes % (Manual) (test code = 744-3) 4 3.4-9.0 [facility] HospitalMetamyelocytes %2018-12-03 12:10:00* Test Item Value Reference Range Interpretation Comments Metamyelocytes % (test code = 740-1) 1 0-0 H [facility] HospitalPlatelet Dilvzoup6080-84-44 12:10:00* Test Item Value Reference Range Interpretation Comments Platelet Estimate (test code = 29288-2) ADEQUATE [facility] HospitalPlatelet Morphology Ypuvefy8311-73-87 12:10:00* Test Item Value Reference Range Interpretation Comments Platelet Morphology Comment (test code = 11894-8) FEW LARGE [facility] HospitalAnisocytosis2019-08-02 12:10:00* Test Item Value Reference Range Interpretation Comments Anisocytosis (test code = 702-1) SLIGHT [facility] HospitalMacrocytosis2019-08-02 12:10:00* Test Item Value Reference Range Interpretation Comments Macrocytosis (test code = 738-5) MODERATE [facility] HospitalOvalocytes2019-08-02 12:10:00* Test Item Value Reference Range Interpretation Comments Ovalocytes (test code = 774-0) FEW [facility] HospitalToxic Kdrgskcawfl6274-00-43 12:10:00* Test Item Value Reference Range Interpretation Comments Toxic Granulation (test code = 803-7) MODERATE [facility] HospitalDohle Nlhrqj2228-56-45 12:10:00* Test Item Value Reference Range Interpretation Comments Dohle Bodies (test code = 7792-5) FEW [facility] HospitalRed Cell Morphology Dwaamyo4123-97-24 12:10:00* Test Item Value Reference Range Interpretation Comments Red Cell Morphology Comment (test code = 6742-1) ABNORMAL [facility] HospitalPhosphorus Phwmb6695-68-10 11:48:00* Test Item Value Reference Range Interpretation Comments Phosphorus Level (test code = IWN6423) 4.1 2.3-4.7 [facility] HospitalDirect Hgozjoali8774-94-69 11:48:00* Test Item Value Reference Range Interpretation Comments Direct Bilirubin (test code = 56110-3) 1.2 0.0-0.5 H [facility] HospitalTriglycerides Qlwvc8076-77-56 11:48:00* Test Item Value Reference Range Interpretation Comments Triglycerides Level (test code = 2571-8) 100 0-149 [facility] HospitalMagnesium Oeyrd1242-27-91 11:43:00* Test Item Value Reference Range Interpretation Comments Magnesium Level (test code = 31152-8) 1.7 1.3-2.1 [facility] HospitalIonized Sczdkkj1099-51-48 11:28:00* Test Item Value Reference Range Interpretation Comments Ionized Calcium (test code = 01260-3) 1.1 1.09-1.30 [facility] HospitalB-Type Natriuretic Aowxtth1141-56-12 12:13:00* Test Item Value Reference Range Interpretation Comments B-Type Natriuretic Peptide (test code = 70660-0) 814.0 0-100 H [facility] SINGLE (PORTABLE)2018-12-02 11:31:00 [place] [address] Patient Name: SANA CHIN MR #: [id number] : 1960 Age/Sex: 58/M Req #: [id number] Adm Physician: BHARGAVI MARTINEZ MD Ordered by: BHARGAVI MARTINEZ MD Report #: [id number] Location: MED/SURG3 Room/Bed: [facility] Procedure: [id number] DX/CHEST SINGLE (PORTABLE) Exam Date: 12/02/18 Exam Time: 1045 REPORT STATUS: Signed EXAMINATION: CHEST SINGLE (PORTABLE) INDICATION: Shortness of breath COMPARISON: None FINDINGS: LINES/TUBES:None LUNGS:The lungs are moderately inflated. No focal consolidation or pulmonary edema. PLEURA:No pleural effusion or pneumothorax. MEDIASTINUM:The cardiomediasti nal silhouette appears to be at the upper limits of normal for size. BONE S/SOFT TISSUES:No acute osseous injury. ABDOMEN:No free air under the diaph ragm. IMPRESSION: No focal pneumonia or pulmonary edema. Signed by: Tamika Dutton MD on 12/02/2018 11:32 AM Dictated By: TAMIKA DUTTON MD Elect ronically Signed By: TAMIKA DUTTON MD on 12/02/18 1132 Transcribed By: HENRI on 12/02/18 1132 COPY TO: BHARGAVI MARTINEZ MD CT ABDOMEN [id number] 07:21:[address], [place], [place] [address] Patient Name: SANA CHIN MR #: [id number] : 1960 Age/Sex: 58/M Req #: [id number] Adm Physician: BHARGAVI MARTINEZ MD Ordered by: TONIA MARTINEZ MD Report #: [id number] Location: [facility] Room/Bed: 293- Procedure: [id number] CT/CT ABDOMEN W Exam Date: 12/01/18 Exam Time: 06 REPORT STATUS: Signed EXAM: CT Abdomen and Pelvis with contrast INDICATION: Unresolved abdominal pain. COMPARISON: CT abdomen and pelvis 12/01/2018. TECHNIQUE: Abdomen and pelvis were scanned utilizing a multidetector helical scanner from the lung ba se to the pubic symphysis after administration of IV contrast. Coronal and sag ittal reformations were obtained. Routine protocol was performed. IV CONTRAST: 100 cc of Isovue 370 ORAL CONTRAST: Water RADIATION DOSE: Total DLP: 519.6 mGy*cm Estimated effective dose: (DLP x 0.015 x size factor) mSv COMPLICATIONS: None FIN DINGS: LINES and TUBES: None. LOWER THORAX: Interval development of a small left and trace right pleural effusion. Patchy left lower lobe opacity, likely atelectasis. HEPATOBILIARY: No focal hepatic lesions. No bilia ry ductal dilation. GALLBLADDER: Cholecystectomy. SPLEEN: No splenome oc. PANCREAS: There is increasing large amount of of fat stranding surro unding the body and tail consistent with acute pancreatitis. Increasing surrou nding small amount of low-attenuation fluid. No evidence of pancreatic hypoenh ancement or pseudocyst. No evidence of mass. ADRENALS: No adrenal nodules KIDNEYS/URETERS: No hydronephrosis. No cystic or solid mass lesions. Unchanged nonobstructing 4 mm calcified stone in the inferior pole of the right kidney and 2 mm and 1 mm calcified stones in the inferior pole of the left kidney, better characterized on the prior non-contrast study. No evidence of ureteral stone. GI TRACT: Partially visualized. No abnormal distention, wa ll thickening, or evidence of bowel obstruction. Appendectomy. LYMPH NOD ES: No lymphadenopathy. VESSELS: Unremarkable. PERITONEUM / RETROPERIT ONEUM: No free air. Small amount of low-attenuation fluid adjacent to the panc reatic tail and the spleen, increased from the prior study. BONES: Sever e degenerative change at L5-S1 with cortical destruction of L5 and mild protru sergio of L5 into the spinal canal is unchanged. SOFT TISSUES: Unremarkable. IMPRESSION: CT findings consistent with acute noncomplicated pancreatitis with increasing extensive inflammatory changes compared to the p rior study. Follow-up after treatment. Non-obstructing bilateral renal st ones. Signed by: Dr. Pillo Geller MD on 12/01/2018 7:31 AM Dictated B y: PILLO GELLER MD 0 Card scribed By: HENRI on 12/01/18730 COPY TO: TONIA MARTINEZ MD Basophils % (Manual)2018-12-01 06:26:00* Test Item Value Reference Range Interpretation Comments Basophils % (Manual) (test code = 05850-3) 1 0-1.5 [facility] Neutrophils %2018-11-30 08:30:00* Test Item Value Reference Range Interpretation Comments Band Neutrophils % (test code = 764-1) 11 [facility] Hospital[facility] SINGLE (PORTABLE)2018-11-28 10:29:00 [facility] [address] [place] [address] Patient Name: SANA CHIN MR #: [id number] : 1960 Age/Sex: 58/M Req #: [id number] Adm Physician: BHARGAVI MARTINEZ MD Ordered by: VICKY ESPINO MD Report #: [id number] Location: MED/SURG3 Room/Bed: 293-1 Procedure: [id number] DX/CHEST SINGLE (PORTABLE) Exam Date: 11/28/18 Exam Time: 1011 REPORT STATUS: Signed Examination: Single AP view of the chest. COMPARISON: CT abdomen and pelvis 11/26/2018 INDICATION: Shortness of breath IMPRESSION: 1. Lines and Tubes: None 2. Lungs are well-inflated. Partial obscuration of the left hemidiaphragm, suggestive of small pleural effusion, however, posterior e ventration of the left hemidiaphragm is noted on CT dated 11/26/2018. Chest PA and lateral would be helpful for further evaluation. 3. Cardiomediastinal s ilhouette is normal. Pulmonary vasculature is normal. 4. No acute bony abno rmalities. Signed by: Dr. Ariel Medina M.D. on 11/28/2018 10:31 AM Dictated By: ARIEL MEDINA MD 1031 Transcribed By: HENRI on 11/28/18 1031 COPY TO: VICYK PATTERSON MD Cholesterol Cuvdl8446-64-57 16:00:00* Test Item Value Reference Range Interpretation Comments Cholesterol Level (test code = 2093-3) 164 0-199 Less than 200 mg/dL Low Vexm304 - 239 mg/dL Borderline Odvc177 m g/dl and greater High Risk [facility] HospitalLDL Rribdmmgkef3007-58-33 16:00:00* Test Item Value Reference Range Interpretation Comments LDL Cholesterol (test code = 2089-1) 79 60-130 [facility]HDL Hvdgzltwyuw4741-73-95 16:00:00* Test Item Value Reference Range Interpretation Comments HDL Cholesterol (test code = 2085-9) 66 40-60 H [facility] HospitalCh[facility]/HDL Mzxth5715-34-13 16:00:00 * Test Item Value Reference Range Interpretation Comments Cholesterol/HDL Ratio (test code = 9830-1) 2.5 3.9-4.7 L [facility] HospitalUrine Dxjhwhaq4164-92-56 18:11:00* Test Item Value Reference Range Interpretation Comments Urine Bacteria (test code = 25713-2) NONE NONE [facility] OIP2650-90-25 17:55:00* Test Item Value Reference Range Interpretation Comments Urine WBC (test code = 5821-4) NONE 0-5 [facility] Hospital[facility] LGH1749-27-41 17:55:00* Test Item Value Reference Range Interpretation Comments Urine RBC (test code = 11328-0) 11-20 0-5 H [facility] Hospital[facility] Epithelial Fpjnr8596-83-03 17:55:00 * Test Item Value Reference Range Interpretation Comments Urine Epithelial Cells (test code = 26088-3) MODERATE NONE [facility] HospitalCT [facility]BDOMEN/PELVIS NQ9417-02-52 17:49:00 [facility] [address] [place] [address] Patient Name: SANA CHIN MR #: [id number] : 1960 Age/Sex: 58/M Req #: [id number] Adm Physician: Ordered by: OLENA MALHOTRA MD Report #: [id number] Location: ER Room/Bed: Procedure: [id number] CT/CT ABDOMEN/PELVIS WO Exam Date: 11/26/18 Keo stevens Time: 3077 REPORT STATUS: Signed EXAM: CT Abdomen and Pelvis WITHOUT contrast INDICATION: left fl ank pain [id number] Y COMPARISON: CT abdomen and pelvis 01/2018 TECHNIQUE: Abdomen and pelvis were scanned utilizing a multidetector h elical scanner from the lung base to the pubic symphysis without administratio n of IV contrast. Absence of intravenous contrast decreases sensitivity for de tection of focal lesions and vascular pathology. Coronal and sagittal reformat ions were obtained. Stone protocol is performed. IV CONTRAST: No ne. ORAL CONTRAST: Water RADIATION DOSE: Total DLP: 781.7 mGy*cm Estimated effective dose: (DLP x 0.015 x size factor ) mSv COMPLICATIONS: None FINDINGS: LINES and TUBES: Non e. LOWER THORAX: Unremarkable HEPATOBILIARY: No focal hepatic le sions. No biliary ductal dilation. GALLBLADDER: Cholecystectomy. SPLE EN: No splenomegaly. PANCREAS: Large amount of fat stranding surrounding t he distal body and tail consistent with acute pancreatitis. Small amount of lo w-attenuation fluid adjacent to the pancreatic tail and the spleen. No pancrea tic necrosis or pseudocyst. No masses on limited evaluation. ADRENALS: No adrenal nodules KIDNEYS/URETERS: No hydronephrosis. No cystic or so lid mass lesions. Unchanged nonobstructing 4 mm calcified stone in the inferi or pole of the right kidney on coronary image 74. New 2 and 1 [address] ne in the inferior pole of the left kidney on image 74 and 73. No calcified st ones in the ureters. GI TRACT: No abnormal distention, wall thickening, or evidence of bowel obstruction. Scattered diverticulosis throughout the colon without diverticulitis, unchanged. Appendectomy. PELVIC ORGANS/BLADDER: The urinary bladder is partially collapsed. Prostate calcifications, unchanged . LYMPH NODES: No lymphadenopathy. VESSELS: Unremarkable. PERITON EUM / RETROPERITONEUM: No free air. Small amount of low-attenuation fluid enzo cent to the pancreatic tail and the spleen. BONES: Severe degenerative butch nge at L5-S1 with cortical destruction of L5 and mild protrusion of L5 into th e spinal canal is unchanged when compared to 08/10/2017. SOFT TISSUES: Un remarkable. IMPRESSION: 1. CT findings consistent with acut e noncomplicated pancreatitis. Follow-up after treatment. 2. Diverticulosis throughout the colon, unchanged. 3. Nonobstructing bilateral nephrolithiasi s, unchanged on the right and new on the left. Signed by: Dr. Jesenia Reyes M.D. on 11/26/2018 5:58 PM Dictated By: JESENIA SANCHEZ MD 59 T ranscribed By: HENRI on 11/26/181757 COPY TO: OLENA MALHOTRA MD Urine Zvmin1110-64-88 17:46:00* Test Item Value Reference Range Interpretation Comments Urine Color (test code = 5778-6) STRAW YELLOW [facility] Xqgwmzb5897-48-92 17:46:00* Test Item Value Reference Range Interpretation Comments Urine Clarity (test code = 90992-5) SL CLOUDY CLEAR H [facility] HospitalU[facility] Specific Vruogpk2619-60-23 17:46:00 * Test Item Value Reference Range Interpretation Comments Urine Specific [place] (test code = 5811-5) >=1.030 1.010-1.02 5 [facility] gJ2164-24-07 17:46:00* Test Item Value Reference Range Interpretation Comments Urine pH (test code = 33515-9) 6 5-7 [facility] Leukocyte Npkpdhwb0275-48-90 17:46:00* Test Item Value Reference Range Interpretation Comments Urine Leukocyte Esterase (test code = 61737-8) NEGATIVE NEGATIV E [facility] Mpjbmrg2104-11-79 17:46:00* Test Item Value Reference Range Interpretation Comments Urine Nitrite (test code = 56512-6) NEGATIVE NEGATIVE [facility] Dhzwrxq1734-09-37 17:46:00* Test Item Value Reference Range Interpretation Comments Urine Protein (test code = 49462-1) 1+ NEGATIVE H [facility] Glucose (UA)2018-11-26 17:46:00* Test Item Value Reference Range Interpretation Comments Urine Glucose (UA) (test code = 51455-6) NEGATIVE NEGATIVE [facility] Eborbpb4466-08-41 17:46:00* Test Item Value Reference Range Interpretation Comments Urine Ketones (test code = 43259-3) 1+ NEGATIVE H [facility] Opiates Iuixad1038-77-20 17:46:00* Test Item Value Reference Range Interpretation Comments Urine Opiates Screen (test code = 00965-2) POSITIVE NEGATIVE H ALL TESTS PERFORMED MANUALLY ON [employer] TOX/SEE TEST This test provides only a sc reen. Positive results should be repeated by a confirmatory test.[facility] Barbiturates Pwpqye9362-52-08 17:46:00* Test Item Value Reference Range Interpretation Comments Urine Barbiturates Screen (test code = 035763421) NEGATIVE NEGA TIVE [facility] Phencyclidine Lszenj0234-60-44 17:46:00* Test Item Value Reference Range Interpretation Comments Urine Phencyclidine Screen (test code = 72554-9) NEGATIVE NEGAT CUCO [facility] Amphetamines Ouwcby8574-23-80 17:46:00* Test Item Value Reference Range Interpretation Comments Urine Amphetamines Screen (test code = 66941-5) NEGATIVE NEGATI VE [facility] Methamphetamines Gwphqd1909-80-17 17:46:00* Test Item Value Reference Range Interpretation Comments Urine Methamphetamines Screen (test code = Urine Metha mphetamines Screen) NEGATIVE NEGATIVE [facility] Benzodiazepines Wgdidj3086-46-09 17:46:00* Test Item Value Reference Range Interpretation Comments Urine Benzodiazepines Screen (test code = 82516-8) POSITIVE NEG ATIVE H This test provides only a screen. Positive results should be repeated by a confi rmatory test.[facility] Hospital[facility] Cocaine Screen 2018-11-26 17:46:00* Test Item Value Reference Range Interpretation Comments Urine Cocaine Screen (test code = 3398-5) NEGATIVE NEGATIVE [facility] Cannabinoids Ofarvp2218-80-30 17:46:00* Test Item Value Reference Range Interpretation Comments Urine Cannabinoids Screen (test code = 75152-2) NEGATIVE NEGATI VE THESE RESULTS ARE FOR MEDICAL TREATMENT ONLYTHIS REPORT CONTAINS UNCONFIR MED SCREENING RESULTS*POSITIVE RESULTS WILL BE CONFIRMED BY REFERENCE LAB UPON R EQUEST CUT-OFFDRUG CLASS CONCENTRATION ng/mLAmphetamines 1000Methamphetamines 1000Cocaine 300Opiate 300Phencyc lidine 25Cannabinoid 50Barbiturates 300Benzodiazepine 300Methadone 300[facility] Methadone Nwhxpc4662-26-35 17:46:00* Test Item Value Reference Range Interpretation Comments Urine Methadone Screen (test code = 10965-0) NEGATIVE NEGATIVE THESE RESULTS ARE FOR MEDICAL TREATMENT ONLYTHIS REPORT CONTAINS UNCONFIR MED SCREENING RESULTS*POSITIVE RESULTS WILL BE CONFIRMED BY REFERENCE LAB UPON R EQUEST CUT-OFFDRUG CLASS CONCENTRATION ng/mLAmphetamines 1000Methamphetamines 1000Cocaine Metabolite 300Opiate 300Phencyc lidine 25Cannabinoid 50Barbiturates 300Benzodiazepine 300Methadone 300[facility] Brjzlxxsbnxu2707-86-88 17:46:00* Test Item Value Reference Range Interpretation Comments Urine Urobilinogen (test code = 98507-4) 0.2 0.2-1 [facility] Kaywcwizv2634-02-61 17:46:00* Test Item Value Reference Range Interpretation Comments Urine Bilirubin (test code = 1977-8) SMALL NEGATIVE [facility] Bqcvu1233-86-69 17:46:00* Test Item Value Reference Range Interpretation Comments Urine Blood (test code = 33847-8) 3+ NEGATIVE [facility] HospitalMRI SPINE LUMBAR VM5967-07-51 10:03:00 [facility] [address] [address] Patient Name: SANA CHIN MR #: [id number] : 1960 Age/Sex: 58/M Req #: [id number] Adm Physician: Ordered by: MOLINA WILSON DO Report #: [id number] Location: MRI Room/Bed: Procedure: [id number] MR I/MRI SPINE LUMBAR WO Exam Date: 06/15/18 Exam Time: 0910 REPORT STATUS: Signed MRI SPINE LUMBAR WO HISTORY: Low back pain, left leg pain and left foot drop COMPARISON: MRI of the lumbar spine 01/31/2013; reports from MRI of the lumbar spine dated 08/08/14 and 03/11/2014 (images not available at time of dictation) TECHNIQUE: Sagittal T1, sagittal T2, sagittal STIR, axial T2, coronal T2, and axial proton density weighted images of the lumbar spine were obtained w ithout contrast. DISCUSSION: Number of non-rib bearing lumbar verteb ral bodies: 5. Alignment: Straightening of the lumbar lordosis. No scoliosis. Vertebrae: Approximately 2 cm round T1/T2 hyperintense lesion in the right T10 vertebral body is a benign hemangioma. Otherwise, no evidence for acute fr actures, infection or neoplasm. Conus medullaris: Normal, ends at L2. Cauda equina: No masses or arachnoiditis. Posterior paraspinal muscles: Well preser bib. Left-sided posterior incision signal changes are seen along the lower lum bar spine. Soft tissues: A small T2 hyperintense lesion in the right kidney ma y be a cyst. Postsurgical changes related to prior left posterolateral fusi on from L4 to S1 are present. Previously described left-sided transpedicular s crews at these levels have been removed. There is associated severe disc degeneration at L4-L5 and L5-S1. Osseous fusion is seen across the L5-S1 disc space. T12-L1: Patent canal and foramina. L1-L2: Patent canal and for tori. L2-L3: Disc bulge without significant canal or foraminal stenosis. L3-L4: Mild canal stenosis due to disc bulge and ligamentum flavum thickening is accentuated by mild posterior epidural lipomatosis. No significant forami nal stenosis. L4-L5: There is mild retrolisthesis of L4 on L5. Mild bilat eral foraminal stenoses due to posterior disc osteophyte complex and facet art hrosis. No significant canal stenosis. L5-S1: Mild to moderate right and moderate to severe left foraminal stenoses due to posterior disc osteophyte co mplex and facet arthrosis. There is likely impingement of the exiting left L5 nerve root. No significant canal stenosis. IMPRESSION: 1. Prior left pos terolateral fusion changes from L4 to S1. Previously described left-sided card spedicular screws at these levels have been removed. 2. Associated severe L4 -L5 and L5-S1 disc degeneration with osseous fusion across the L5-S1 disc spac e. 3. Multilevel lower lumbar bilateral degenerative foraminal stenoses - m oderate to severe on the left at L5-S1. 4. Mild degenerative canal stenosis a t L3-L4 accentuated by mild epidural lipomatosis. Signed by: Dr. Ye fam M.D. on 06/15/2018 10:30 AM Dictated By: YE LAWRENCE MD Elec tronically Signed By: YE LAWRENCE MD on 06/15/18 1030 Transcribed By: DERRICK RAN on 06/15/18 1030 COPY TO: MOLINA WILSON DO Immunoglobulin E 2018-05-25 22:17:00* Test Item Value Reference Range Interpretation Comments Immunoglobulin E (test code = 08988-3) 62 0-100 Performed at: [address] [id number] Banking Supervisor: Luna Hall MD, Phone: [phone] Community HospitalImmunoglobulin T9032-54-27 22:17:00* Test Item Value Reference Range Interpretation Comments Immunoglobulin E (test code = 29204-4) 62 0-100 Performed at: [address] [id number] Banking Supervisor: Luna Hall MD, Phone: [phone] Community HospitalBlood Jhlkhgw0795-66-51 23:53:00* Test Item Value Reference Range Interpretation Comments Blood Culture (test code = 84092484) NO GROWTH AFTER 5 DAYS, FINAL REPORT [facility] HospitalAlpha-1-Qgqqeynotry9770-90-40 12:20:00* Test Item Value Reference Range Interpretation Comments Pvznh-3-Armrlnvpeqt (test code = 1825-9) 141 90-200 Performed at: [facility] [facility] [address], [place], [place] [address] 4Lab Director: SUSI Benjamin MD, Phone: [phone] Community HospitalAlpha-1-Okjvzpbcmwr0302-05-42 12:20:00* Test Item Value Reference Range Interpretation Comments Moxbw-3-Ibzynqxcuzq (test code = 1825-9) 141 90-200 Performed at: [facility] [address] [facility] [address], [place], [place] [address] 4Lab Director: SUSI Benjamin MD, Phone: [phone] Community HospitalBlood Dkillkr7725-80-87 14:30:00* Test Item Value Reference Range Interpretation Comments Blood Culture (test code = 82636873) NO GROWTH AFTER 5 DAYS, FINAL REPORT [facility] Zuxnx9079-36-75 06:00:00* Test Item Value Reference Range Interpretation Comments Sodium Level (test code = 2951-2) 140 136-145 [facility] HospitalPotassium Hrgzf7627-87-20 06:00:00* Test Item Value Reference Range Interpretation Comments Potassium Level (test code = 2823-3) 4.2 3.5-5.1 [facility] HospitalChloride Arpfo4485-38-53 06:00:00* Test Item Value Reference Range Interpretation Comments Chloride Level (test code = 2075-0) 105 98-107 [facility] HospitalCarbon Dioxide Oincp9291-50-22 06:00:00* Test Item Value Reference Range Interpretation Comments Carbon Dioxide Level (test code = 2028-9) 26 22-29 [facility] HospitalAnion Ubi5118-25-78 06:00:00* Test Item Value Reference Range Interpretation Comments Anion Gap (test code = 57216-2) 13.2 8-16 [facility] HospitalBlood Urea Emxopeha2037-66-87 06:00:00* Test Item Value Reference Range Interpretation Comments Blood Urea Nitrogen (test code = 3094-0) 14 7-26 [facility] HospitalCreatinine2019-01-19 06:00:00* Test Item Value Reference Range Interpretation Comments Creatinine (test code = 2160-0) 0.84 0.72-1.25 [facility] HospitalBUN/Creatinine Qsdcc2290-96-15 06:00:00* Test Item Value Reference Range Interpretation Comments BUN/Creatinine Ratio (test code = 3097-3) 17 6-25 [facility] HospitalEstimat Glomerular Filtration Rate 2018-05-22 06:00:00* Test Item Value Reference Range Interpretation Comments Estimat Glomerular Filtration Rate (test code = 392271617) > 60 >60 Ranges were taken from the National Kidney Disease Education Program and the [facility] Kidney Foundation literature.Reference ranges:60 or greater: Umjagf24-14 ( for 3 consecutive months): Chronic kidney disease 15 or less: Kidney failureFaith Community HospitalGlucose Illep7288-63-67 06:00:00* Test Item Value Reference Range Interpretation Comments Glucose Level (test code = DSB4377) 156 74-118 H [facility] HospitalCalcium Yweqb0690-74-24 06:00:00* Test Item Value Reference Range Interpretation Comments Calcium Level (test code = 89585-0) 8.8 8.4-10.2 [facility] Hvzve7559-88-78 06:00:00* Test Item Value Reference Range Interpretation Comments Sodium Level (test code = 2951-2) 140 136-145 [facility] HospitalPotassium Hznyu4219-13-79 06:00:00* Test Item Value Reference Range Interpretation Comments Potassium Level (test code = 2823-3) 4.2 3.5-5.1 [facility] HospitalChloride Jaijo1907-29-99 06:00:00* Test Item Value Reference Range Interpretation Comments Chloride Level (test code = 2075-0) 105 98-107 [facility] HospitalCarbon Dioxide Yzved6770-18-06 06:00:00* Test Item Value Reference Range Interpretation Comments Carbon Dioxide Level (test code = 2028-9) 26 22-29 [facility] HospitalAnion Xnc1732-82-51 06:00:00* Test Item Value Reference Range Interpretation Comments Anion Gap (test code = 58867-1) 13.2 8-16 [facility] HospitalBlood Urea Gjwteqdr5260-22-96 06:00:00* Test Item Value Reference Range Interpretation Comments Blood Urea Nitrogen (test code = 3094-0) 14 7-26 [facility] HospitalCreatinine2019-01-19 06:00:00* Test Item Value Reference Range Interpretation Comments Creatinine (test code = 2160-0) 0.84 0.72-1.25 [facility] HospitalBUN/Creatinine Yysqj8081-06-59 06:00:00* Test Item Value Reference Range Interpretation Comments BUN/Creatinine Ratio (test code = 3097-3) 17 6-25 [facility] HospitalEstimat Glomerular Filtration Rate 2018-05-22 06:00:00* Test Item Value Reference Range Interpretation Comments Estimat Glomerular Filtration Rate (test code = 081240901) > 60 >60 Ranges were taken from the National Kidney Disease Education Program and the [facility] Kidney Foundation literature.Reference ranges:60 or greater: Iparon88-69 ( for 3 consecutive months): Chronic kidney disease 15 or less: Kidney failureFaith Community HospitalGlucose Vghdw6184-74-72 06:00:00* Test Item Value Reference Range Interpretation Comments Glucose Level (test code = SWB3492) 156 74-118 H [facility] HospitalCalcium Vxqni6372-10-33 06:00:00* Test Item Value Reference Range Interpretation Comments Calcium Level (test code = 27898-0) 8.8 8.4-10.2 [facility] HospitalCreatine Exmtff7685-37-65 09:56:00* Test Item Value Reference Range Interpretation Comments Creatine Kinase (test code = 2157-6) 670 30-200 H [facility] HospitalCreatine Delyqv9687-94-13 09:56:00* Test Item Value Reference Range Interpretation Comments Creatine Kinase (test code = 2157-6) 670 30-200 H [facility] HospitalCreatine Wtzyvt4576-63-80 09:56:00* Test Item Value Reference Range Interpretation Comments Creatine Kinase (test code = 2157-6) 670 30-200 H [facility] HospitalTriglycerides Hrzke2819-76-24 05:48:00* Test Item Value Reference Range Interpretation Comments Triglycerides Level (test code = 2571-8) 59 0-149 [facility] HospitalCholesterol Tcpci1882-20-07 05:48:00* Test Item Value Reference Range Interpretation Comments Cholesterol Level (test code = 2093-3) 159 0-199 Less than 200 mg/dL Low Wcpv590 - 239 mg/dL Borderline Xghx133 m g/dl and greater High Risk [facility] HospitalLDL Elakcnjnwiv8630-54-02 05:48:00* Test Item Value Reference Range Interpretation Comments LDL Cholesterol (test code = 9-1) 103 60-130 [facility] HospitalHDL Jnsowetcctr9312-26-01 05:48:00* Test Item Value Reference Range Interpretation Comments HDL Cholesterol (test code = 2085-9) 44 40-60 [facility] HospitalCholesterol/HDL Ilhki2365-57-84 05:48:00 * Test Item Value Reference Range Interpretation Comments Cholesterol/HDL Ratio (test code = 9830-1) 3.6 3.9-4.7 L [facility] HospitalTriglycerides Nfagx2617-99-08 05:48:00* Test Item Value Reference Range Interpretation Comments Triglycerides Level (test code = 2571-8) 59 0-149 [facility] HospitalCholesterol Yuviy6623-08-58 05:48:00* Test Item Value Reference Range Interpretation Comments Cholesterol Level (test code = 2093-3) 159 0-199 Less than 200 mg/dL Low Shsx137 - 239 mg/dL Borderline Quam301 m g/dl and greater High Risk [facility] HospitalLDL Onarletejth2400-40-40 05:48:00* Test Item Value Reference Range Interpretation Comments LDL Cholesterol (test code = 2089-1) 103 60-130 [facility] HospitalHDL Huhuoyuuajo3999-63-96 05:48:00* Test Item Value Reference Range Interpretation Comments HDL Cholesterol (test code = 2085-9) 44 40-60 [facility]Cholesterol/HDL Xslvm8655-46-32 05:48:00 * Test Item Value Reference Range Interpretation Comments Cholesterol/HDL Ratio (test code = 9830-1) 3.6 3.9-4.7 L [facility] HospitalCreatine Kinase CS9604-96-14 16:04:00* Test Item Value Reference Range Interpretation Comments Creatine Kinase MB (test code = 65450-1) 1.20 0-5.0 [facility] V2905-04-68 16:04:00* Test Item Value Reference Range Interpretation Comments Troponin I (test code = TFW6649) 0.009 0-0.300 [facility] HospitalCreatine Kinase [id number] 16:04:00* Test Item Value Reference Range Interpretation Comments Creatine Kinase MB (test code = 65840-2) 1.20 0-5.0 [facility] [id number] 16:04:00* Test Item Value Reference Range Interpretation Comments Troponin I (test code = MDY0530) 0.009 0-0.300 [facility] HospitalCreatine Kinase NO7919-44-30 16:04:00* Test Item Value Reference Range Interpretation Comments Creatine Kinase MB (test code = 47175-9) 1.20 0-5.0 [place] 97639019-01-17 16:04:00* Test Item Value Reference Range Interpretation Comments Troponin I (test code = FQR5911) 0.009 0-0.300 [facility] Dmknbtdsp8832-63-19 07:30:00* Test Item Value Reference Range Interpretation Comments Total Bilirubin (test code = 1975-2) 0.3 0.2-1.2 [facility] HospitalAspartate Amino Transf (AST/SGOT) 2018-05-20 07:30:00* Test Item Value Reference Range Interpretation Comments Aspartate Amino Transf (AST/SGOT) (test code = Aspartate Amino Transf (AST/SGOT)) 34 5-34 [facility] HospitalAlanine Aminotransferase (ALT/SGPT) 2018-05-20 07:30:00* Test Item Value Reference Range Interpretation Comments Alanine Aminotransferase (ALT/SGPT) (test code = 1742-6) 27 0-55 [facility] Quwxlbz1964-17-30 07:30:00* Test Item Value Reference Range Interpretation Comments Total Protein (test code = 2885-2) 5.8 6.5-8.1 L [facility] HospitalAlbumin2019-01-17 07:30:00* Test Item Value Reference Range Interpretation Comments Albumin (test code = 1751-7) 3.1 3.5-5.0 L [facility] HospitalGlobulin2019-01-17 07:30:00* Test Item Value Reference Range Interpretation Comments Globulin (test code = 46145-3) 2.7 2.3-3.5 [facility] HospitalAlbumin/Globulin Dchjk3745-48-13 07:30:00 * Test Item Value Reference Range Interpretation Comments Albumin/Globulin Ratio (test code = 1759-0) 1.1 0.8-2.0 [facility] HospitalAlkaline Kuzcoircmtk6676-78-21 07:30:00* Test Item Value Reference Range Interpretation Comments Alkaline Phosphatase (test code = 6768-6) 58 40-150 [facility] HospitalTotal Hziqobati3545-87-18 07:30:00* Test Item Value Reference Range Interpretation Comments Total Bilirubin (test code = 1975-2) 0.3 0.2-1.2 [facility] HospitalAspartate Amino Transf (AST/SGOT) 2018-05-20 07:30:00* Test Item Value Reference Range Interpretation Comments Aspartate Amino Transf (AST/SGOT) (test code = Aspartate Amino Transf (AST/SGOT)) 34 5-34 [facility] HospitalAlanine Aminotransferase (ALT/SGPT) 2018-05-20 07:30:00* Test Item Value Reference Range Interpretation Comments Alanine Aminotransferase (ALT/SGPT) (test code = 1742-6) 27 0-55 [facility] HospitalTotal Pxablcw9994-42-37 07:30:00* Test Item Value Reference Range Interpretation Comments Total Protein (test code = 2885-2) 5.8 6.5-8.1 L [facility] HospitalAlbumin2019-01-17 07:30:00* Test Item Value Reference Range Interpretation Comments Albumin (test code = 1751-7) 3.1 3.5-5.0 L [facility] HospitalGlobulin2019-01-17 07:30:00* Test Item Value Reference Range Interpretation Comments Globulin (test code = 14233-8) 2.7 2.3-3.5 [facility] HospitalAlbumin/Globulin Mwkps5125-06-43 07:30:00 * Test Item Value Reference Range Interpretation Comments Albumin/Globulin Ratio (test code = 1759-0) 1.1 0.8-2.0 [facility] HospitalAlkaline Qyqppiyoicf9302-27-90 07:30:00* Test Item Value Reference Range Interpretation Comments Alkaline Phosphatase (test code = 6768-6) 58 40-150 [facility] HospitalWhite Blood Wosdt6994-92-00 06:55:00* Test Item Value Reference Range Interpretation Comments White Blood Count (test code = 6690-2) 3.13 4.8-10.8 L [facility] HospitalRed Blood Cuiok0248-66-58 06:55:00* Test Item Value Reference Range Interpretation Comments Red Blood Count (test code = 789-8) 4.21 4.3-5.7 L [facility] HospitalHemoglobin2019-01-17 06:55:00* Test Item Value Reference Range Interpretation Comments Hemoglobin (test code = 76042-3) 12.4 14.0-18.0 L [facility] HospitalHematocrit2019-01-17 06:55:00* Test Item Value Reference Range Interpretation Comments Hematocrit (test code = 4544-3) 37.2 38.2-49.6 L [facility] HospitalMean Corpuscular Zsaags0716-89-32 06:55:00* Test Item Value Reference Range Interpretation Comments Mean Corpuscular Volume (test code = 787-2) 88.4 81-99 [facility] HospitalMean Corpuscular Vwomicllcs1206-34-85 06:55:00* Test Item Value Reference Range Interpretation Comments Mean Corpuscular Hemoglobin (test code = 785-6) 29.5 28-32 [facility] HospitalMean Corpuscular Hemoglobin Concent 2018-05-20 06:55:00* Test Item Value Reference Range Interpretation Comments Mean Corpuscular Hemoglobin Concent (test code = 786-4) 33.3 31-35 [facility] HospitalRed Cell Distribution Rsslu5297-47-81 06:55:00* Test Item Value Reference Range Interpretation Comments Red Cell Distribution Width (test code = 14667-7) 12.7 11.7 -14.4 [facility] HospitalPlatelet Mvbkx8760-09-54 06:55:00* Test Item Value Reference Range Interpretation Comments Platelet Count (test code = 777-3) 116 140-360 L [facility] HospitalNeutrophils (%) (Auto)2018-05-20 06:55:00 * Test Item Value Reference Range Interpretation Comments Neutrophils (%) (Auto) (test code = 21545-4) 80.5 38.7-80.0 H [facility] HospitalLymphocytes (%) (Auto)2018-05-20 06:55:00 * Test Item Value Reference Range Interpretation Comments Lymphocytes (%) (Auto) (test code = 736-9) 16.3 18.0-39.1 L [facility] HospitalMonocytes (%) (Auto)2018-05-20 06:55:00* Test Item Value Reference Range Interpretation Comments Monocytes (%) (Auto) (test code = 5905-5) 2.6 4.4-11.3 L [facility] HospitalEosinophils (%) (Auto)2018-05-20 06:55:00 * Test Item Value Reference Range Interpretation Comments Eosinophils (%) (Auto) (test code = 713-8) 0.0 0.0-6.0 [facility] HospitalBasophils (%) (Auto)2018-05-20 06:55:00* Test Item Value Reference Range Interpretation Comments Basophils (%) (Auto) (test code = 706-2) 0.3 0.0-1.0 [facility] HospitalIM GRANULOCYTES %2018-05-20 06:55:00* Test Item Value Reference Range Interpretation Comments IM GRANULOCYTES % (test code = IM GRANULOCYTES %) 0.3 0.0- 1.0 [facility] HospitalNeutrophils # (Auto)2018-05-20 06:55:00* Test Item Value Reference Range Interpretation Comments Neutrophils # (Auto) (test code = 751-8) 2.5 2.1-6.9 [facility] HospitalLymphocytes # (Auto)2018-05-20 06:55:00* Test Item Value Reference Range Interpretation Comments Lymphocytes # (Auto) (test code = 10456-2) 0.5 1.0-3.2 L [facility] HospitalMonocytes # (Auto)2018-05-20 06:55:00* Test Item Value Reference Range Interpretation Comments Monocytes # (Auto) (test code = 742-7) 0.1 0.2-0.8 L [facility] HospitalEosinophils # (Auto)2018-05-20 06:55:00* Test Item Value Reference Range Interpretation Comments Eosinophils # (Auto) (test code = 711-2) 0.0 0.0-0.4 [facility] HospitalBasophils # (Auto)2018-05-20 06:55:00* Test Item Value Reference Range Interpretation Comments Basophils # (Auto) (test code = 704-7) 0.0 0.0-0.1 [facility] HospitalAbsolute Immature Granulocyte (auto 2018-05-20 06:55:00* Test Item Value Reference Range Interpretation Comments Absolute Immature Granulocyte (auto (sudha t code = Absolute Immature Granulocyte (auto) 0.01 0-0.1 [facility] HospitalWhite Blood Eqjlg1097-11-95 06:55:00* Test Item Value Reference Range Interpretation Comments White Blood Count (test code = 6690-2) 3.13 4.8-10.8 L [facility] HospitalRed Blood Mqohf8145-87-67 06:55:00* Test Item Value Reference Range Interpretation Comments Red Blood Count (test code = 789-8) 4.21 4.3-5.7 L [facility] HospitalHemoglobin2019-01-17 06:55:00* Test Item Value Reference Range Interpretation Comments Hemoglobin (test code = 91175-3) 12.4 14.0-18.0 L [facility] HospitalHematocrit2019-01-17 06:55:00* Test Item Value Reference Range Interpretation Comments Hematocrit (test code = 4544-3) 37.2 38.2-49.6 L [facility] HospitalMean Corpuscular Kwfpas5520-51-42 06:55:00* Test Item Value Reference Range Interpretation Comments Mean Corpuscular Volume (test code = 787-2) 88.4 81-99 [facility] HospitalMean Corpuscular Nmaeidtfrv6354-14-99 06:55:00* Test Item Value Reference Range Interpretation Comments Mean Corpuscular Hemoglobin (test code = 785-6) 29.5 28-32 [facility] HospitalMean Corpuscular Hemoglobin Concent 2018-05-20 06:55:00* Test Item Value Reference Range Interpretation Comments Mean Corpuscular Hemoglobin Concent (test code = 786-4) 33.3 31-35 [facility] HospitalRed Cell Distribution Lnuod4687-02-04 06:55:00* Test Item Value Reference Range Interpretation Comments Red Cell Distribution Width (test code = 69642-0) 12.7 11.7 -14.4 [facility] HospitalPlatelet Zjgbz0466-55-40 06:55:00* Test Item Value Reference Range Interpretation Comments Platelet Count (test code = 777-3) 116 140-360 L [facility] HospitalNeutrophils (%) (Auto)2018-05-20 06:55:00 * Test Item Value Reference Range Interpretation Comments Neutrophils (%) (Auto) (test code = 36119-4) 80.5 38.7-80.0 H [facility] HospitalLymphocytes (%) (Auto)2018-05-20 06:55:00 * Test Item Value Reference Range Interpretation Comments Lymphocytes (%) (Auto) (test code = 736-9) 16.3 18.0-39.1 L [facility] HospitalMonocytes (%) (Auto)2018-05-20 06:55:00* Test Item Value Reference Range Interpretation Comments Monocytes (%) (Auto) (test code = 5905-5) 2.6 4.4-11.3 L [facility] HospitalEosinophils (%) (Auto)2018-05-20 06:55:00 * Test Item Value Reference Range Interpretation Comments Eosinophils (%) (Auto) (test code = 713-8) 0.0 0.0-6.0 [facility] HospitalBasophils (%) (Auto)2018-05-20 06:55:00* Test Item Value Reference Range Interpretation Comments Basophils (%) (Auto) (test code = 706-2) 0.3 0.0-1.0 [facility] HospitalIM GRANULOCYTES %2018-05-20 06:55:00* Test Item Value Reference Range Interpretation Comments IM GRANULOCYTES % (test code = IM GRANULOCYTES %) 0.3 0.0- 1.0 [facility] HospitalNeutrophils # (Auto)2018-05-20 06:55:00* Test Item Value Reference Range Interpretation Comments Neutrophils # (Auto) (test code = 751-8) 2.5 2.1-6.9 [facility] HospitalLymphocytes # (Auto)2018-05-20 06:55:00* Test Item Value Reference Range Interpretation Comments Lymphocytes # (Auto) (test code = 31332-7) 0.5 1.0-3.2 L [facility] HospitalMonocytes # (Auto)2018-05-20 06:55:00* Test Item Value Reference Range Interpretation Comments Monocytes # (Auto) (test code = 742-7) 0.1 0.2-0.8 L [facility] HospitalEosinophils # (Auto)2018-05-20 06:55:00* Test Item Value Reference Range Interpretation Comments Eosinophils # (Auto) (test code = 711-2) 0.0 0.0-0.4 [facility] HospitalBasophils # (Auto)2018-05-20 06:55:00* Test Item Value Reference Range Interpretation Comments Basophils # (Auto) (test code = 704-7) 0.0 0.0-0.1 [facility] HospitalAbsolute Immature Granulocyte (auto 2018-05-20 06:55:00* Test Item Value Reference Range Interpretation Comments Absolute Immature Granulocyte (auto (sudha t code = Absolute Immature Granulocyte (auto) 0.01 0-0.1 [facility] HospitalUrine QLP6687-85-77 01:49:00* Test Item Value Reference Range Interpretation Comments Urine WBC (test code = 5821-4) 0-5 0-5 [facility] BQD9614-17-33 01:49:00* Test Item Value Reference Range Interpretation Comments Urine RBC (test code = 11972-5) 0-5 0-5 [facility] Sjjnneti7066-36-11 01:49:00* Test Item Value Reference Range Interpretation Comments Urine Bacteria (test code = 25380-4) RARE NONE [facility] Epithelial Ktgck2650-62-66 01:49:00 * Test Item Value Reference Range Interpretation Comments Urine Epithelial Cells (test code = 45861-5) RARE NONE [facility] Pqfye0017-76-07 01:49:00* Test Item Value Reference Range Interpretation Comments Urine Mucus (test code = 8247-9) FEW RARE H [facility] XSZ4030-44-91 01:49:00* Test Item Value Reference Range Interpretation Comments Urine WBC (test code = 5821-4) 0-5 0-5 [facility] LUV5435-64-88 01:49:00* Test Item Value Reference Range Interpretation Comments Urine RBC (test code = 58445-8) 0-5 0-5 [facility] Aacuixin9323-61-12 01:49:00* Test Item Value Reference Range Interpretation Comments Urine Bacteria (test code = 21358-7) RARE NONE [facility] HospitalU[facility] Epithelial Llhcc7214-32-91 01:49:00 * Test Item Value Reference Range Interpretation Comments Urine Epithelial Cells (test code = 66629-5) RARE NONE [facility] Eabhk3477-19-84 01:49:00* Test Item Value Reference Range Interpretation Comments Urine Mucus (test code = 8247-9) FEW RARE H [facility] HospitalU[facility] Cufbg3844-84-07 01:49:00* Test Item Value Reference Range Interpretation Comments Urine Mucus (test code = 8247-9) FEW RARE H [facility] HospitalU[facility] Laojr1626-70-46 01:42:00* Test Item Value Reference Range Interpretation Comments Urine Color (test code = 5778-6) YELLOW YELLOW [facility] HospitalU[facility] Fkmmmms1106-95-92 01:42:00* Test Item Value Reference Range Interpretation Comments Urine Clarity (test code = 97334-9) CLEAR CLEAR [facility] Specific Ftsailz8752-20-70 01:42:00 * Test Item Value Reference Range Interpretation Comments Urine Specific [place] (test code = 5811-5) 1.025 1.010-1.02 5 [facility] HospitalU[facility] zX4656-02-77 01:42:00* Test Item Value Reference Range Interpretation Comments Urine pH (test code = 86285-2) 6 5-7 [facility] HospitalU[facility] Leukocyte Oncfndzh7001-30-56 01:42:00* Test Item Value Reference Range Interpretation Comments Urine Leukocyte Esterase (test code = 5799-2) NEGATIVE NEGATIVE [facility] HospitalU[facility] Yyuiwju1218-66-72 01:42:00* Test Item Value Reference Range Interpretation Comments Urine Nitrite (test code = 12827-9) NEGATIVE NEGATIVE [facility] Uydpgby1733-69-19 01:42:00* Test Item Value Reference Range Interpretation Comments Urine Protein (test code = 5804-0) NEGATIVE NEGATIVE [facility] HospitalU[facility] Glucose (UA)2018-05-20 01:42:00* Test Item Value Reference Range Interpretation Comments Urine Glucose (UA) (test code = 2349-9) NEGATIVE NEGATIVE [facility] Ueutpwd8914-13-84 01:42:00* Test Item Value Reference Range Interpretation Comments Urine Ketones (test code = 40609-3) 1+ NEGATIVE H [facility] HospitalU[facility] Cqwpgjnjttyy7282-96-43 01:42:00* Test Item Value Reference Range Interpretation Comments Urine Urobilinogen (test code = 68889-6) 0.2 0.2-1 [facility] Axhtxfutt3954-17-96 01:42:00* Test Item Value Reference Range Interpretation Comments Urine Bilirubin (test code = 1978-6) NEGATIVE NEGATIVE [facility] HospitalU[facility] Flipt0083-23-60 01:42:00* Test Item Value Reference Range Interpretation Comments Urine Blood (test code = 39741-4) NEGATIVE NEGATIVE [facility] Doxok7293-07-15 01:42:00* Test Item Value Reference Range Interpretation Comments Urine Color (test code = 5778-6) YELLOW YELLOW [facility] HospitalU[facility] Rjpviiq6179-01-69 01:42:00* Test Item Value Reference Range Interpretation Comments Urine Clarity (test code = 04575-8) CLEAR CLEAR [facility] Specific Nihynbh0842-27-71 01:42:00 * Test Item Value Reference Range Interpretation Comments Urine Specific [place] (test code = 5811-5) 1.025 1.010-1.02 5 [facility] hK4154-35-07 01:42:00* Test Item Value Reference Range Interpretation Comments Urine pH (test code = 07739-0) 6 5-7 [facility] Leukocyte Uydlrhnf3950-46-01 01:42:00* Test Item Value Reference Range Interpretation Comments Urine Leukocyte Esterase (test code = 5799-2) NEGATIVE NEGATIVE [facility] Usouvsr8385-00-45 01:42:00* Test Item Value Reference Range Interpretation Comments Urine Nitrite (test code = 45525-7) NEGATIVE NEGATIVE [facility] Ibscmsb6246-34-38 01:42:00* Test Item Value Reference Range Interpretation Comments Urine Protein (test code = 5804-0) NEGATIVE NEGATIVE [facility] Glucose (UA)2018-05-20 01:42:00* Test Item Value Reference Range Interpretation Comments Urine Glucose (UA) (test code = 2349-9) NEGATIVE NEGATIVE [facility] Fhdskqz0185-09-67 01:42:00* Test Item Value Reference Range Interpretation Comments Urine Ketones (test code = 76634-1) 1+ NEGATIVE H [facility] Edpnbpkgxspv3357-62-20 01:42:00* Test Item Value Reference Range Interpretation Comments Urine Urobilinogen (test code = 04230-8) 0.2 0.2-1 [facility] Mpuaypvxl2473-94-04 01:42:00* Test Item Value Reference Range Interpretation Comments Urine Bilirubin (test code = 1978-6) NEGATIVE NEGATIVE [facility] Qsjor5349-47-50 01:42:00* Test Item Value Reference Range Interpretation Comments Urine Blood (test code = 02874-3) NEGATIVE NEGATIVE [facility] Opiates Udgxxy8348-39-69 01:36:00* Test Item Value Reference Range Interpretation Comments Urine Opiates Screen (test code = 45455-7) POSITIVE NEGATIVE H ALL TESTS PERFORMED MANUALLY ON [employer] TOX/SEE TEST This test provides only a sc reen. Positive results should be repeated by a confirmatory test.[facility] Barbiturates Vdzwua4260-32-68 01:36:00* Test Item Value Reference Range Interpretation Comments Urine Barbiturates Screen (test code = 636988936) NEGATIVE NEGA TIVE [facility] Phencyclidine Rebxdd6788-32-35 01:36:00* Test Item Value Reference Range Interpretation Comments Urine Phencyclidine Screen (test code = 15522-7) NEGATIVE NEGAT CUCO [facility] Amphetamines Aikiqq4082-71-66 01:36:00* Test Item Value Reference Range Interpretation Comments Urine Amphetamines Screen (test code = 47103-5) NEGATIVE NEGATI VE [facility] Methamphetamines Omitgh3115-06-44 01:36:00* Test Item Value Reference Range Interpretation Comments Urine Methamphetamines Screen (test code = Urine Metha mphetamines Screen) NEGATIVE NEGATIVE [facility] Benzodiazepines Qdvwxz5335-29-27 01:36:00* Test Item Value Reference Range Interpretation Comments Urine Benzodiazepines Screen (test code = 62712-6) POSITIVE NEG ATIVE H This test provides only a screen. Positive results should be repeated by a confi rmatory test.[facility] HospitalU[facility] Cocaine Screen 2018-05-20 01:36:00* Test Item Value Reference Range Interpretation Comments Urine Cocaine Screen (test code = 3398-5) NEGATIVE NEGATIVE [facility] Cannabinoids Cxlpwh9881-38-87 01:36:00* Test Item Value Reference Range Interpretation Comments Urine Cannabinoids Screen (test code = 36720-6) NEGATIVE NEGATI VE THESE RESULTS ARE FOR MEDICAL TREATMENT ONLYTHIS REPORT CONTAINS UNCONFIR MED SCREENING RESULTS*POSITIVE RESULTS WILL BE CONFIRMED BY REFERENCE LAB UPON R EQUEST CUT-OFFDRUG CLASS CONCENTRATION ng/mLAmphetamines 1000Methamphetamines 1000Cocaine 300Opiate 300Phencyc lidine 25Cannabinoid 50Barbiturates 300Benzodiazepine 300Methadone 300[facility] HospitalU[facility] Methadone Eoanlb3485-99-97 01:36:00* Test Item Value Reference Range Interpretation Comments Urine Methadone Screen (test code = 46659-5) NEGATIVE NEGATIVE THESE RESULTS ARE FOR MEDICAL TREATMENT ONLYTHIS REPORT CONTAINS UNCONFIR MED SCREENING RESULTS*POSITIVE RESULTS WILL BE CONFIRMED BY REFERENCE LAB UPON R EQUEST CUT-OFFDRUG CLASS CONCENTRATION ng/mLAmphetamines 1000Methamphetamines 1000Cocaine Metabolite 300Opiate 300Phencyc lidine 25Cannabinoid 50Barbiturates 300Benzodiazepine 300Methadone 300[facility] HospitalU[facility] Opiates Bwgzyu6324-76-00 01:36:00* Test Item Value Reference Range Interpretation Comments Urine Opiates Screen (test code = 64491-9) POSITIVE NEGATIVE H ALL TESTS PERFORMED MANUALLY ON [employer] TOX/SEE TEST This test provides only a sc reen. Positive results should be repeated by a confirmatory test.[facility] HospitalU[facility] Barbiturates Drmasw9036-98-63 01:36:00* Test Item Value Reference Range Interpretation Comments Urine Barbiturates Screen (test code = 889542476) NEGATIVE NEGA TIVE [facility] Phencyclidine Wgievv4931-28-93 01:36:00* Test Item Value Reference Range Interpretation Comments Urine Phencyclidine Screen (test code = 05837-2) NEGATIVE NEGAT CUCO [facility] Amphetamines Dpxdqs5956-69-89 01:36:00* Test Item Value Reference Range Interpretation Comments Urine Amphetamines Screen (test code = 07684-2) NEGATIVE NEGATI VE [facility] Methamphetamines Dzzghh2640-51-10 01:36:00* Test Item Value Reference Range Interpretation Comments Urine Methamphetamines Screen (test code = Urine Metha mphetamines Screen) NEGATIVE NEGATIVE [facility] Hospital[facility] Benzodiazepines Fbuutv4193-78-95 01:36:00* Test Item Value Reference Range Interpretation Comments Urine Benzodiazepines Screen (test code = 96167-3) POSITIVE NEG ATIVE H This test provides only a screen. Positive results should be repeated by a confi rmatory test.[facility] HospitalU[facility] Cocaine Screen 2018-05-20 01:36:00* Test Item Value Reference Range Interpretation Comments Urine Cocaine Screen (test code = 3398-5) NEGATIVE NEGATIVE [facility] Cannabinoids Wdukdd5796-26-85 01:36:00* Test Item Value Reference Range Interpretation Comments Urine Cannabinoids Screen (test code = 15317-1) NEGATIVE NEGATI VE THESE RESULTS ARE FOR MEDICAL TREATMENT ONLYTHIS REPORT CONTAINS UNCONFIR MED SCREENING RESULTS*POSITIVE RESULTS WILL BE CONFIRMED BY REFERENCE LAB UPON R EQUEST CUT-OFFDRUG CLASS CONCENTRATION ng/mLAmphetamines 1000Methamphetamines 1000Cocaine 300Opiate 300Phencyc lidine 25Cannabinoid 50Barbiturates 300Benzodiazepine 300Methadone 300[facility] Bhbuhl5618-14-36 01:36:00* Test Item Value Reference Range Interpretation Comments Urine Methadone Screen (test code = 11316-8) NEGATIVE NEGATIVE THESE RESULTS ARE FOR MEDICAL TREATMENT ONLYTHIS REPORT CONTAINS UNCONFIR MED SCREENING RESULTS*POSITIVE RESULTS WILL BE CONFIRMED BY REFERENCE LAB UPON R EQUEST CUT-OFFDRUG CLASS CONCENTRATION ng/mLAmphetamines 1000Methamphetamines 1000Cocaine Metabolite 300Opiate 300Phencyc lidine 25Cannabinoid 50Barbiturates 300Benzodiazepine 300Methadone 300[facility] I8914-48-98 00:41:00 [facility] [place] [address] Patient Name: SANA CHIN MR #: [id number] : 1960 Age/Sex: 58/M Req #: [id number] Adm Physician: Ordered by: RAFAEL AVILA MD Report #: [id number] Location: ER Room/Bed: Procedure: [id number] CT /CT CHEST W Exam Date: 05/20/18 Exam Time: 0015 REPORT STATUS: Signed EXAM: CT CHEST W INDICATION: Shortness of breath COMPARISON: None TECHNIQUE: Multidete ctor CT scanning of the chest was performed. Coronal and sagittal multiplanar reformations were obtained. Dose modulation, iterative reconstruction, and/or weight based adjustment of the mA/kV was utilized to reduce the radiation dose to as low as reasonably achievable. PE protocol performed. IV Contrast: 100 cc Isovue-370 CTDIvol has been reviewed. It is below the limits set by the R adiation Protocol Committee (RPC). FINDINGS: LUNGS AND AIRWAYS: The tra rito and major bronchi are unremarkable. No consolidations or edema. Mild cent ral bronchial thickening. PLEURA: No effusions or pneumothorax. HEART, MEDIASTINUM, VESSELS: The heart is within normal size limits. There is no per icardial effusion. No mediastinal mass or lymphadenopathy. No evidence of a pu lmonary embolism. Multiple artifacts in subsegmental vessels secondary to karlene on. UPPER ABDOMEN: Normal MUSCULOSKELETAL: No acute findings. IMP RESSION: No evidence of a pulmonary embolism. Signed by: Dr. Kurt Jang M.D. on 05/20/2018 12:51 AM Dictated By: KURT JANG MD El ectronically Signed By: KURT JANG MD on 05/20/18 0051 Transcribed By: ANIL KEN on 05/20/18 0051 COPY TO: RAFAEL AVILA MD D-Dimer Quantitative (PE/DVT)2018-05-19 23:52:00* Test Item Value Reference Range Interpretation Comments D-Dimer Quantitative (PE/DVT) (test code = 64054-1) 0.69 0. 00-0.45 [facility] ([facility]/DVT)2018-05-19 23:52:00* Test Item Value Reference Range Interpretation Comments D-Dimer Quantitative (PE/DVT) (test code = 94451-7) 0.69 0. 00-0.45 [facility] (PE/DVT)2018-05-19 23:52:00* Test Item Value Reference Range Interpretation Comments D-Dimer Quantitative (PE/DVT) (test code = 49110-1) 0.69 0. 00-0.45 H [facility] HospitalProthrombin Fdkx9077-84-19 23:46:00* Test Item Value Reference Range Interpretation Comments Prothrombin Time (test code = 5902-2) 12.3 11.9-14.5 [facility] HospitalProthromb Time International Ratio 2018-05-19 23:46:00* Test Item Value Reference Range Interpretation Comments Prothromb Time International Ratio (test code = 6301-6) 0.84 Oral Anticoagulant Therapy INR Values:1. Low Intensity Therapy 1.5 - 2.02 . Moderate Intensity Therapy 2.0 - 3.03. High Intensity Therapy(1) 2.5 - 3. 54. High Intensity Therapy(2) 3.0 - 4.05. Panic Value INR > 5.0 [facility] HospitalActivated Partial Thromboplast Time 2018-05-19 23:46:00* Test Item Value Reference Range Interpretation Comments Activated Partial Thromboplast Time (test code = 09172-6) 28.8 23.8-35.5 [facility] HospitalProthrombin Wldr3047-89-98 23:46:00* Test Item Value Reference Range Interpretation Comments Prothrombin Time (test code = 5902-2) 12.3 11.9-14.5 [facility] HospitalProthromb Time International Ratio 2018-05-19 23:46:00* Test Item Value Reference Range Interpretation Comments Prothromb Time International Ratio (test code = 6301-6) 0.84 Oral Anticoagulant Therapy INR Values:1. Low Intensity Therapy 1.5 - 2.02 . Moderate Intensity Therapy 2.0 - 3.03. High Intensity Therapy(1) 2.5 - 3. 54. High Intensity Therapy(2) 3.0 - 4.05. Panic Value INR > 5.0 [facility]Act[facility] Partial Thromboplast Time 2018-05-19 23:46:00* Test Item Value Reference Range Interpretation Comments Activated Partial Thromboplast Time (test code = 88180-0) 28.8 23.8-35.5 [facility] HospitalProthrombin Hnmk3802-11-89 23:46:00* Test Item Value Reference Range Interpretation Comments Prothrombin Time (test code = 5902-2) 12.3 11.9-14.5 [facility] HospitalProthromb Time International Ratio 2018-05-19 23:46:00* Test Item Value Reference Range Interpretation Comments Prothromb Time International Ratio (test code = 6301-6) 0.84 Oral Anticoagulant Therapy INR Values:1. Low Intensity Therapy 1.5 - 2.02 . Moderate Intensity Therapy 2.0 - 3.03. High Intensity Therapy(1) 2.5 - 3. 54. High Intensity Therapy(2) 3.0 - 4.05. Panic Value INR > 5.0 [facility] HospitalAct[facility] Partial Thromboplast Time 2018-05-19 23:46:00* Test Item Value Reference Range Interpretation Comments Activated Partial Thromboplast Time (test code = 27058-2) 28.8 23.8-35.5 [facility] HospitalB-Type Natriuretic Lofnyub1474-13-37 23:36:00* Test Item Value Reference Range Interpretation Comments B-Type Natriuretic Peptide (test code = 39449-1) 55.5 0-100 [facility] Natriuretic Lxyitgy7331-43-84 23:36:00* Test Item Value Reference Range Interpretation Comments B-Type Natriuretic Peptide (test code = 99856-7) 55.5 0-100 [facility] HospitalMagnesium Tzyii7286-06-93 23:32:00* Test Item Value Reference Range Interpretation Comments Magnesium Level (test code = 33950-2) 2.1 1.3-2.1 [facility] HospitalMagnesium Bafha0728-66-02 23:32:00* Test Item Value Reference Range Interpretation Comments Magnesium Level (test code = 65302-6) 2.1 1.3-2.1 [facility] HospitalCHEST 2 HQICJ6438-85-89 21:22:00 [facility] [address] [address] Patient Name: SANA CHIN MR #: [id number] : 1960 Age/Sex: 58/M Req #: [id number] Adm Physician: Ordered by: JARED HE INTERNAL AFFAIRS COMMANDER Report #: [id number] Location: ER Room/Bed: Procedure: [id number] DX/CHEST 2 VIEWS Exam Date: 05/19/18 Exam Time: 2057 REPORT STATUS: Signed EXAM: [facility] 2 VIEWS, PA and lateral INDICATION: Cough COMPARISON: PA and lateral view of the chest May 17, 2017 FINDINGS: LINES/TUBES: None LUNGS: No consolidations or edema. Nodular density projects over the left hilum is most consistent with an end-on vessel. PLEURA: No effusions or pneumothorax. HEART AND MEDIASTINUM: Normal size and contour. BONES AND SOFT TISSUES: No acute findings. 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 IMPRES SERGIO: No consolidative pneumonia. Signed by: Dr. Kurt Jang M.D. on 05/19/2018 9:24 PM Dictated By: KURT JANG MD 23 Transcribed By: HENRI on 2123 COPY TO: JARED HE NP Influenza Virus Types A,B Joerngu1547-61-72 15:37:00* Test Item Value Reference Range Interpretation Comments Influenza Virus Types A,B Antigen (test code = 79586-6) NEGATIVE NEGATIVE [facility] HospitalGroup A Streptococcus Ewrnuw7380-46-21 15:37:00* Test Item Value Reference Range Interpretation Comments Group A Streptococcus Screen (test code = 19749-8) NEGATIVE NEG ATIVE [facility] HospitalInfluenza Virus Types A,B Antigen 2018-05-17 15:37:00* Test Item Value Reference Range Interpretation Comments Influenza Virus Types A,B Antigen (test code = 64217-7) NEGATIVE NEGATIVE [facility] Hospital[facility] A Streptococcus Akzqyo3344-34-03 15:37:00* Test Item Value Reference Range Interpretation Comments Group A Streptococcus Screen (test code = 65861-8) NEGATIVE NEG ATIVE [facility] HospitalInfluenza Virus Types A,B Antigen 2018-05-17 15:37:00* Test Item Value Reference Range Interpretation Comments Influenza Virus Types A,B Antigen (test code = 28041-3) NEGATIVE NEGATIVE [facility]Group A Streptococcus Rmywcm3305-30-34 15:37:00* Test Item Value Reference Range Interpretation Comments Group A Streptococcus Screen (test code = 99566-5) NEGATIVE NEG ATIVE [facility] HospitalInfluenza Virus Types A,B Antigen 2018-05-17 15:37:00* Test Item Value Reference Range Interpretation Comments Influenza Virus Types A,B Antigen (test code = 26504-7) NEGATIVE NEGATIVE [facility] HospitalGroup A Streptococcus Yynnzb3999-15-89 15:37:00* Test Item Value Reference Range Interpretation Comments Group A Streptococcus Screen (test code = 16976-9) NEGATIVE NEG ATIVE [facility] HospitalCHEST 2 BOPWJ5365-73-06 15:20:[address] [address] Patient Name: SANA CHIN MR #: [id number] : 1960 Age/Sex: 58/M Req #: [id number] Adm Physician: Ordered by: JARED HE INTERNAL AFFAIRS COMMANDER Report #: [id number] Location: ER Room/Bed: Procedure: [id number] DX/CHEST 2 VIEWS Exam Date: 05/17/18 Exam Time: 1434 REPORT STATUS: Signed Frontal a nd lateral views of the chest. HISTORY: Trouble breathing COMPARISON: N one available. DISCUSSION: Lungs: Prominence of the peribr onchial markings. No evidence of a consolidative pneumonia or pulmonary alveol ar edema. A 5 mm left mid to upper lung zone calcified granuloma. Pleura: No pleural effusion or pneumothorax. Heart and mediastinum: The ca rdiomediastinal silhouette appears unremarkable. Bones: Straightening o f the normal thoracic kyphosis. IMPRESSION: 1. Findings which could be seen in the setting of bronchitis. 2. No consolidative pneumonia. Sig kala by: Mi BatesOuLis E, M.M.M. on 05/17/2018 3:23 PM Dictated By: Dillon ABEBE DO 1523 Transc ribed By: HENRI on 05/17/18 1523 COPY TO: JARED HE INTERNAL AFFAIRS COMMANDER B- Type Natriuretic Tbvbmrv8564-43-25 15:09:00* Test Item Value Reference Range Interpretation Comments B-Type Natriuretic Peptide (test code = 15393-8) 102.7 0-100 [facility] HospitalCreatine Kinase CN5164-51-82 15:01:00* Test Item Value Reference Range Interpretation Comments Creatine Kinase MB (test code = 27188-5) 1.00 0-5.0 [facility] HospitalTroponin V2608-10-05 15:01:00* Test Item Value Reference Range Interpretation Comments Troponin I (test code = SSX9196) < 0.001 0-0.300 [facility] Qamxn7176-03-84 14:54:00* Test Item Value Reference Range Interpretation Comments Sodium Level (test code = 2951-2) 134 136-145 L [facility] HospitalPotassium Pyoor5325-55-26 14:54:00* Test Item Value Reference Range Interpretation Comments Potassium Level (test code = 2823-3) 4.1 3.5-5.1 [facility] HospitalChloride Vjksb3096-57-20 14:54:00* Test Item Value Reference Range Interpretation Comments Chloride Level (test code = 2075-0) 103 98-107 [facility] HospitalCarbon Dioxide Hesel1768-87-94 14:54:00* Test Item Value Reference Range Interpretation Comments Carbon Dioxide Level (test code = 2028-9) 22 22-29 [facility] HospitalAnion Lpp2504-23-54 14:54:00* Test Item Value Reference Range Interpretation Comments Anion Gap (test code = 89179-2) 13.1 8-16 [facility] HospitalBlood Urea Bticieny4536-75-74 14:54:00* Test Item Value Reference Range Interpretation Comments Blood Urea Nitrogen (test code = 3094-0) 15 7-26 [facility] HospitalCreatinine2019-01-14 14:54:00* Test Item Value Reference Range Interpretation Comments Creatinine (test code = 2160-0) 1.26 0.72-1.25 H [facility] HospitalBUN/Creatinine Rhxns2180-14-94 14:54:00* Test Item Value Reference Range Interpretation Comments BUN/Creatinine Ratio (test code = 3097-3) 12 6-25 [facility] HospitalEstimat Glomerular Filtration Rate 2018-05-17 14:54:00* Test Item Value Reference Range Interpretation Comments Estimat Glomerular Filtration Rate (test code = 375657116) 59 >60 L Ranges were taken from the National Kidney Disease Education Program and the [facility] Kidney Foundation literature.Reference ranges:60 or greater: Bcupsg02-48 ( for 3 consecutive months): Chronic kidney disease 15 or less: Kidney failureFaith Community HospitalGlucose Owryj6570-42-84 14:54:00* Test Item Value Reference Range Interpretation Comments Glucose Level (test code = KKN0083) 105 74-118 [facility] HospitalCalcium Qetcd0486-01-46 14:54:00* Test Item Value Reference Range Interpretation Comments Calcium Level (test code = 65436-6) 9.0 8.4-10.2 [facility] HospitalTotal Spobbuoii0820-38-94 14:54:00* Test Item Value Reference Range Interpretation Comments Total Bilirubin (test code = 1975-2) 0.7 0.2-1.2 [facility] HospitalAspartate Amino Transf (AST/SGOT) 2018-05-17 14:54:00* Test Item Value Reference Range Interpretation Comments Aspartate Amino Transf (AST/SGOT) (test code = Aspartate Amino Transf (AST/SGOT)) 22 5-34 [facility] HospitalAlanine Aminotransferase (ALT/SGPT) 2018-05-17 14:54:00* Test Item Value Reference Range Interpretation Comments Alanine Aminotransferase (ALT/SGPT) (test code = 1742-6) 34 0-55 [facility] HospitalTotal Wegaybd1767-63-62 14:54:00* Test Item Value Reference Range Interpretation Comments Total Protein (test code = 2885-2) 6.5 6.5-8.1 [facility] HospitalAlbumin2019-01-14 14:54:00* Test Item Value Reference Range Interpretation Comments Albumin (test code = 1751-7) 4.1 3.5-5.0 [facility] HospitalGlobulin2019-01-14 14:54:00* Test Item Value Reference Range Interpretation Comments Globulin (test code = 00869-4) 2.4 2.3-3.5 [facility] HospitalAlbumin/Globulin Axchq2364-93-68 14:54:00 * Test Item Value Reference Range Interpretation Comments Albumin/Globulin Ratio (test code = 1759-0) 1.7 0.8-2.0 [facility] HospitalAlkaline Ujobsryicfg9867-05-25 14:54:00* Test Item Value Reference Range Interpretation Comments Alkaline Phosphatase (test code = 6768-6) 82 40-150 [facility] HospitalCreatine Ggirtd6372-73-54 14:54:00* Test Item Value Reference Range Interpretation Comments Creatine Kinase (test code = 2157-6) 214 30-200 H [facility] HospitalLactic Acid Eqwep3674-99-31 14:43:00* Test Item Value Reference Range Interpretation Comments Lactic Acid Level (test code = Lactic Acid Level) 8.4 4.5- 19.8 [facility] HospitalLactic Acid Jizzk5199-25-44 14:43:00* Test Item Value Reference Range Interpretation Comments Lactic Acid Level (test code = Lactic Acid Level) 8.4 4.5- 19.8 [facility] HospitalLactic Acid Vkyio2891-41-90 14:43:00* Test Item Value Reference Range Interpretation Comments Lactic Acid Level (test code = Lactic Acid Level) 8.4 4.5- 19.8 [facility] HospitalProthrombin Aqdj5564-73-71 14:41:00* Test Item Value Reference Range Interpretation Comments Prothrombin Time (test code = 5902-2) 13.0 11.9-14.5 [facility] HospitalProthromb Time International Ratio 2018-05-17 14:41:00* Test Item Value Reference Range Interpretation Comments Prothromb Time International Ratio (test code = 6301-6) 0.90 Oral Anticoagulant Therapy INR Values:1. Low Intensity Therapy 1.5 - 2.02 . Moderate Intensity Therapy 2.0 - 3.03. High Intensity Therapy(1) 2.5 - 3. 54. High Intensity Therapy(2) 3.0 - 4.05. Panic Value INR > 5.0 [facility] HospitalActivated Partial Thromboplast Time 2018-05-17 14:41:00* Test Item Value Reference Range Interpretation Comments Activated Partial Thromboplast Time (test code = 01314-5) 28.3 23.8-35.5 [facility] HospitalWhite Blood Qkyas9017-58-02 14:40:00* Test Item Value Reference Range Interpretation Comments White Blood Count (test code = 6690-2) 6.02 4.8-10.8 [facility] HospitalRed Blood Jhkxh8863-39-96 14:40:00* Test Item Value Reference Range Interpretation Comments Red Blood Count (test code = 789-8) 4.86 4.3-5.7 [facility] HospitalHemoglobin2019-01-14 14:40:00* Test Item Value Reference Range Interpretation Comments Hemoglobin (test code = 33770-7) 14.6 14.0-18.0 [facility] HospitalHematocrit2019-01-14 14:40:00* Test Item Value Reference Range Interpretation Comments Hematocrit (test code = 4544-3) 42.1 38.2-49.6 [facility] HospitalMean Corpuscular Aizbzx7786-85-33 14:40:00* Test Item Value Reference Range Interpretation Comments Mean Corpuscular Volume (test code = 787-2) 86.6 81-99 [facility] HospitalMean Corpuscular Gctnjemzjd9259-78-36 14:40:00* Test Item Value Reference Range Interpretation Comments Mean Corpuscular Hemoglobin (test code = 785-6) 30.0 28-32 [facility] HospitalMean Corpuscular Hemoglobin Concent 2018-05-17 14:40:00* Test Item Value Reference Range Interpretation Comments Mean Corpuscular Hemoglobin Concent (test code = 786-4) 34.7 31-35 [facility] HospitalRed Cell Distribution Taqnf0930-34-32 14:40:00* Test Item Value Reference Range Interpretation Comments Red Cell Distribution Width (test code = 55785-9) 12.5 11.7 -14.4 [facility] HospitalPlatelet Vzzwq8197-34-85 14:40:00* Test Item Value Reference Range Interpretation Comments Platelet Count (test code = 777-3) 143 140-360 [facility] HospitalNeutrophils (%) (Auto)2018-05-17 14:40:00 * Test Item Value Reference Range Interpretation Comments Neutrophils (%) (Auto) (test code = 86965-4) 82.4 38.7-80.0 H [facility] HospitalLymphocytes (%) (Auto)2018-05-17 14:40:00 * Test Item Value Reference Range Interpretation Comments Lymphocytes (%) (Auto) (test code = 736-9) 6.5 18.0-39.1 L [facility] HospitalMonocytes (%) (Auto)2018-05-17 14:40:00* Test Item Value Reference Range Interpretation Comments Monocytes (%) (Auto) (test code = 5905-5) 9.5 4.4-11.3 [facility] HospitalEosinophils (%) (Auto)2018-05-17 14:40:00 * Test Item Value Reference Range Interpretation Comments Eosinophils (%) (Auto) (test code = 713-8) 0.8 0.0-6.0 [facility] HospitalBasophils (%) (Auto)2018-05-17 14:40:00* Test Item Value Reference Range Interpretation Comments Basophils (%) (Auto) (test code = 706-2) 0.5 0.0-1.0 [facility] HospitalIM GRANULOCYTES %2018-05-17 14:40:00* Test Item Value Reference Range Interpretation Comments IM GRANULOCYTES % (test code = IM GRANULOCYTES %) 0.3 0.0- 1.0 [facility] HospitalNeutrophils # (Auto)2018-05-17 14:40:00* Test Item Value Reference Range Interpretation Comments Neutrophils # (Auto) (test code = 751-8) 5.0 2.1-6.9 [facility] HospitalLymphocytes # (Auto)2018-05-17 14:40:00* Test Item Value Reference Range Interpretation Comments Lymphocytes # (Auto) (test code = 41608-7) 0.4 1.0-3.2 L [facility] HospitalMonocytes # (Auto)2018-05-17 14:40:00* Test Item Value Reference Range Interpretation Comments Monocytes # (Auto) (test code = 742-7) 0.6 0.2-0.8 [facility] HospitalEosinophils # (Auto)2018-05-17 14:40:00* Test Item Value Reference Range Interpretation Comments Eosinophils # (Auto) (test code = 711-2) 0.1 0.0-0.4 [facility] HospitalBasophils # (Auto)2018-05-17 14:40:00* Test Item Value Reference Range Interpretation Comments Basophils # (Auto) (test code = 704-7) 0.0 0.0-0.1 [facility] HospitalAbsolute Immature Granulocyte (auto 2018-05-17 14:40:00* Test Item Value Reference Range Interpretation Comments Absolute Immature Granulocyte (auto (sudha t code = Absolute Immature Granulocyte (auto) 0.02 0-0.1 [facility] HospitalUrine Zupsb1491-14-97 10:51:00* Test Item Value Reference Range Interpretation Comments Urine Color (test code = 5778-6) YELLOW YELLOW [facility] HospitalUrine Uzykiii0786-94-03 10:51:00* Test Item Value Reference Range Interpretation Comments Urine Clarity (test code = 83348-4) SL CLOUDY CLEAR H [facility] HospitalUrine Specific Ybblzag9289-29-30 10:51:00 * Test Item Value Reference Range Interpretation Comments Urine Specific [place] (test code = 5811-5) 1.030 1.010-1.02 5 H [facility] HospitalUrine lV4725-31-11 10:51:00* Test Item Value Reference Range Interpretation Comments Urine pH (test code = 32293-7) 5 5-7 [facility] HospitalUrine Leukocyte Eingpxmb1827-99-89 10:51:00* Test Item Value Reference Range Interpretation Comments Urine Leukocyte Esterase (test code = 5799-2) NEGATIVE NEGATIVE [facility] HospitalUrine Ayhrijg1659-78-67 10:51:00* Test Item Value Reference Range Interpretation Comments Urine Nitrite (test code = 45015-7) NEGATIVE NEGATIVE [facility] HospitalUrine Cdhcvmk1997-82-94 10:51:00* Test Item Value Reference Range Interpretation Comments Urine Protein (test code = 5804-0) NEGATIVE NEGATIVE [facility] HospitalUrine Glucose (UA)2017-08-10 10:51:00* Test Item Value Reference Range Interpretation Comments Urine Glucose (UA) (test code = 2349-9) NEGATIVE NEGATIVE [facility] HospitalUrine Fylxivt1477-41-47 10:51:00* Test Item Value Reference Range Interpretation Comments Urine Ketones (test code = 48429-2) NEGATIVE NEGATIVE [facility] HospitalUrine Unqyvwwjjbdi9900-09-62 10:51:00* Test Item Value Reference Range Interpretation Comments Urine Urobilinogen (test code = 09493-8) 0.2 0.2-1 [facility] HospitalUrine Ukujxczel7439-40-80 10:51:00* Test Item Value Reference Range Interpretation Comments Urine Bilirubin (test code = 1978-6) NEGATIVE NEGATIVE [facility] Nhbjf9788-92-54 10:51:00* Test Item Value Reference Range Interpretation Comments Urine Blood (test code = 49266-5) NEGATIVE NEGATIVE [facility] HospitalUrine ZON3960-38-67 10:51:00* Test Item Value Reference Range Interpretation Comments Urine WBC (test code = 5821-4) NONE 0-5 [facility] HospitalUrine PPD0039-90-83 10:51:00* Test Item Value Reference Range Interpretation Comments Urine RBC (test code = 16685-6) 0-5 0-5 [facility] HospitalUrine Ffdbfkwb2703-73-95 10:51:00* Test Item Value Reference Range Interpretation Comments Urine Bacteria (test code = 34420-7) NONE NONE [facility] HospitalUrine Epithelial Drual8244-06-54 10:51:00 * Test Item Value Reference Range Interpretation Comments Urine Epithelial Cells (test code = 85643-1) RARE NONE [facility] HospitalUrine Calcium Oxalate Ouzffcdz5408-19-40 10:51:00* Test Item Value Reference Range Interpretation Comments Urine Calcium Oxalate Crystals (test code = 5774-5) RARE FE W [facility] HospitalUrine Coarse Granular Pyode1869-34-11 10:51:00* Test Item Value Reference Range Interpretation Comments Urine Coarse Granular Casts (test code = 80777-5) 1-5 >0 H [facility] HospitalUrine Ppzro1025-51-57 10:51:00* Test Item Value Reference Range Interpretation Comments Urine Mucus (test code = 8247-9) RARE RARE [facility] HospitalUrine Aosvx6176-59-39 10:51:00* Test Item Value Reference Range Interpretation Comments Urine Color (test code = 5778-6) YELLOW YELLOW [facility] HospitalUrine Jialtng1929-29-70 10:51:00* Test Item Value Reference Range Interpretation Comments Urine Clarity (test code = 99633-3) SL CLOUDY CLEAR H [facility] Specific Medmxpa5367-03-25 10:51:00 * Test Item Value Reference Range Interpretation Comments Urine Specific [place] (test code = 5811-5) 1.030 1.010-1.02 5 H [facility] HospitalUrine xY1249-92-45 10:51:00* Test Item Value Reference Range Interpretation Comments Urine pH (test code = 26384-6) 5 5-7 [facility] HospitalU[facility] Leukocyte Stzkrxmr3681-22-01 10:51:00* Test Item Value Reference Range Interpretation Comments Urine Leukocyte Esterase (test code = 5799-2) NEGATIVE NEGATIVE [facility] Hutiwkw1466-72-05 10:51:00* Test Item Value Reference Range Interpretation Comments Urine Nitrite (test code = 15250-9) NEGATIVE NEGATIVE [facility] HospitalU[facility] Gglszbb0723-07-78 10:51:00* Test Item Value Reference Range Interpretation Comments Urine Protein (test code = 5804-0) NEGATIVE NEGATIVE [facility] HospitalUrine Glucose (UA)2017-08-10 10:51:00* Test Item Value Reference Range Interpretation Comments Urine Glucose (UA) (test code = 2349-9) NEGATIVE NEGATIVE [facility] HospitalUrine Ocokalc0496-75-21 10:51:00* Test Item Value Reference Range Interpretation Comments Urine Ketones (test code = 09731-3) NEGATIVE NEGATIVE [facility] HospitalUrine Utrbrehgqdlh6645-63-32 10:51:00* Test Item Value Reference Range Interpretation Comments Urine Urobilinogen (test code = 01601-9) 0.2 0.2-1 [facility] HospitalUrine Qszkubdtk4848-65-33 10:51:00* Test Item Value Reference Range Interpretation Comments Urine Bilirubin (test code = 1978-6) NEGATIVE NEGATIVE [facility] HospitalUrine Fszob3605-09-04 10:51:00* Test Item Value Reference Range Interpretation Comments Urine Blood (test code = 29729-0) NEGATIVE NEGATIVE [facility] HospitalU[facility] XGS7960-91-62 10:51:00* Test Item Value Reference Range Interpretation Comments Urine WBC (test code = 5821-4) NONE 0-5 [facility] HospitalU[facility] GXT4987-58-95 10:51:00* Test Item Value Reference Range Interpretation Comments Urine RBC (test code = 47571-6) 0-5 0-5 [facility] HospitalUrine Xkdvazem5859-11-17 10:51:00* Test Item Value Reference Range Interpretation Comments Urine Bacteria (test code = 63686-4) NONE NONE [facility] HospitalUrine Epithelial Ujkks6512-87-13 10:51:00 * Test Item Value Reference Range Interpretation Comments Urine Epithelial Cells (test code = 93531-3) RARE NONE [facility] HospitalUrine Calcium Oxalate Rljilczb4145-30-91 10:51:00* Test Item Value Reference Range Interpretation Comments Urine Calcium Oxalate Crystals (test code = 5774-5) RARE FE W [facility] HospitalUrine Coarse Granular Egjoh7697-25-43 10:51:00* Test Item Value Reference Range Interpretation Comments Urine Coarse Granular Casts (test code = 13342-0) 1-5 >0 [facility] Ojuwh2398-33-12 10:51:00* Test Item Value Reference Range Interpretation Comments Urine Mucus (test code = 8247-9) RARE RARE [facility] Calcium Oxalate Wproofpf1644-92-61 10:51:00* Test Item Value Reference Range Interpretation Comments Urine Calcium Oxalate Crystals (test code = 5774-5) RARE FE W [facility] HospitalUrine Coarse Granular Tyrhe0731-93-13 10:51:00* Test Item Value Reference Range Interpretation Comments Urine Coarse Granular Casts (test code = 98116-2) 1-5 >0 [facility] HospitalCreatine Kinase DE7001-03-76 10:47:00* Test Item Value Reference Range Interpretation Comments Creatine Kinase MB (test code = 96480-8) 1.20 0-5.0 [facility] HospitalTroponin E8627-17-76 10:47:00* Test Item Value Reference Range Interpretation Comments Troponin I (test code = HKR5285) -0.001 0-0.300 [facility] Hgfjm6690-84-10 10:41:00* Test Item Value Reference Range Interpretation Comments Sodium Level (test code = 2951-2) 141 136-145 [facility] HospitalPotassium Wehmr3009-40-43 10:41:00* Test Item Value Reference Range Interpretation Comments Potassium Level (test code = 2823-3) 4.1 3.5-5.1 [facility] HospitalChloride Zravp2694-07-07 10:41:00* Test Item Value Reference Range Interpretation Comments Chloride Level (test code = 2075-0) 108 98-107 [facility] HospitalCarbon Dioxide Siagy8437-04-38 10:41:00* Test Item Value Reference Range Interpretation Comments Carbon Dioxide Level (test code = 2028-9) 25 22-29 [facility] HospitalAnion Flu7188-95-87 10:41:00* Test Item Value Reference Range Interpretation Comments Anion Gap (test code = 89358-8) 12.1 8-16 [facility] HospitalBlood Urea Rluafioq4052-06-08 10:41:00* Test Item Value Reference Range Interpretation Comments Blood Urea Nitrogen (test code = 3094-0) 16 7-26 [facility] HospitalCreatinine2018-04-09 10:41:00* Test Item Value Reference Range Interpretation Comments Creatinine (test code = 2160-0) 1.09 0.72-1.25 [facility] HospitalBUN/Creatinine Tmlrb7899-36-93 10:41:00* Test Item Value Reference Range Interpretation Comments BUN/Creatinine Ratio (test code = 3097-3) 15 6-25 [facility] HospitalEstimat Glomerular Filtration Rate 2017-08-10 10:41:00* Test Item Value Reference Range Interpretation Comments Estimat Glomerular Filtration Rate (test code = 03191-5) 60- >60 Ranges were taken from the National Kidney Disease Education Program and the [facility] Kidney Foundation literature.Reference ranges:60 or greater: Piltjy57-81 ( for 3 consecutive months): Chronic kidney disease 15 or less: Kidney failureFaith Community HospitalGlucose Pzgzx7320-16-86 10:41:00* Test Item Value Reference Range Interpretation Comments Glucose Level (test code = NNL8293) 150 74-118 [facility] HospitalCalcium Balke3635-33-19 10:41:00* Test Item Value Reference Range Interpretation Comments Calcium Level (test code = 90575-8) 9.5 8.4-10.2 [facility] HospitalTotal Lccfeglrl4351-57-53 10:41:00* Test Item Value Reference Range Interpretation Comments Total Bilirubin (test code = 1975-2) 0.5 0.2-1.2 [facility] HospitalAspartate Amino Transf (AST/SGOT) 2017-08-10 10:41:00* Test Item Value Reference Range Interpretation Comments Aspartate Amino Transf (AST/SGOT) (test code = Aspartate Amino Transf (AST/SGOT)) 22 5-34 [facility] HospitalAlanine Aminotransferase (ALT/SGPT) 2017-08-10 10:41:00* Test Item Value Reference Range Interpretation Comments Alanine Aminotransferase (ALT/SGPT) (test code = 1742-6) 36 0-55 [facility] HospitalTotal Osoeywd7733-78-42 10:41:00* Test Item Value Reference Range Interpretation Comments Total Protein (test code = 2885-2) 7.0 6.5-8.1 [facility] HospitalAlbumin2018-04-09 10:41:00* Test Item Value Reference Range Interpretation Comments Albumin (test code = 1751-7) 4.0 3.5-5.0 [facility] HospitalGlobulin2018-04-09 10:41:00* Test Item Value Reference Range Interpretation Comments Globulin (test code = 50113-8) 3.0 2.3-3.5 [facility] HospitalAlbumin/Globulin Qfbxn2895-57-17 10:41:00 * Test Item Value Reference Range Interpretation Comments Albumin/Globulin Ratio (test code = 1759-0) 1.3 0.8-2.0 [facility] HospitalAlkaline Kowzhickzcc2450-44-26 10:41:00* Test Item Value Reference Range Interpretation Comments Alkaline Phosphatase (test code = 6768-6) 75 40-150 [facility] HospitalCreatine Iaoxkz9273-19-04 10:41:00* Test Item Value Reference Range Interpretation Comments Creatine Kinase (test code = 2157-6) 92 30-200 [facility] HospitalAmylase Ppbkt6862-10-36 10:41:00* Test Item Value Reference Range Interpretation Comments Amylase Level (test code = 1798-8) 33 25-125 [facility] HospitalLipase2018-04-09 10:41:00* Test Item Value Reference Range Interpretation Comments Lipase (test code = 3040-3) 34 8-78 [facility] HospitalAmylase Zgugt1145-53-80 10:41:00* Test Item Value Reference Range Interpretation Comments Amylase Level (test code = 1798-8) 33 25-125 [facility] HospitalLipase2018-04-09 10:41:00* Test Item Value Reference Range Interpretation Comments Lipase (test code = 3040-3) 34 8-78 [facility] HospitalAmylase Eawjo4620-95-63 10:41:00* Test Item Value Reference Range Interpretation Comments Amylase Level (test code = 1798-8) 33 25-125 [facility] HospitalLipase2018-04-09 10:41:00* Test Item Value Reference Range Interpretation Comments Lipase (test code = 3040-3) 34 8-78 [facility] HospitalProthrombin Enjk9610-25-54 10:32:00* Test Item Value Reference Range Interpretation Comments Prothrombin Time (test code = 5902-2) 12.9 11.9-14.5 [facility] HospitalProthromb Time International Ratio 2017-08-10 10:32:00* Test Item Value Reference Range Interpretation Comments Prothromb Time International Ratio (test code = 6301-6) 1.05 Oral Anticoagulant Therapy INR Values:1. Low Intensity Therapy 1.5 - 2.02 . Moderate Intensity Therapy 2.0 - 3.03. High Intensity Therapy(1) 2.5 - 3. 54. High Intensity Therapy(2) 3.0 - 4.05. Panic Value INR > 5.0 [facility] HospitalActivated Partial Thromboplast Time 2017-08-10 10:32:00* Test Item Value Reference Range Interpretation Comments Activated Partial Thromboplast Time (test code = 52257-6) 26.6 23.8-35.5 [facility] HospitalWhite Blood Eiryq3605-23-10 10:29:00* Test Item Value Reference Range Interpretation Comments White Blood Count (test code = 6690-2) 9.55 4.8-10.8 [facility] HospitalRed Blood Jpgyf4797-44-18 10:29:00* Test Item Value Reference Range Interpretation Comments Red Blood Count (test code = 789-8) 5.46 4.3-5.7 [facility] HospitalHemoglobin2018-04-09 10:29:00* Test Item Value Reference Range Interpretation Comments Hemoglobin (test code = 27694-1) 16.2 14.0-18.0 [facility] HospitalHematocrit2018-04-09 10:29:00* Test Item Value Reference Range Interpretation Comments Hematocrit (test code = 4544-3) 46.6 38.2-49.6 [facility] HospitalMean Corpuscular Obundn9056-83-73 10:29:00* Test Item Value Reference Range Interpretation Comments Mean Corpuscular Volume (test code = 787-2) 85.3 81-99 [facility] HospitalMean Corpuscular Ajnayvznbr1726-16-75 10:29:00* Test Item Value Reference Range Interpretation Comments Mean Corpuscular Hemoglobin (test code = 785-6) 29.7 28-32 [facility] HospitalMean Corpuscular Hemoglobin Concent 2017-08-10 10:29:00* Test Item Value Reference Range Interpretation Comments Mean Corpuscular Hemoglobin Concent (test code = 786-4) 34.8 31-35 [facility] HospitalRed Cell Distribution Dfflf8202-84-31 10:29:00* Test Item Value Reference Range Interpretation Comments Red Cell Distribution Width (test code = 33477-4) 12.6 11.7 -14.4 [facility] HospitalPlatelet Xvncv3490-56-02 10:29:00* Test Item Value Reference Range Interpretation Comments Platelet Count (test code = 777-3) 147 140-360 [facility] HospitalNeutrophils (%) (Auto)2017-08-10 10:29:00 * Test Item Value Reference Range Interpretation Comments Neutrophils (%) (Auto) (test code = 25422-2) 74.4 38.7-80.0 [facility] HospitalLymphocytes (%) (Auto)2017-08-10 10:29:00 * Test Item Value Reference Range Interpretation Comments Lymphocytes (%) (Auto) (test code = 736-9) 17.4 18.0-39.1 L [facility] HospitalMonocytes (%) (Auto)2017-08-10 10:29:00* Test Item Value Reference Range Interpretation Comments Monocytes (%) (Auto) (test code = 5905-5) 5.4 4.4-11.3 [facility] HospitalEosinophils (%) (Auto)2017-08-10 10:29:00 * Test Item Value Reference Range Interpretation Comments Eosinophils (%) (Auto) (test code = 713-8) 2.0 0.0-6.0 [facility] HospitalBasophils (%) (Auto)2017-08-10 10:29:00* Test Item Value Reference Range Interpretation Comments Basophils (%) (Auto) (test code = 706-2) 0.5 0.0-1.0 [facility] HospitalIM GRANULOCYTES %2017-08-10 10:29:00* Test Item Value Reference Range Interpretation Comments IM GRANULOCYTES % (test code = IM GRANULOCYTES %) 0.3 0.0- 1.0 [facility] HospitalNeutrophils # (Auto)2017-08-10 10:29:00* Test Item Value Reference Range Interpretation Comments Neutrophils # (Auto) (test code = 751-8) 7.1 2.1-6.9 H [facility] HospitalLymphocytes # (Auto)2017-08-10 10:29:00* Test Item Value Reference Range Interpretation Comments Lymphocytes # (Auto) (test code = 86928-6) 1.7 1.0-3.2 [facility] HospitalMonocytes # (Auto)2017-08-10 10:29:00* Test Item Value Reference Range Interpretation Comments Monocytes # (Auto) (test code = 742-7) 0.5 0.2-0.8 [facility] HospitalEosinophils # (Auto)2017-08-10 10:29:00* Test Item Value Reference Range Interpretation Comments Eosinophils # (Auto) (test code = 711-2) 0.2 0.0-0.4 [facility] HospitalBasophils # (Auto)2017-08-10 10:29:00* Test Item Value Reference Range Interpretation Comments Basophils # (Auto) (test code = 704-7) 0.1 0.0-0.1 [facility] HospitalAbsolute Immature Granulocyte (auto 2017-08-10 10:29:00* Test Item Value Reference Range Interpretation Comments Absolute Immature Granulocyte (auto (sudha t code = Absolute Immature Granulocyte (auto) 0.03 0-0.1 [facility] [place] [address] Patient Name: SNAA CHIN MR #: [id number] : 1960 Age/Sex: 57/M Req #: [id number] Adm Physician: Ordered by: RM SCHWARTZ NP Report #: [id number] Location: Room/Bed: Procedure: [id number] CT/CT ABDOMEN/PELVIS W Ex am Date: 08/10/17 Exam Time: 1100 REPORT STATUS : Signed PROCEDURE: CT ABDOMEN AND PELVIS WITH CONTRAST TECHNIQUE: T he abdomen and pelvis were scanned utilizing a multidetector helical scanner from the diaphragm to the lesser trochanter after the IV administration of 10 0 cc of Isovue 370 and the oral administration of 100 mL of Isovue-370. Coron al and sagittal multiplanar reformations were obtained. COMPARISON: Non e. INDICATIONS: ABDOMINAL PAIN FINDINGS: LOWER THORAX: Normal. HEPATOBILIARY: Subcentimeter hypodensities in both lobes of the liver (s eries 2, images 27 and 13) are unchanged and likely represent small cysts. No suspicious hepatic lesions. There has been a cholecystectomy. No biliary ductal dilatation. SPLEEN: No splenomegaly. PANCREAS: No focal mass es or ductal dilatation. ADRENALS: No adrenal nodules. KIDNEYS/URETE RS: No hydronephrosis or solid mass lesions. 3 mm nonobstructing stone in the lower pole the right kidney (series 2 image 38). PELVIC ORGANS/BLADDER: Dystrophic calcifications of the prostate gland, unchanged. Bladder is unre markable. PERITONEUM / RETROPERITONEUM: No free air or fluid. LYMPH NODES: No lymphadenopathy. VESSELS: Mild atherosclerotic calcifications of the aorta and its branches. GI TRACT: No distention or wall thickening. There are postsurgical changes from prior appendectomy. BONES AND SOFT TISSUES: Severe degenerative changes at L4-L5 and L5-S1 with sclerosis of L4 and L5. There is endplate irregularity at L5-S1. The appearance is unchanged since at least 12/17/2016. IMPRESSION: Stable 3 mm nonobstructing stone in the right kidney. No ureteral stones. No other findings to explain the patient's abdominal pain. There has been a cholecystectomy and appendecto my. Dictated by: Viet Salazar M.D. on 08/10/2017 at 11:41 Elect ronically approved by: Viet Salazar M.D. on 08/10/2017 at 11:41 Dictated By: VIET SALAZAR MD 1141 Transcribed By: JOSE on 08/10/17 1141 COPY TO: RM VALERA NP
[2019-12-21 13:32] LABS: LIPASE 30 U/L (8-78)
[2019-12-21] MEDS ORDERED: FENTANYL CITRATE/PF 100MCG/2 ML INJ IV ONE (13:45)
--- NOTE | 2019-12-21 14:37 | Diagnostic Imaging Report ---
EXAM: CT Abdomen and Pelvis WITHOUT intravenous contrast INDICATION: Hematuria. Concern for renal stone. COMPARISON: 12/01/2018 TECHNIQUE: Abdomen and pelvis were scanned utilizing a multidetector helical scanner from the lung base to the pubic symphysis without administration of IV contrast. Coronal and sagittal reformations were obtained. Routine technique was performed. IV CONTRAST: None ORAL CONTRAST: Water COMPLICATIONS: None RADIATION DOSE: Total DLP: 759 mGy*cm Dose modulation, iterative reconstruction, and/or weight based adjustment of the mA/kV was utilized to reduce the radiation dose to as low as reasonably achievable. FINDINGS: LOWER THORAX: Normal. HEPATOBILIARY: No focal hepatic lesions. No biliary ductal dilatation. The gallbladder is surgically absent. SPLEEN: No splenomegaly. PANCREAS: No acute inflammatory changes. Hypodensity in the pancreatic tail is noted on image 48 on axial imaging measuring up to 2.5 cm. ADRENALS: No adrenal nodules. KIDNEYS/URETERS: Negative for hydronephrosis or perinephric fluid collection. There is a right interpolar nonobstructing stone measuring up to 5 mm. There are 2 punctate 1 to 2 mm stones at the inferior pole (image #74). There is a 2 mm stone within a proximal right ureter (image 76). There is an additional 2 mm stone within the proximal ureter (image 82). Left inferior pole nonobstructing calculus is noted measuring up to 4 mm. No left ureteral stone is noted. No bladder stone is noted. PELVIC ORGANS/BLADDER: Urinary bladder is decompressed. Prostate is within normal limits of size with coarse calcifications. PERITONEUM / RETROPERITONEUM: No free air or fluid. LYMPH NODES: No lymphadenopathy. VESSELS: Unremarkable. GI TRACT: Appendix is surgically absent. No bowel traction is noted. Descending colon and rectum are decompressed limiting evaluation. No surrounding inflammatory changes are identified. BONES AND SOFT TISSUES: No acute osseous abnormality. Advanced degenerative changes at L4-5 and L5-S1 are noted with bony bridging. No suspicious lytic or blastic lesion is identified. IMPRESSION: 1. Multiple bilateral renal calculi and 2 punctate calculi within the proximal right ureter as described above. The right interpolar and left lower polar calculi are stable compared to prior exam. The right inferior pole and punctate proximal ureteral stones are new since prior exam. Negative for hydronephrosis or surrounding inflammatory changes. No bladder stone is identified. Urinary bladder is decompressed limiting evaluation. 2. Hypodense 2.5 cm lesion within the pancreatic tail probably relates to sequela of multiple prior episodes of pancreatitis and may represent a small pseudocyst. No acute inflammatory changes are identified. Signed by: Manuel Ivy MD on 12/21/2019 2:34 PM
== END 2019-12-21 14:44 | disposition home or self-care (01) ==
LOC: ER 13:17
DX: N20.0 Calculus of kidney (principal); R31.9 Hematuria, unspecified; R10.9 Unspecified abdominal pain; I10 Essential (primary) hypertension; E78.5 Hyperlipidemia, unspecified; K21.9 Gastro-esophageal reflux disease without esophagitis; M54.9 Dorsalgia, unspecified; G89.29 Other chronic pain
CPT/HCPCS: 36415; 74176; 80053; 81001; 82550; 83690; 84484; 85025; 99284; J3010

== ENCOUNTER → 2020-12-21 | Outpatient (CLI) | payer OTHER, MEDICARE | LOC: MRI 14:08 | PROVIDERS: ATTEND Family Medicine | DX: M54.12 Radiculopathy, cervical region (principal) | CPT/HCPCS: 72141 ==

== ENCOUNTER 2021-08-02 20:55 | Emergency (ER) | payer BC ==
[~2021-08-02 20:55] MED LIST changes: +DIOVAN80 MG PO; +MOBIC15 MG PO
[2021-08-02] MEDS ORDERED: TETRACAINE HCL 0.5% OPTH SOLN 4 ML BTL OP ONE (21:00)
[2021-08-02] MEDS ORDERED: FLUORESCEIN SOD(OPTH) 1 MG STRP OP ONE (21:00)
[2021-08-02] MEDS ORDERED: TOBRADEX EYE O3.5 GM OD (21:30)
== END 2021-08-02 21:50 | disposition home or self-care (01) ==
LOC: ER 21:06
DX: S05.01XA Injury of conjunctiva and corneal abrasion without foreign body, right eye, initial encounter (principal); Y93.H2 Activity, gardening and landscaping; I10 Essential (primary) hypertension; E78.5 Hyperlipidemia, unspecified; K21.9 Gastro-esophageal reflux disease without esophagitis; M54.9 Dorsalgia, unspecified; G89.29 Other chronic pain
CPT/HCPCS: 99284

== ENCOUNTER → 2021-08-03 | Day surgery (SDC) | payer BC, MEDICARE, OTHER ==
[~2021-08-03] MED LIST changes: +ESMOLOL HCL 100MG/10ML 10 MG/ML VIAL ONE; +FENTANYL CITRATE/PF 100MCG/2 ML INJ ONE; +GLUCAGON FOR INJ 1 MG VIAL ONE; +HYOSCYAMINE SULFATE 0.5 MG/ML INJ ONE; +LIDOCAINE HCL 1% 2 ML AMP ONE; +LIDOCAINE HCL 2% LOCAL INJ 5 ML SDV VIAL INJ ONE; +MIDAZOLAM HCL 2 MG/2 ML VIAL ONE; +PROPOFOL IV EMULSION 10 MG/ML 20 ML VIAL ONE; +TOBRADEX EYE O3.5 GM OD
[2021-08-03 16:15] VITALS: BP 130/90
== END | disposition home or self-care (01) ==
LOC: OR 10:52
PROVIDERS: ATTEND Internal Medicine Gastroenterology
DX: K29.60 Other gastritis without bleeding (principal); D12.4 Benign neoplasm of descending colon; K22.70 Barrett's esophagus without dysplasia; K20.90 Esophagitis, unspecified without bleeding; K59.09 Other constipation; K57.30 Diverticulosis of large intestine without perforation or abscess without bleeding; K58.9 Irritable bowel syndrome, unspecified; K64.8 Other hemorrhoids; Z71.3 Dietary counseling and surveillance; I10 Essential (primary) hypertension; M06.9 Rheumatoid arthritis, unspecified; M19.90 Unspecified osteoarthritis, unspecified site; J45.909 Unspecified asthma, uncomplicated; E78.5 Hyperlipidemia, unspecified; N20.0 Calculus of kidney; F17.210 Nicotine dependence, cigarettes, uncomplicated; Z71.6 Tobacco abuse counseling; Z01.810 Encounter for preprocedural cardiovascular examination; Z01.812 Encounter for preprocedural laboratory examination; Z20.822 Contact with and (suspected) exposure to COVID-19; Z79.1 Long term (current) use of non-steroidal anti-inflammatories (NSAID); Z79.899 Other long term (current) drug therapy; Z68.28 Body mass index [BMI] 28.0-28.9, adult; Z87.19 Personal history of other diseases of the digestive system; Z80.0 Family history of malignant neoplasm of digestive organs
CPT/HCPCS: 43239; 43450; 45385; 93005; C9113; J1610; J1980; J2001 ×2; J2250; J2704; J3010; U0002

== ENCOUNTER 2021-08-14 01:47 | Inpatient (IN) | payer BC ==
[~2021-08-14] VITALS: Ht 180.3 cm; Wt 86.2 kg
[2021-08-14] VITALS (7 sets, daily range): BP systolic 141–165; BP diastolic 88–98
[~2021-08-14 01:47] MED LIST changes: -ESMOLOL HCL 100MG/10ML 10 MG/ML VIAL ONE; -FENTANYL CITRATE/PF 100MCG/2 ML INJ ONE; -GLUCAGON FOR INJ 1 MG VIAL ONE; -HYOSCYAMINE SULFATE 0.5 MG/ML INJ ONE; -LIDOCAINE HCL 1% 2 ML AMP ONE; -LIDOCAINE HCL 2% LOCAL INJ 5 ML SDV VIAL INJ ONE; -MIDAZOLAM HCL 2 MG/2 ML VIAL ONE; -PROPOFOL IV EMULSION 10 MG/ML 20 ML VIAL ONE
[2021-08-14] MEDS ORDERED: KETOROLAC TROMETHAMINE 60 MG/2 ML VIAL IM ONE (02:00)
[2021-08-14 02:39] LABS: CLARITY,URINE CLEAR (CLEAR); COLOR,URINE YELLOW (YELLOW); KETONES,URINE NEGATIVE (NEGATIVE); LEUKOCYTE ESTERASE ,URINE TRACE (NEGATIVE); NITRITE,URINE NEGATIVE (NEGATIVE); PROTEIN,URINE DIPSTICK NEGATIVE (NEGATIVE); URINE UROBILINOGEN 0.2 mg/dL (0.2 - 1)
[2021-08-14 02:48] LABS: BACTERIA,URINE FEW /HPF; EPITHELIAL CELLS,URINE FEW /LPF; RBC,URINE 21-50 /HPF (0-5); WBC,URINE (MAN) >50 /HPF (0-5)
[2021-08-14] MEDS ORDERED: SODIUM CHLORIDE FLUSH 10 ML SYR INJ PRN (03:15)
[2021-08-14] MEDS ORDERED: ACETAMINOPHEN 325 MG TAB PO PRN (03:15)
[2021-08-14 03:16] LABS: BASOPHILS # (AUTO) 0.1 (0.0-0.1); BASOPHILS % 0.9 % (0.0-1.0); EOSINOPHILS # (AUTO) 0.2 (0.0-0.4); EOSINOPHILS % 2.6 % (0.0-6.0); HEMATOCRIT 43.1 % (38.2-49.6); HEMOGLOBIN 14.3 g/dL (14.0-18.0); LYMPHOCYTES # (AUTO) 1.8 (1.0-3.2); LYMPHOCYTES % 26.2 % (18.0-39.1); MEAN CORPUSCULAR HEMOGLOBIN 28.8 pg (28-32); MEAN CORPUSCULAR HGB CONC 33.2 g/dL (31-35); MEAN CORPUSCULAR VOLUME 86.7 fL (81-99); MONOCYTES # (AUTO) 0.5 (0.2-0.8); MONOCYTES % 7.3 % (4.4-11.3); NEUTROPHILS # (AUTO) 4.4 (2.1-6.9); NEUTROPHILS % 62.7 % (38.7-80.0); PLATELET COUNT 165 x10e3/uL (140-360); RED BLOOD COUNT 4.97 x10e6/uL (4.3-5.7); RED CELL DISTRIBUTION WIDTH 12.8 % (11.7-14.4)
[2021-08-14] MEDS: ONDANSETRON HCL INJ 2MG/ML 2ML 2 MG/ML VIAL IV PRN ×4 (03:26→15:02)
[2021-08-14] MEDS ORDERED: ONDANSETRON HCL INJ 2MG/ML 2ML 2 MG/ML VIAL ONE (03:27)
[2021-08-14] MEDS ORDERED: Morphine 2mg Syringe 2 MG/ML SYR ONE (03:28)
[2021-08-14] MEDS ORDERED: CEFTRIAXONE 1 GM VIAL ONE (03:28)
[2021-08-14 03:29] LABS: ALBUMIN 3.7 g/dL (3.5-5.0); ALBUMIN/GLOBULIN RATIO 1.4 (0.8-2.0); ANION GAP 11.9 mmol/L (8-16); CALCIUM 9.3 mg/dL (8.4-10.2); CREATININE, SERUM 1.07 mg/dL (0.72-1.25); POTASSIUM 3.9 mmol/L (3.5-5.1)
[2021-08-14] MEDS: LOSARTAN POTASSIUM 100 MG TAB PO SCH ×2 (03:37→09:00)
[2021-08-14] MEDS ORDERED: LOSARTAN POTASSIUM 25 MG TAB ONE (03:47)
[2021-08-14] MEDS: HYDROMORPHONE 2MG/ML 2 MG/ML ML IV PRN ×6 (04:40→21:41)
[2021-08-14] MEDS ORDERED: Morphine 4mg Syringe 4 MG/ML INJ IV PRN (07:00)
[2021-08-14] MEDS ORDERED: SODIUM CHLORIDE 0.9% 250ML 250 ML ONE (08:17)
[2021-08-14] MEDS ORDERED: NEBIVOLOL 10 MG TAB PO SCH (09:00)
[2021-08-14] MEDS ORDERED: KETOROLAC TROMETHAMINE 30 MG/ML VIAL IV PRN (10:30)
[2021-08-14] MEDS: SODIUM CHLORIDE 0.9% 1000ML 1,000 ML IV SCH ×2 (11:15→21:15)
[2021-08-14] MEDS ORDERED: PREGABALIN 75 MG CAP PO SCH ×2 (12:30→21:00)
[2021-08-14] MEDS ORDERED: TIZANIDINE HCL 4 MG TAB PO SCH ×2 (12:30→21:00)
[2021-08-14] MEDS ORDERED: LACTULOSE SYRUP 20 GM/30 ML UDC PO PRN (18:15)
[2021-08-14] MEDS ORDERED: TAMSULOSIN HCL 0.4 MG CAP PO ONE (19:30)
[2021-08-14] MEDS: VALSARTAN 80 MG TAB PO SCH (22:29)
[2021-08-14] MEDS: ZOLPIDEM TARTRATE 10 MG TAB PO SCH (22:32)
[2021-08-15] VITALS (7 sets, daily range): BP systolic 141–168; BP diastolic 86–99
[2021-08-15] MEDS: HYDROMORPHONE 2MG/ML 2 MG/ML ML IV PRN ×7 (01:00→21:36)
[2021-08-15 07:02] LABS: BASOPHILS % 0.6 % (0.0-1.0); EOSINOPHILS # (AUTO) 0.2 (0.0-0.4); EOSINOPHILS % 3.9 % (0.0-6.0); HEMATOCRIT 40.9 % (38.2-49.6); HEMOGLOBIN 13.2 g/dL (14.0-18.0); LYMPHOCYTES # (AUTO) 1.3 (1.0-3.2); LYMPHOCYTES % 26.8 % (18.0-39.1); MEAN CORPUSCULAR HEMOGLOBIN 28.8 pg (28-32); MEAN CORPUSCULAR HGB CONC 32.3 g/dL (31-35); MEAN CORPUSCULAR VOLUME 89.3 fL (81-99); MONOCYTES # (AUTO) 0.4 (0.2-0.8); MONOCYTES % 7.3 % (4.4-11.3); NEUTROPHILS % 61.2 % (38.7-80.0); PLATELET COUNT 139 x10e3/uL (140-360); RED BLOOD COUNT 4.58 x10e6/uL (4.3-5.7)
[2021-08-15] MEDS: SODIUM CHLORIDE 0.9% 1000ML 1,000 ML IV SCH ×3 (07:15→17:15)
[2021-08-15 07:37] LABS: ALBUMIN 3.1 g/dL (3.5-5.0); ALBUMIN/GLOBULIN RATIO 1.2 (0.8-2.0); ANION GAP 9.3 mmol/L (8-16); CREATININE, SERUM 1.12 mg/dL (0.72-1.25); POTASSIUM 4.3 mmol/L (3.5-5.1)
[2021-08-15] MEDS: TAMSULOSIN HCL 0.4 MG CAP PO SCH (09:00)
[2021-08-15] MEDS ORDERED: MIDAZOLAM HCL 2 MG/2 ML VIAL ONE (12:51)
[2021-08-15] MEDS ORDERED: FENTANYL CITRATE/PF 100MCG/2 ML INJ ONE (12:51)
[2021-08-15] MEDS ORDERED: ONDANSETRON HCL INJ 2MG/ML 2ML 2 MG/ML VIAL ONE (12:58)
[2021-08-15] MEDS ORDERED: PROPOFOL IV EMULSION 10 MG/ML 20 ML VIAL ONE (12:58)
[2021-08-15] MEDS ORDERED: LIDOCAINE HCL 2% LOCAL INJ 5 ML SDV VIAL INJ ONE (12:58)
[2021-08-15] MEDS ORDERED: POVIDONE IODINE 0.05% 0.05 % ML PO ONE (12:58)
[2021-08-15] MEDS ORDERED: SEVOFLURANE INHAL SOLN 250 ML PEN BTL ONE (12:58)
[2021-08-15] MEDS ORDERED: DEXAMETHASONE SOD PHOS INJ 4 MG/ML SDV ONE (12:58)
[2021-08-15] MEDS ORDERED: IOHEXOL 300 MG/ML 30ML INFUS..BTL ONE (15:13)
[2021-08-15] MEDS ORDERED: B&O 60MG R/S 60 MG SUPP PR ONE (15:13)
[2021-08-15] MEDS ORDERED: B&O 60MG R/S 60 MG SUPP PR PRN (19:45)
[2021-08-15] MEDS ORDERED: PHENAZOPYRIDINE HCL 100 MG TAB PO PRN (20:30)
[2021-08-15] MEDS ORDERED: TIZANIDINE HCL 4 MG TAB PO SCH (21:00)
[2021-08-15] MEDS ORDERED: NEBIVOLOL 10 MG TAB PO SCH (21:00)
[2021-08-15] MEDS ORDERED: PREGABALIN 75 MG CAP PO SCH (21:00)
[2021-08-15] MEDS: VALSARTAN 80 MG TAB PO SCH (22:00)
[2021-08-16] VITALS: BP 149/88
[2021-08-16] MEDS: ZOLPIDEM TARTRATE 10 MG TAB PO SCH (00:01)
[2021-08-16] MEDS: SODIUM CHLORIDE 0.9% 1000ML 1,000 ML IV SCH (00:26)
[2021-08-16] MEDS: HYDROMORPHONE 2MG/ML 2 MG/ML ML IV PRN ×4 (00:56→10:38)
[2021-08-16 05:18] VITALS: BP 162/92
[2021-08-16 07:41] VITALS: BP 146/92
[2021-08-16] MEDS: TAMSULOSIN HCL 0.4 MG CAP PO SCH (07:45)
[2021-08-16] MEDS ORDERED: SOLIFENACIN SUCCINATE 5 MG TAB PO SCH (09:00)
[2021-08-16 09:11] VITALS: BP 146/92
[2021-08-16 10:53] VITALS: BP 157/101
[2021-08-16 12:03] VITALS: BP 157/101
== END 2021-08-16 12:18 | disposition home or self-care (01) | DRG 661 ==
LOC: ER 01:57 → ERHOLD 03:18 → MED/SURG 03:51
PROC: BT141ZZ Fluoroscopy of Kidneys, Ureters and Bladder using Low Osmolar Contrast (ICD-10-PCS; 2021-08-15)
PROC: 0T7D8ZZ Dilation of Urethra, Via Natural or Artificial Opening Endoscopic (ICD-10-PCS; 2021-08-15)
PROC: 0T788DZ Dilation of Bilateral Ureters with Intraluminal Device, Via Natural or Artificial Opening Endoscopic (ICD-10-PCS; principal; 2021-08-15 19:32)
DX: N13.6 Pyonephrosis (principal); I10 Essential (primary) hypertension; N13.9 Obstructive and reflux uropathy, unspecified; F17.200 Nicotine dependence, unspecified, uncomplicated; Z20.822 Contact with and (suspected) exposure to COVID-19
CPT/HCPCS: 36415; 74018; 74176; 74420; 80053; 81001; 85025; 87086; 94799; 99284; C1758; C1769; C2617; J0696; J1100; J1885; J2001; J2250; J2270; J2405; J3010; J7030; J7050; Q9967; U0002

== ENCOUNTER → 2021-09-18 | Day surgery (SDC) | payer BC ==
[2021-09-16 16:01] LABS: BASOPHILS # (AUTO) 0.1 (0.0-0.1); BASOPHILS % 0.8 % (0.0-1.0); EOSINOPHILS # (AUTO) 0.3 (0.0-0.4); EOSINOPHILS % 3.7 % (0.0-6.0); HEMATOCRIT 45.2 % (38.2-49.6); HEMOGLOBIN 14.6 g/dL (14.0-18.0); LYMPHOCYTES # (AUTO) 1.9 (1.0-3.2); LYMPHOCYTES % 24.9 % (18.0-39.1); MEAN CORPUSCULAR HEMOGLOBIN 28.9 pg (28-32); MEAN CORPUSCULAR HGB CONC 32.3 g/dL (31-35); MEAN CORPUSCULAR VOLUME 89.3 fL (81-99); MONOCYTES # (AUTO) 0.5 (0.2-0.8); MONOCYTES % 6.7 % (4.4-11.3); NEUTROPHILS # (AUTO) 4.8 (2.1-6.9); NEUTROPHILS % 63.6 % (38.7-80.0); PLATELET COUNT 187 x10e3/uL (140-360); RED BLOOD COUNT 5.06 x10e6/uL (4.3-5.7); RED CELL DISTRIBUTION WIDTH 12.9 % (11.7-14.4)
[2021-09-16 16:19] LABS: ANION GAP 12.5 mmol/L (8-16); CALCIUM 8.7 mg/dL (8.4-10.2); CREATININE, SERUM 1.03 mg/dL (0.72-1.25); POTASSIUM 4.5 mmol/L (3.5-5.1)
[~2021-09-18] MED LIST changes: +B&O 60MG R/S 60 MG SUPP PR ONE; +CEFTRIAXONE 1 GM VIAL ONE; +DEXAMETHASONE SOD PHOS INJ 4 MG/ML SDV ONE; +EPHEDRINE SULFATE INJ 50 MG/ML VIAL ONE; +FENTANYL CITRATE/PF 100MCG/2 ML INJ ONE; +GENTAMICIN 80MG/NS 100 ML 200 ML IV ONE; +GLYCOPYRROLATE INJ 0.2 MG/ML VIAL ONE; +HYDROCODONE/APAP 5MG-325MG TAB ONE; +IOPAMIDOL 610MG/1ML 300 MG/ML VIAL IV ONE; +LIDOCAINE HCL 1% 2 ML AMP ONE; +LIDOCAINE HCL 2% LOCAL INJ 5 ML SDV VIAL INJ ONE; +MIDAZOLAM HCL 2 MG/2 ML VIAL ONE; +ONDANSETRON HCL INJ 2MG/ML 2ML 2 MG/ML VIAL ONE; +PHENYLEPHRINE HCL 1% 10 MG/ML VIAL ONE; +POVIDONE IODINE 0.05% 0.05 % ML PO ONE; +PROPOFOL IV EMULSION 10 MG/ML 20 ML VIAL ONE; +PROVENTIL HFA6.7 GM INH; +SEVOFLURANE INHAL SOLN 250 ML PEN BTL ONE
[2021-09-18 12:15] VITALS: BP 126/78
== END | disposition home or self-care (01) ==
LOC: OR 08:26
PROVIDERS: ATTEND Urology
DX: N20.1 Calculus of ureter (principal); N20.0 Calculus of kidney; Z46.6 Encounter for fitting and adjustment of urinary device; N32.89 Other specified disorders of bladder; N28.89 Other specified disorders of kidney and ureter; N40.1 Benign prostatic hyperplasia with lower urinary tract symptoms; N13.8 Other obstructive and reflux uropathy; K85.90 Acute pancreatitis without necrosis or infection, unspecified; G89.29 Other chronic pain; I10 Essential (primary) hypertension; R05.9 Cough, unspecified; F17.210 Nicotine dependence, cigarettes, uncomplicated; Z01.818 Encounter for other preprocedural examination; Z01.812 Encounter for preprocedural laboratory examination; Z20.822 Contact with and (suspected) exposure to COVID-19; Z79.899 Other long term (current) drug therapy
CPT/HCPCS: 36415; 52352; 74018; 74420; 80048; 84550; 85025; 88300; C1758; C1769; J0696; J1100; J1580; J2001 ×2; J2250; J2370; J2405; J2704; J3010; Q9967; U0002

== ENCOUNTER 2021-10-30 13:22 | Emergency (ER) | payer BC ==
[~2021-10-30] VITALS: Ht 180.3 cm; Wt 86.2 kg
[~2021-10-30 13:22] MED LIST changes: -B&O 60MG R/S 60 MG SUPP PR ONE; -CEFTRIAXONE 1 GM VIAL ONE; -DEXAMETHASONE SOD PHOS INJ 4 MG/ML SDV ONE; -EPHEDRINE SULFATE INJ 50 MG/ML VIAL ONE; -FENTANYL CITRATE/PF 100MCG/2 ML INJ ONE; -GENTAMICIN 80MG/NS 100 ML 200 ML IV ONE; -GLYCOPYRROLATE INJ 0.2 MG/ML VIAL ONE; -HYDROCODONE/APAP 5MG-325MG TAB ONE; -IOPAMIDOL 610MG/1ML 300 MG/ML VIAL IV ONE; -LIDOCAINE HCL 1% 2 ML AMP ONE; -LIDOCAINE HCL 2% LOCAL INJ 5 ML SDV VIAL INJ ONE; -MIDAZOLAM HCL 2 MG/2 ML VIAL ONE; -ONDANSETRON HCL INJ 2MG/ML 2ML 2 MG/ML VIAL ONE; -PHENYLEPHRINE HCL 1% 10 MG/ML VIAL ONE; -POVIDONE IODINE 0.05% 0.05 % ML PO ONE; -PROPOFOL IV EMULSION 10 MG/ML 20 ML VIAL ONE; -SEVOFLURANE INHAL SOLN 250 ML PEN BTL ONE
[2021-10-30] MEDS ORDERED: KETOROLAC TROMETHAMINE 60 MG/2 ML VIAL IM ONE (14:00)
== END 2021-10-30 16:20 | disposition home or self-care (01) ==
LOC: ER 13:30
DX: M50.31 Other cervical disc degeneration, high cervical region (principal); M48.02 Spinal stenosis, cervical region; Z87.442 Personal history of urinary calculi; I10 Essential (primary) hypertension; E78.5 Hyperlipidemia, unspecified
CPT/HCPCS: 72125; 99283; J1885

== ENCOUNTER 2022-06-23 09:03 | Emergency (ER) | payer MEDICARE, BC, OTHER ==
[~2022-06-23] VITALS: Ht 180.3 cm; Wt 86.2 kg
[~2022-06-23 09:03] MED LIST changes: +CYCLOBENZAPRINE10 MG PO
[2022-06-23] MEDS ORDERED: KETOROLAC TROMETHAMINE 60 MG/2 ML VIAL IM ONE (09:30)
[2022-06-23] MEDS ORDERED: DIPHENHYDRAMINE HCL 25 MG CAP PO ONE (09:45)
== END 2022-06-23 10:30 | disposition home or self-care (01) ==
LOC: ER 09:08
DX: S30.0XXA Contusion of lower back and pelvis, initial encounter (principal); W11.XXXA Fall on and from ladder, initial encounter; Y92.89 Other specified places as the place of occurrence of the external cause; I10 Essential (primary) hypertension; E78.5 Hyperlipidemia, unspecified; J44.9 Chronic obstructive pulmonary disease, unspecified; M54.9 Dorsalgia, unspecified; G89.29 Other chronic pain; Z87.442 Personal history of urinary calculi
CPT/HCPCS: 72131; 99283; J1885

== ENCOUNTER 2022-07-11 16:17 | Emergency (ER) | payer BC ==
[~2022-07-11] VITALS: Ht 180.3 cm; Wt 86.2 kg
[2022-07-11] MEDS ORDERED: KETOROLAC TROMETHAMINE 30 MG/ML VIAL IM STA (17:14)
[2022-07-11] MEDS ORDERED: HYDROCODONE/APAP 10MG-325MG TAB PO ONE (17:15)
== END 2022-07-11 18:26 | disposition home or self-care (01) ==
LOC: ER 16:26
DX: M54.2 Cervicalgia (principal); R51.9 Headache, unspecified; M54.9 Dorsalgia, unspecified; S80.212A Abrasion, left knee, initial encounter; S80.211A Abrasion, right knee, initial encounter; J44.9 Chronic obstructive pulmonary disease, unspecified; I10 Essential (primary) hypertension; W01.0XXA Fall on same level from slipping, tripping and stumbling without subsequent striking against object, initial encounter; Z79.899 Other long term (current) drug therapy; Z87.442 Personal history of urinary calculi
CPT/HCPCS: 70450; 71046; 72125; 72131; 73562 ×2; 99283; J1885

== ENCOUNTER 2024-02-01 13:14 | Emergency (ER) | payer BC ==
[~2024-02-01] VITALS: Ht 180.3 cm; Wt 93.0 kg
[~2024-02-01 13:14] MED LIST changes: +CEFDINIR300 MG PO; +DOXYCYCLINE HY100 MG PO
[2024-02-01 13:41] VITALS: PULSE 75; RESP 16; TEMP 97.8; O2SAT 96
[2024-02-01] MEDS: HYDROCODONE/APAP 10MG-325MG TAB PO ONE (13:49)
== END 2024-02-01 17:38 | disposition home or self-care (01) ==
LOC: ER 13:20
DX: M54.2 Cervicalgia (principal); M54.50 Low back pain, unspecified; G89.29 Other chronic pain; V43.52XA Car driver injured in collision with other type car in traffic accident, initial encounter; Y92.488 Other paved roadways as the place of occurrence of the external cause; I10 Essential (primary) hypertension; J44.9 Chronic obstructive pulmonary disease, unspecified; E78.5 Hyperlipidemia, unspecified; Z87.442 Personal history of urinary calculi
CPT/HCPCS: 70450; 72125; 72131; 99283

== ENCOUNTER 2024-06-26 12:02 | Emergency (ER) | payer BC ==
[~2024-06-26] VITALS: Ht 180.3 cm; Wt 94.3 kg
[~2024-06-26 12:02] MED LIST changes: +NAPROXEN250 MG PO
[2024-06-26 14:09] LABS: BASOPHILS % 0.5 % (0.0-1.0); EOSINOPHILS # (AUTO) 0.1 (0.0-0.4); EOSINOPHILS % 3.2 % (0.0-6.0); HEMATOCRIT 45.9 % (38.2-49.6); HEMOGLOBIN 16.1 g/dL (14.0-18.0); LYMPHOCYTES # (AUTO) 1.7 (1.0-3.2); LYMPHOCYTES % 37.6 % (18.0-39.1); MEAN CORPUSCULAR HEMOGLOBIN 30.4 pg (28-32); MEAN CORPUSCULAR HGB CONC 35.1 g/dL (31-35); MEAN CORPUSCULAR VOLUME 86.8 fL (81-99); MONOCYTES # (AUTO) 0.5 (0.2-0.8); MONOCYTES % 10.4 % (4.4-11.3); NEUTROPHILS # (AUTO) 2.1 (2.1-6.9); NEUTROPHILS % 48.1 % (38.7-80.0); PLATELET COUNT 148 x10e3/uL (140-360); RED BLOOD COUNT 5.29 x10e6/uL (4.3-5.7); RED CELL DISTRIBUTION WIDTH 12.9 % (11.7-14.4); WHITE BLOOD COUNT 4.42 x10e3/uL (4.8-10.8)
[2024-06-26 14:29] LABS: CORONAVIRUS COVID-19 AG NEGATIVE (NEGATIVE); INFLUENZA A AG NEGATIVE (NEGATIVE); INFLUENZA B AG NEGATIVE (NEGATIVE)
[2024-06-26 14:34] LABS: ALBUMIN/GLOBULIN RATIO 1.5 (0.8-2.0); ANION GAP 14.5 mmol/L (8-16); BILIRUBIN,TOTAL 0.5 mg/dL (0.2-1.2); CALCIUM 9.7 mg/dL (8.4-10.2); CREATININE, SERUM 1.03 mg/dL (0.72-1.25); POTASSIUM 3.5 mmol/L (3.5-5.1); TOTAL PROTEIN 6.7 g/dL (6.5-8.1)
[2024-06-26 15:03] VITALS: PULSE 74; RESP 20
[2024-06-26] MEDS: ALBUTEROL/IPRATROPIUM 3 ML NEB NEB ONE (15:03)
[2024-06-26 15:23] LABS: CREATINE KINASE 82 IU/L (30-200)
[2024-06-26 15:31] LABS: TROPONIN I < 0.001 ng/mL (0-0.300)
[2024-06-26] MEDS ORDERED: BENZONATATE200 MG PO (15:55)
[2024-06-26] MEDS ORDERED: PREDNISONE20 MG PO (15:55)
[2024-06-26] MEDS: METHYLPREDNISOLONE SOD SUCC 125 MG/2ML VIAL IV STA (16:42)
[2024-06-26 17:29] VITALS: PULSE 91; RESP 19; TEMP 98.9; O2SAT 97
== END 2024-06-26 17:30 | disposition home or self-care (01) ==
LOC: ER 14:25
DX: R05.9 Cough, unspecified (principal); B34.9 Viral infection, unspecified; J44.9 Chronic obstructive pulmonary disease, unspecified; Z11.52 Encounter for screening for COVID-19; R94.31 Abnormal electrocardiogram [ECG] [EKG]
CPT/HCPCS: 36415; 71046; 80053; 82550; 83880; 84484; 85025; 85379; 87428; 93005; 99285; J2919

== ENCOUNTER 2024-07-05 02:04 | Emergency (ER) | payer BC ==
[~2024-07-05] VITALS: Ht 180.3 cm; Wt 94.3 kg
[~2024-07-05 02:04] MED LIST changes: +BENZONATATE200 MG PO; +PREDNISONE20 MG PO
[2024-07-05] MEDS: ALBUTEROL/IPRATROPIUM 3 ML NEB NEB ONE (02:15)
[2024-07-05 02:17] VITALS: TEMP 98.4
[2024-07-05 02:35] LABS: BASOPHILS % 0.3 % (0.0-1.0); EOSINOPHILS # (AUTO) 0.1 (0.0-0.4); EOSINOPHILS % 0.8 % (0.0-6.0); HEMATOCRIT 42.4 % (38.2-49.6); HEMOGLOBIN 14.7 g/dL (14.0-18.0); LYMPHOCYTES # (AUTO) 1.3 (1.0-3.2); LYMPHOCYTES % 11.1 % (18.0-39.1); MEAN CORPUSCULAR HEMOGLOBIN 30.5 pg (28-32); MEAN CORPUSCULAR HGB CONC 34.7 g/dL (31-35); MONOCYTES # (AUTO) 1.1 (0.2-0.8); MONOCYTES % 9.4 % (4.4-11.3); NEUTROPHILS # (AUTO) 9.2 (2.1-6.9); PLATELET COUNT 262 x10e3/uL (140-360); RED BLOOD COUNT 4.82 x10e6/uL (4.3-5.7); RED CELL DISTRIBUTION WIDTH 12.6 % (11.7-14.4); WHITE BLOOD COUNT 11.75 x10e3/uL (4.8-10.8)
[2024-07-05] MEDS: METHYLPREDNISOLONE SOD SUCC 125 MG/2ML VIAL IV ONE (02:35)
[2024-07-05 02:45] VITALS: PULSE 78; RESP 20; O2SAT 98
[2024-07-05 02:55] LABS: CORONAVIRUS COVID-19 AG NEGATIVE (NEGATIVE); INFLUENZA A AG NEGATIVE (NEGATIVE); INFLUENZA B AG NEGATIVE (NEGATIVE)
[2024-07-05 02:58] LABS: ALBUMIN 3.2 g/dL (3.5-5.0); ALBUMIN/GLOBULIN RATIO 0.8 (0.8-2.0); ANION GAP 19.6 mmol/L (8-16); BILIRUBIN,TOTAL 0.6 mg/dL (0.2-1.2); CALCIUM 9.6 mg/dL (8.4-10.2); CREATININE, SERUM 0.83 mg/dL (0.72-1.25); POTASSIUM 3.6 mmol/L (3.5-5.1); TOTAL PROTEIN 7.4 g/dL (6.5-8.1)
[2024-07-05] MEDS ORDERED: MEDROL4 M2 PEG (03:47)
[2024-07-05] MEDS ORDERED: BENZONATATE200 MG PO (03:47)
[2024-07-05] MEDS ORDERED: DOXYCYCLINE HY100 MG PO (03:47)
[2024-07-05 03:52] VITALS: PULSE 86; RESP 20
[2024-07-05 03:59] VITALS: BP 149/87; PULSE 85; RESP 20; O2SAT 96
== END 2024-07-05 04:01 | disposition home or self-care (01) ==
LOC: ER 02:07
DX: R06.02 Shortness of breath (principal); J44.1 Chronic obstructive pulmonary disease with (acute) exacerbation; J40 Bronchitis, not specified as acute or chronic; R05.9 Cough, unspecified; I10 Essential (primary) hypertension; E78.5 Hyperlipidemia, unspecified; M54.9 Dorsalgia, unspecified; G89.29 Other chronic pain; Z11.52 Encounter for screening for COVID-19; F17.210 Nicotine dependence, cigarettes, uncomplicated
CPT/HCPCS: 36415; 71045; 80053; 83880; 84484; 85025; 87428; 93005; 94640; 94799; 99284; J2919